=== PATIENT | female | born 1980 | race Caucasian/White ===

== ENCOUNTER 2020-03-21 10:20 | Outpatient (CLI) | payer BC, SELFPAY ==
--- NOTE | ~2020-03-21 | MM_ITS ---
EXAMINATION: MM screening rolando BI w lisa HISTORY: Screening TECHNIQUE: Craniocaudal and mediolateral oblique 3-D tomosynthesis images were obtained and synthetic 2-D images were generated. CAD analysis was submitted and interpreted. COMPARISON: No prior mammogram is available for comparison at this institution. BREAST PARENCHYMAL COMPOSITION: There are scattered areas of fibroglandular density. FINDINGS: There are asymmetries in the mid outer aspect of the left breast and upper aspect of the ri ght breast on MLO view. There are no suspicious calcifications or architectural distortion. IMPRESSION: 1. Bilateral breast asymmetries. 2. Additional mammographic views and possible breast ultrasound are recommended. BI-RADS Category 0: Incomplete: Needs additional imaging evaluation. Reviewed, dictated and finalized at location A. CARE MUSIC THERAPIST IMPRESSION: 1. Bilateral breast asymmetries. 2. Additional mammographic views and possible breast ultrasound are recommended . BI-RADS Category 0: Incomplete: Needs additional imaging evaluation.
== END 2020-03-21 10:21 | disposition home or self-care (01) ==
LOC: ANHIMG 10:27
PROVIDERS: PCP Student in an Organized Health Care Education/Training Program; Visit Provider Obstetrics & Gynecology
DX: Z12.31 Encounter for screening mammogram for malignant neoplasm of breast (principal); R92.8 Other abnormal and inconclusive findings on diagnostic imaging of breast
CPT/HCPCS: 77063; 77067

== ENCOUNTER 2020-03-22 10:15 | Outpatient (CLI) | payer BC, SELFPAY | END 2020-03-22 10:16 | disposition home or self-care (01) | PROVIDERS: PCP Student in an Organized Health Care Education/Training Program; Visit Provider Obstetrics & Gynecology | DX: Z01.812 Encounter for preprocedural laboratory examination (principal); R10.2 Pelvic and perineal pain | CPT/HCPCS: 36415; 86850; 86900; 86901 ==

== ENCOUNTER 2020-03-24 00:41 | Outpatient (CLI) | payer BC, SELFPAY ==
[2020-03-24 19:17] LABS: SARS-CoV-2 RNA PCR Negative
== END 2020-03-24 00:42 | disposition home or self-care (01) ==
LOC: ANHCOVIDDT 00:41
PROVIDERS: PCP Student in an Organized Health Care Education/Training Program; Visit Provider Obstetrics & Gynecology
DX: Z01.812 Encounter for preprocedural laboratory examination (principal); Z20.822 Contact with and (suspected) exposure to COVID-19
CPT/HCPCS: C9803; U0003; U0005

== ENCOUNTER 2020-03-27 01:34 | Day surgery (SDC) | payer BC, SELFPAY ==
[2020-03-21 16:15] VITALS: BMI 33.0
--- NOTE | 2020-03-22 08:36 | PM.IMHP ---
H&P: HPI History of Present Illness Date/Time: 03/22/20 08:36 Chief Complaint: pain Narrative: Linnette Rice is a 39 year old female status post hysterectomy is admitted for laparoscopy and possible left cystectomy, possible left salpingo-oophorectomy. The patient is status post hysterectomy and right salpingo-oophorectomy. She has a history of endometriosis. Risks and benefits of this procedure reviewed including but not exclusive of , aspiration pneumonia, bleeding, transfusion, perforation injury to bowel, bladder, ureters, or other internal organs with need for open laparotomy. She voiced good understanding. She had all questions answered. She asked to proceed Review of Systems Review of Systems: All systems reviewed & are unremarkable except as noted in HPI and below PMFSH Social History Social History Smoking packs per day: 1 Smoking cigarettes per day: 20.0 Years smoked: 15 Smoking pack-years: 15.00 Smoking status: Current every day smoker Tobacco type: e-cigarettes/vaping Additional smoking assessment comments: pt smoked cigarettes, 1pck/day for 15 yrs. pt currently vapes Substance use: current Substance use type: marijuana Spiritual care concerns: No Meds Home Medications and Allergies Allergies Allergy/AdvReac Type Severity Reaction Status Date / Time morphine Allergy Mild Rash Verified 03/21/20 16:35 Penicillins Allergy Unknown UNKNOWN Verified 01/05/18 06:25 Exam Const: General: no acute distress Eyes: General: appearance normal, both eyes and all related structures Neck: Neck: supple and no JVD Thyroid: thyroid normal Resp: Effort & Inspection: normal respiratory effort Auscultation: clear to auscultation bilaterally Cardio: Rate: regular rate Rhythm: regular rhythm GI: Inspection: non-distended GI Palp: Yes Soft to palpation, No Tenderness to palpation present (GI) and No Guarding due to palpation present (GI) Auscultation: normal bowel sounds : General: Yes bladder normal to inspection External Female Exam: normal external appearance Speculum Exam - Vagina: normal appearance of the vagina Speculum Exam - Cervix: Cervix absent Bimanual exam- vagina & uterus: uterus absent Bimanual Exam- Adnexa, other: tender Skin: General skin exam: no rashes or lesions noted Extrem: General: normal to inspection and no edema Psych: Mental Status: mental status grossly normal Affect: normal affect Assessment and Plan Additional Plan impression: pelvic pain Plan: Diagnostic laparoscopy
[2020-03-27] VITALS (11 sets, daily range): BP systolic 109–132; BP diastolic 69–98; PULSE 66–105; RESP 16–20; TEMP 36.6; O2SAT 94–100
--- NOTE | 2020-03-27 05:48 | WPDHPUPDATE1 ---
History and Physical Update Update Date/Time: 03/27/20 05:48 History and Physical has been reviewed, including an updated exam of the patient. There are NO changes in the patient's condition. Risks, benefits, and alternatives have been discussed and questions answered. Patient agrees to proceed with procedure.
[2020-03-27] MEDS: LACTATED RINGERS 1,000 ML 30 ML IV CONT ×3 (07:40→11:45)
[2020-03-27] MEDS: ACETAMINOPHEN 500 MG TABLET 1000 MG PO (07:49)
[2020-03-27] MEDS: KETOROLAC 15 MG/ML VIAL (*BKC) IV PUSH (07:50)
--- NOTE | 2020-03-27 09:04 | WPDANESEPPF ---
Anes - Initial Pre Proc Eval Procedure: Operation Date: 03/27/20 09:15 Proposed Procedures p Diagnostic Laparoscopy - Regis Rodriguez MD Date/Time: 03/27/20 09:04 Surgeon: Regis Rodriguez MD Pre Op Diagnosis: Pelvic Pain Patient Data Age: 39 Gender: F Height: 5 ft 10 in Weight: 104.33 kg Allergies Allergy/AdvReac Type Severity Reaction Status Date / Time morphine Allergy Severe Rash Verified 03/27/20 08:57 Penicillins Allergy Unknown UNKNOWN Verified 03/27/20 08:57 Home Medications Medication Instructions Recorded Confirmed Type oxycodone-acetaminophen [Percocet] 1 tablet PO Q4H PRN #20 tablet 03/27/20 Rx Patient hx anesthesia problems: none Family hx anesthesia problems: none PMFSH Past Medical History Medical History Vaping nicotine dependence, non-tobacco product Social History Social History Smoking packs per day: 1 Smoking cigarettes per day: 20.0 Years smoked: 15 Smoking pack-years: 15.00 Smoking status: Current every day smoker Tobacco type: e-cigarettes/vaping Additional smoking assessment comments: pt smoked cigarettes, 1pck/day for 15 yrs. pt currently vapes Substance use: current Substance use type: marijuana Living arrangements: with family Spiritual care concerns: No Anes - Eval Final PreProcedure Day of Procedure 03/27/20 09:04 Patient weight: obese Heart: regular rate and rhythm Lungs: decreased breath sounds Airway: Mallampati scale class II Neurological: alert and oriented Last oral intake: >/= 8 hours ASA classification: III Emergent: no Anesthetic plan: proceed Anesthesia type and monitoring: general ETT and standard monitoring Informed Consent: The patient's anesthetic plan and its attendant risks and benefits were discussed with the patient/family/POA. Questions were solicited and answers provided to the satisfaction of the patient/family/POA.
--- NOTE | 2020-03-27 10:06 | P.OP_ITS ---
Procedure Note - Detailed Date of procedure: 03/27/20 Pre-op diagnosis: Pelvic Pain Surgeon: Regis Rodriguez MD Postop diagnosis: Complex left ovarian cyst/pelvic adhesions/pelvic pain Procedure: Laparoscopic left salpingo-oophorectomy and extensive lysis of adhesions Anesthesia: General endotracheal EBL: 5cc Complications: None Findings: Absent uterus. Multiple adhesions. Complex left tubo-ovarian tubo- ovarian complex. Description procedure the patient was prepped and draped in the normal sterile fashion placed in dorsal lithotomy position. Under excellent general trach anesthesia weighted speculum placed posterior fornix vaginal sponge stick was placed in the bladder drained of clear urine. The weighted speculum was removed gloves were changed. An infraumbilical incision needle passed in. The abdomen filled with CO2 gas to 15 of mercury. The 5mm trocar advanced under direct visualization assuring injury. The patient placed in Trendelenburg and a suprapubic incision made. The 5mm trocar advanced under direct visualization assuring no injury. Multiple adhesions were seen and a complex left ovarian cyst was seen this was surrounded by:. The uterus was absent the right ovary appeared small. The adhesions from the colon to the ovarian complex were sharply dissected using Endo Kareen. A complex left ovarian cyst was seen this was attached to the ovarian fossa gentle dissection assuring no injury to the underlying structures were undertaken until the infundibulopelvic structure could be skeletonized. This was clamped, burned, cut with the LigaSure placed in Endo-Catch and removed through the left lower quadrant incision the adhesions to the vaginal cuff were sharply dissected and vigorous irrigation undertaken to clear vaginal cuff appeared clear and using the sponge stick to simulate intercourse the vagina was noted to be free of these adhesions. Blood loss was estimated at5cc. The lower site removed after gas had been from the abdomen. The upper site removed the incisions closed with 4 Monocryl glue. The instruments removed from the vagina patient. The patient was awakened. She went to recovery in satisfactory condition. All sponge, needle, instrument counts were correct. There were no immediate complications noted
[2020-03-27] MEDS: fentaNYL CITRATE INJ (*CRX) 100 MCG/2 ML VIAL 25 MCG IV PUSH ×8 (10:31→11:07)
[2020-03-27] MEDS: ONDANSETRON INJ 4 MG/2 ML VIAL IV PUSH (11:01)
[2020-03-27] MEDS: SCOPOLAMINE 1.5 MG PATCH TRANSDERM (11:38)
[2020-03-27] MEDS: diphenhydrAMINE HCl INJ 50 MG/ML VIAL 25 MG IV PUSH (11:39)
[2020-03-27] MEDS: oxyCODONE HCL (*CRX) 5 MG TAB IR PO (12:05)
== END 2020-03-27 12:49 | disposition home or self-care (01) ==
PROVIDERS: PCP Student in an Organized Health Care Education/Training Program; Visit Provider Obstetrics & Gynecology
PROC: (CPT 49320; principal; 2020-03-27 09:15)
DX: R10.2 Pelvic and perineal pain (principal); N83.292 Other ovarian cyst, left side; N73.6 Female pelvic peritoneal adhesions (postinfective); E66.9 Obesity, unspecified; Z68.33 Body mass index [BMI] 33.0-33.9, adult
CPT/HCPCS: 58661; 88305; A9270; J0330; J1100; J1200; J1885; J2250; J2405; J2704; J3010; J7030; J7120

== ENCOUNTER 2020-04-17 13:28 | Outpatient (CLI) | payer BC, SELFPAY ==
--- NOTE | ~2020-04-17 | MMUS_ITS ---
EXAMINATION: MM diagnostic rolando BI w lisa, US breast BI limited HISTORY: Focal asymmetry of the left breast and asymmetry of the right breast on baseline screening m ammogram TECHNIQUE: Additional 3-D tomosynthesis images of the breasts were performed and synthetic 2-D images were generated. CAD analysis was submitted and interpreted. High resolution limited bilateral breast ultrasound was performed. COMPARISON: 03/21/2020 FINDINGS: MAMMOGRAPHIC FINDINGS: Right breast: No persistent asymmetry is identified with spot compression of the right breast. Left breast: There is persistent but decreased focal asymmetry in the posterior third of the outer br east at the 3:00 location. No suspicious mass or architectural distortion is identified. ULTRASOUND: There is no evidence of focal abnormal solid or cystic lesion in the vicinity of the right breast asy mmetry or the focal asymmetry of the left breast. IMPRESSION: 1. Probably benign focal asymmetry of the left breast. 2. Recommend 6 month follow-up left diagnostic mammogram and possible ultrasound. BI-RADS category 3, probably benign findings. Reviewed, dictated and finalized at location A. CASE MANAGER HOSPICE IMPRESSION: 1. Probably benign focal asymmetry of the left breast. 2. Recommend 6 month follow-up left diagnostic mammogram and possible ultrasoun d. BI-RADS category 3, probably benign findings.
== END 2020-04-17 13:29 | disposition home or self-care (01) ==
LOC: ANHIMG 13:29
PROVIDERS: PCP Student in an Organized Health Care Education/Training Program; Visit Provider Obstetrics & Gynecology
DX: R92.8 Other abnormal and inconclusive findings on diagnostic imaging of breast (principal)
CPT/HCPCS: 76642; 77062; 77066; G0279

== ENCOUNTER 2020-10-23 12:59 | Outpatient (CLI) | payer BC, SELFPAY ==
--- NOTE | ~2020-10-23 | MMUS_ITS ---
EXAMINATION: MM diagnostic rolando LT w lisa, US breast LT complete HISTORY: Follow-up left breast asymmetry TECHNIQUE: Additional 3-D tomosynthesis images of the left breast were performed and synthetic 2-D im ages were generated. CAD analysis was submitted and interpreted. High resolution complete left breast ultrasound was performed. COMPARISON: Comparison to multiple prior studies sequentially, with oldest reviewed study dated 04/17. BREAST PARENCHYMAL COMPOSITION: Breast composed of scattered areas of fibroglandular density. FINDINGS: MAMMOGRAPHIC FINDINGS: There is a centrally located left breast mass measuring 7 mm, likely benign. There are no suspicious calcifications or architectural distortion. ULTRASOUND: Limited left breast ultrasound: There is 7.6 mm cyst at the 3:00 position, 6 cm from the nipple, like ly corresponding to the mass identified on mammography. No suspicious solid masses. IMPRESSION: 1. No evidence for malignancy in the left breast. Benign findings. 2. Routine yearly screening mammogram and regular clinical breast examination are recommended. BI-RADS Category 2: Benign finding(s). Reviewed, dictated and finalized at location A. IMPRESSION: 1. No evidence for malignancy in the left breast. Benign findings. 2. Routine yearly screening mammogram and regular clinical breast examination a re recommended. BI-RADS Category 2: Benign finding(s).
== END 2020-10-23 13:00 | disposition home or self-care (01) ==
LOC: ANHIMG 13:02
PROVIDERS: PCP Student in an Organized Health Care Education/Training Program; Visit Provider Obstetrics & Gynecology
DX: R92.8 Other abnormal and inconclusive findings on diagnostic imaging of breast (principal)
CPT/HCPCS: 76641; 77061; 77065; G0279

== ENCOUNTER 2021-11-22 07:36 | Outpatient (CLI) | payer BC, SELFPAY ==
--- NOTE | ~2021-11-22 | MM_ITS ---
EXAMINATION: MM screening rolando BI w lisa HISTORY: Screening mammogram TECHNIQUE: Craniocaudal and mediolateral oblique 3-D tomosynthesis images were obtained and synthetic 2-D images were generated. CAD analysis was submitted and interpreted. COMPARISON: 10/23/2020 diagnostic left mammogram and complete left breast ultrasound 04/17/2020 bilateral diagnostic mammogram and Limited bilateral breast ultrasound 03/21/2020 screening bilateral mammogram BREAST PARENCHYMAL COMPOSITION: There are scattered areas of fibroglandular density. FINDINGS: There is no evidence of suspicious mass, calcification, or architectural distortion to sugg est malignancy in either breast. There has been no suspicious interval change. IMPRESSION: 1. No mammographic evidence of malignancy. 2. Recommend routine screening mammography in one year. BI-RADS Category 1: Negative Reviewed, dictated and finalized at location A.
== END 2021-11-22 07:37 | disposition home or self-care (01) ==
PROVIDERS: PCP Student in an Organized Health Care Education/Training Program; Visit Provider Student in an Organized Health Care Education/Training Program
DX: Z12.31 Encounter for screening mammogram for malignant neoplasm of breast (principal)
CPT/HCPCS: 77063; 77067

== ENCOUNTER 2022-01-01 10:27 | Emergency (ER) | payer BC, SELFPAY ==
--- NOTE | ~2022-01-01 | XR_ITS ---
EXAMINATION: XR knee LT min 4V DATE: 01/01/2022 11:37 INDICATION: Left knee pain TECHNIQUE: Four views of the left knee were obtained. COMPARISON: None. FINDINGS: Alignment is normal. No fracture or osteochondral lesion. There is mild tricompartmental os teoarthritis characterized by tiny marginal osteophytes. No joint effusion/synovitis. Soft tissues a re unremarkable. IMPRESSION: 1. No acute osseous abnormality. Reviewed, dictated and finalized at location B. CH WORKER
--- NOTE | ~2022-01-01 | XR_ITS ---
EXAMINATION: XR hand LT min 3V INDICATION: Left hand pain TECHNIQUE: Three views of the left hand are obtained. COMPARISON: None available FINDINGS: Bone alignment is normal. There is no fracture. There is mild osteoarthritis of multiple in terphalangeal joints. The soft tissues are unremarkable. IMPRESSION: 1. No acute osseous abnormality. Reviewed, dictated and finalized at location B. CAPTURE CLERK
[2022-01-01 10:36] VITALS: BP 118/85; PULSE 75; RESP 16; TEMP 36.1; O2SAT 100
--- NOTE | 2022-01-01 11:13 | ED.EXTPRO ---
HPI - Extremity Problem General Chief complaint: Unspecified Stated complaint: Left Hand/Knee Pain Time Seen by Provider: 01/01/22 11:19 Source: patient, RN notes reviewed and old records reviewed Mode of arrival: ambulatory Limitations: no limitations History of Present Illness HPI Narrative: 41-year-old female presents to the [facility] with complaints of left hand pain and left knee pain. Patient denies any direct trauma. Reports swelling to the MCP of the 4th metacarpal. Patient is also complaining of knee pain worse with walking downstairs. Tried making appointment with primary care provider and can not get her in until January. Related Data Allergies Allergy/AdvReac Type Severity Reaction Status Date / Time morphine Allergy Severe Rash Verified 01/01/22 10:55 Penicillins Allergy Unknown UNKNOWN Verified 01/01/22 10:55 Review of Systems Review of Systems: All systems reviewed & are unremarkable except as noted in HPI and below Constitutional: Constitutional: Reports no additional constitutional complaints, Denies chills and Denies fever(s) Eyes: Eyes: Reports no additional eye complaints ENT: Reports system reviewed and no additional complaints, except as documented Cardiovascular: Cardiovascular: Reports no additional cardiovascular complaints Respiratory: Respiratory: Reports no additional respiratory complaints Gastrointestinal: Gastrointestinal: Reports no additional gastrointestinal complaints Musculoskeletal: Musculoskeletal: Reports as per HPI Integumentary/Breasts: Skin/Breast: Reports system reviewed and no additional complaints, except as docu Neurologic: Reports system reviewed and no additional complaints, except as documented Psychiatric: Psychiatric: Reports no additional psychiatric complaints Allergic/Immunologic: Allergic/Immunologic: Reports no additional allergic/immunologic complaints [facility] Past Medical History Medical History Vaping nicotine dependence, non-tobacco product Social History Social History Smoking packs per day: 1 Smoking cigarettes per day: 20.0 Years smoked: 15 Smoking pack-years: 15.00 Smoking status: Current every day smoker Tobacco type: e-cigarettes/vaping Additional smoking assessment comments: pt smoked cigarettes, 1pck/day for 15 yrs. pt currently vapes Substance use: current Substance use type: marijuana Spiritual care concerns: No Comments At the time of my signature, I reviewed and agree with the nursing past medical, surgical, social, and family history. There is no relevant family history pertinent to the patient complaint. Exam Const: General: healthy appearing, comfortable, no acute distress, well developed, alert and well nourished Nutritional Appearance: well nourished Orientation/consciousness: patient oriented x3 Limitations: no limitations HENMT: Head: normal to inspection Ears: external ears normal Eyes: General: appearance normal, both eyes and all related structures Pupils: Equal, round and reactive pupils present Neck: Neck: normal visual inspection, full ROM, no lymphadenopathy and no meningeal signs Chest: Chest palpation & inspection: normal inspection of the chest Resp: Effort & Inspection: normal respiratory effort and no use of accessory muscles Auscultation: clear to auscultation bilaterally, no crackles, no rales, no rhonchi and no wheezes Cardio: Rate: regular rate Rhythm: regular rhythm Back/Spine/Pelvis: Cervical Spine: cervical ROM normal and No Cervical spine tenderness Thoracic/Lumbar Spine: thoracic and lumbar spine normal to inspection and thoraco-lumbar ROM normal Skin: General skin exam: normal color Rashes: no rashes Wounds: no wounds Neuro: General: patient oriented x3, moves all extremities, no meningeal signs and no focal motor deficits Cranial nerves: Yes Equal, round and react
== END 2022-01-01 11:57 | disposition home or self-care (01) ==
PROVIDERS: Emergency Provider Nurse Practitioner; PCP Family Medicine
DX: M17.12 Unilateral primary osteoarthritis, left knee (principal); M19.042 Primary osteoarthritis, left hand; F17.290 Nicotine dependence, other tobacco product, uncomplicated
CPT/HCPCS: 73130; 73564; 99214; G0463

== ENCOUNTER 2022-06-28 19:25 | Emergency (ER) | payer BC, SELFPAY ==
--- NOTE | ~2022-06-28 | XR_ITS ---
EXAM: XR tibia fibula LT 2V DATE: 06/28/2022 20:43 HISTORY: leg pain . COMPARISON: None available. FINDINGS: Normal mineralization. No fracture or dislocation. No lytic or blastic lesion. Joint space s are maintained. No erosion or periosteal change. Soft tissues within normal limits. IMPRESSION: No acute osseous finding in the left tibia/fibula. Reviewed, dictated and finalized at location K.
--- NOTE | ~2022-06-28 | XR_ITS ---
EXAM: XR knee LT min 4V DATE: 06/28/2022 20:43 HISTORY: knee pain . COMPARISON: None available. FINDINGS: Normal mineralization. No fracture or dislocation. No lytic or blastic lesion. Joint space s are maintained. No erosion or periosteal change. Soft tissues within normal limits. Trace left knee joint effusion. Varicose veins. IMPRESSION: No acute osseous finding in the left knee. Reviewed, dictated and finalized at location K.
--- NOTE | ~2022-06-28 | XR_ITS ---
EXAM: XR foot LT min 3V DATE: 06/28/2022 20:42 HISTORY: foot pain . COMPARISON: None available. FINDINGS: Normal mineralization. No fracture or dislocation. No lytic or blastic lesion. Joint space s are maintained. Achilles and plantar enthesopathy. No erosion or periosteal change. Soft tissues wi thin normal limits. IMPRESSION: No acute osseous finding in the left foot. Reviewed, dictated and finalized at location K.
[2022-06-28 19:33] VITALS: BP 118/82; PULSE 89; RESP 18; TEMP 36.9; O2SAT 97
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
== END 2022-06-28 21:34 | disposition home or self-care (01) ==
PROVIDERS: Emergency Provider Emergency Medicine; PCP Family Medicine
DX: S80.12XA Contusion of left lower leg, initial encounter (principal); S80.812A Abrasion, left lower leg, initial encounter; S50.02XA Contusion of left elbow, initial encounter; S89.92XA Unspecified injury of left lower leg, initial encounter; Z87.442 Personal history of urinary calculi; F17.290 Nicotine dependence, other tobacco product, uncomplicated; V86.56XA Driver of dirt bike or motor/cross bike injured in nontraffic accident, initial encounter
CPT/HCPCS: 73564; 73590; 73630; 99284

== ENCOUNTER 2022-07-20 15:48 | Inpatient (IN) | payer BC, SELFPAY ==
--- NOTE | ~2022-07-20 | CT_ITS ---
EXAMINATION: CT abdomen pelvis wo con DATE: 07/20/2022 17:00 INDICATION: Right flank pain, nausea and vomiting TECHNIQUE: Computed tomography (CT) of the abdomen and pelvis was performed without intravenous contr ast. Automated exposure control and iterative reconstruction technique were employed. The dose-length product was 1237.00 mGy-cm. COMPARISON: 01/05/2018 FINDINGS: Lung bases are clear. Heart size is normal. No pericardial or pleural effusion. Small sliding-type hi atal hernia. Liver, gallbladder, spleen, pancreas and bilateral adrenal glands are normal. There are numerous bilateral small renal stones the largest measuring up to 5 mm at both kidneys. Also several bilateral hypodense renal cysts, the largest on the left measuring up to 2 cm. No hydronephrosis or s tones seen along either ureter. Bowels including the appendix are normal. Bladder is normal. The uter us is not identified and has likely been surgically resected. No free intraperitoneal gas or fluid. N o pathologically enlarged abdominal or pelvic lymphadenopathy. Bones are unremarkable. IMPRESSION: 1. Bilateral nephrolithiasis without evident ureteral stones or hydronephrosis. No acute intra-abdomi nal/pelvic process. 2. Small sliding-type hiatal hernia. Reviewed, dictated and finalized at location A. IMPRESSION: 1. Bilateral nephrolithiasis without evident ureteral stones or hydronephrosis. No acute intra-abdominal/pelvic process. 2. Small sliding-type hiatal hernia.
[2022-07-20 16:08] VITALS: BP 98/53; PULSE 119; RESP 20; TEMP 37.4; O2SAT 97
--- NOTE | 2022-07-20 16:20 | ED.FEMALEGU ---
HPI - Female Genitourinary General Chief complaint: Urogenital-Female <JOHANNE Mansfield Last Filed: 07/20/22 19:44> Stated complaint: flank pain <JOHANNE Mansfield Last Filed: 07/20/22 19:44> Time Seen by Provider: 07/20/22 16:19 <JOHANNE Mansfield Last Filed: 07/20/22 19:44> Source: patient <JOHANNE Mansfield Last Filed: 07/20/22 19:44> Mode of arrival: ambulatory <JOHANNE Mansfield Last Filed: 07/20/22 19:44> Limitations: no limitations <JOHANNE Mansfield Last Filed: 07/20/22 19:44> History of Present Illness HPI Narrative: Patient is a 41 y/o female who presents to the ED with c/o R flank pain. Patient reports she developed pain in her right lower abdomen 2 days ago. She developed worsening pain yesterday in addition to right flank pain. Patient began vomiting today and developed a fever up to 103 degrees Fahrenheit at home, which prompted her presentation. She took ibuprofen around 11 AM for her fever. Patient has history of kidney stones. She also mentions she was diagnosed with a UTI a few weeks ago and finished a course of Macrobid at that time. Patient denies any current urinary symptoms, denies dysuria, hematuria, urinary frequency. Denies any issues with bowels. <JOHANNE Mansfield Last Filed: 07/20/22 19:44> Related Data Home medications: Home Medications Medication Instructions Recorded Confirmed clobetasol 0.05 % topical ointment 1 applic topical PRN PRN Rash 07/20/22 07/20/22 <JOHANNE Mansfield Last Filed: 07/20/22 19:44> Allergies/Adverse reactions: Allergies Allergy/AdvReac Type Severity Reaction Status Date / Time morphine Allergy Severe Rash Verified 07/20/22 20:23 Penicillins Allergy Unknown UNKNOWN Verified 07/20/22 20:23 <Jia Alvarado PA-C - Last Filed: 07/20/22 19:44> Review of Systems Review of Systems: CONSTITUTIONAL: See HPI. CARDIOVASCULAR: Denies chest pain. RESPIRATORY: Denies dyspnea. GASTROINTESTINAL: See HPI. GENITOURINARY: Denies dysuria or hematuria. SKIN: Denies rash or itching. MUSCULOSKELETAL: See HPI. NEUROLOGIC: Denies headache, numbness, or weakness. <JOHANNE Mansfield Last Filed: 07/20/22 19:44> All systems reviewed & are unremarkable except as noted in HPI and below <JOHANNE Mansfield Last Filed: 07/20/22 19:44> FORMERLY [facility], [facility] Past Medical History Medical History: Medical History (Updated 07/20/22 @ 20:03 by Ana Gregory DO) Chondromalacia of both patellae Kidney stones Vaping nicotine dependence, non-tobacco product <JOHANNE Mansfield Last Filed: 07/20/22 19:44> Surgical History Surgical History: Surgical History (Updated 07/20/22 @ 19:59 by Ana Gregory DO) History of laparoscopy endometriosis History of left oophorectomy (03/2020) Ovarian cyst History of right salpingo-oophorectomy (2003) Ovarian cyst History of vaginal hysterectomy (2011) <JOHANNE Mansfield Last Filed: 07/20/22 19:44> Family History Family History: Family History (Updated 07/20/22 @ 19:56 by Ana Gregory DO) Mother Hypertension Cerebrovascular accident, Onset Age: 58 Father Hypertension <JOHANNE Mansfield Last Filed: 07/20/22 19:44> Social History Social History: Social History (Updated 07/20/22 @ 19:57 by nAa Gregory DO) Smoking packs per day: 1 Smoking cigarettes per day: 20.0 Years smoked: 15 Smoking pack-years: 15.00 Smoking status: Current every day smoker Tobacco type: e-cigarettes/vaping Additional smoking assessment comments: fills little pod once every two days Alcohol intake: never Substance use: current Substance use type: marijuana Lack of Transportation: No Lack of Food: Never True Current Housing: I Have Housing Concerned About Future Housing: No Difficulty Paying Gas/Electric Bi
[2022-07-20] MEDS: SODIUM CHLORIDE 0.9% IV 1,000 ML 999 ML IV CONT ×3 (16:25→18:29)
[2022-07-20 16:33] LABS: Basophils Percent Auto 0.3 % (0.2-1.2); Eosinophils Percent Auto 0.1 % (0-4.4); Hematocrit 37.7 % (37.0-47.0); Hemoglobin 12.9 g/dL (12.0-15.0); Immature Granulocyte Absolute 0.05 K/mm3 (0.00-0.031); Immature Granulocyte Percent A 0.4 % (0-0.5); Lymphocytes Absolute Auto 0.99 K/mm3 (0.9-3.2); Lymphocytes Percent Auto 7.1 % (18.3-44.2); Mean Corpuscular HGB Conc 34.2 g/dl (32-36); Mean Corpuscular Hemoglobin 29.5 pg (26-34); Mean Corpuscular Volume 86.1 fl (80-100); Monocytes Absolute Auto 1.1 K/mm3 (0.1-0.6); Monocytes Percent Auto 7.9 % (2.6-8.5); Neutrophils Absolute Auto 11.7 K/mm3 (1.3-6.7); Neutrophils Percent Auto 84.2 % (45.5-73.1); Platelet Count Result 230 k/mm3 (150-375); Red Blood Count 4.38 M/mm3 (4.2-5.4); White Blood Count 13.9 K/mm3 (4.5-10.0)
[2022-07-20] MEDS: ONDANSETRON INJ 4 MG/2 ML VIAL IV PUSH ×3 (16:36→23:31)
[2022-07-20] MEDS: fentaNYL CITRATE INJ (*CRX) 100 MCG/2 ML VIAL 50 MCG IV PUSH (16:36)
[2022-07-20 16:46] LABS: Alanine Aminotransferase 25 U/L (6-35); Alkaline Phosphatase 60 U/L (38-126); Anion Gap 10 mmol/L (8-16); Aspartate Amino Transferase 23 U/L (14-36); Bilirubin,Total 1.5 mg/dL (0.2-1.3); Blood Urea Nitrogen 15 mg/dL (7-17); Calcium 8.7 mg/dL (8.4-10.2); Carbon Dioxide 20 mmol/L (22-30); Chloride 105 mmol/L (98-107); Estimated CRCL calculation 87 ml/min; Estimated Glomerular Filt Rate > 60; Glucose 109 mg/dL (65-110); Lactic Acid Reflex 1.2 mmol/L (0.7-2.0); Potassium 3.5 mmol/L (3.4-5.0); Sodium 135 mmol/L (137-145)
[2022-07-20 16:52] LABS: Lipase 44 U/L (23-300)
[2022-07-20 17:04] VITALS: BP 118/65; PULSE 91; RESP 16; O2SAT 100
--- NOTE | 2022-07-20 17:36 | PC.NURSE ---
Pt states she is unable to urinate. Refuses catheter.
[2022-07-20 18:05] LABS: Appearance Urine Cloudy (Clear); Bacteria Urine 4+ /hpf; Bilirubin Urine Negative (Negative); Blood Urine 1+ (Negative); Color Urine Yellow (Yellow); Glucose Urine UA Negative (Negative); Ketones Urine 2+ mg/dL (Negative); Leukocyte Esterase Ur 2+ LEU/UL (Negative); Nitrate Urine Positive (Negative); Non Pathogenic Casts 0-2; Protein Urine 2+ mg/dL (Negative); Specific Grav Ur 1.012 (1.001-1.035); Squamous Epithelial Cell Urine None seen /hpf (Few); Urobilinogen Urine 0.2 mg/dL (<2.0); WBC Urine 51-100 /hpf; pH Urine 7.5 (5.0-9.0)
[2022-07-20 18:11] LABS: Add Urine Microscopic? YES
[2022-07-20] MEDS: KETOROLAC 30 MG/ML VIAL (*BKC) IV PUSH (18:30)
[2022-07-20] MEDS: fentaNYL CITRATE INJ (*CRX) 100 MCG/2 ML VIAL 25 MCG IV PUSH (19:44)
--- NOTE | 2022-07-20 19:52 | PM.IMHP ---
H&P: HPI History of Present Illness Date/Time: 07/20/22 19:52 Chief Complaint: Fever, right-sided abdominal pain Narrative: 41-year-old female with a past medical history of obesity, frequent urinary tract infections, and kidney stones who presented to the ER with 1 month of intermittent fevers and 3 days of flank pain. The patient reports that a month ago she went to follow-up with her endometriosis specialist and they checked a routine UA that demonstrated pyuria and was started on a week long course of nitrofurantoin. She had also mention to them at that point that she was having low-grade temperatures of 99-100 degrees. She stated of despite taking the nitrofurantoin she was still having intermittent fevers every few days. However she did not start having right flank pain until 3 days ago when she spiked a fever up to 103?. She has been having some decreased appetite. She denies any nausea or vomiting. She was also having some a right lower quadrant abdominal pain. She denies any dysuria. She states that she has not been having any changes in urinary frequency urgency or dysuria. However she has been having a sensation of incomplete bladder emptying and some dribbling. She has been having episodes of feeling lightheaded when she stands up. She has been feeling generally weak. She reports that the pain is a 7/10 in intensity it is worsened at the time of evaluation it was 5/10 intensity. The pain was sharp and stabbing and constant. She did take some [id number]-[id number] antipyretics which would help with her fever but was not really helping with her pain. Her pain was worse with walking and during movement. The patient reports that her weight has been relatively stable. She does snore. She frequently feels fatigued and has excessive daytime sleepiness. She has never been tested for sleep apnea. Review of Systems Review of Systems: 12 systems were reviewed with pertinent positives and negatives per HPI. Except as documented in the HPI, all other systems were reviewed and are negative. [facility] Past Medical History Medical History (Updated 07/20/22 @ 20:03 by Ana Gregory DO) Chondromalacia of both patellae Kidney stones Vaping nicotine dependence, non-tobacco product Surgical History Surgical History (Updated 07/20/22 @ 19:59 by Ana Gregory DO) History of laparoscopy endometriosis History of left oophorectomy (03/2020) Ovarian cyst History of right salpingo-oophorectomy (2003) Ovarian cyst History of vaginal hysterectomy (2011) Family History Family History (Updated 07/20/22 @ 19:56 by Ana Gregory DO) Mother Hypertension Cerebrovascular accident, Onset Age: 58 Father Hypertension Social History Social History (Updated 07/21/22 @ 07:27 by Ana Gregory DO) Social History: She and her have been together for 23 years but just got in 2019. They have a 23-year-old daughter and a 16-year-old son. She works at [employer]. She has smoked up to a pack of cigarettes per day and started smoking a 15. She denies any significant alcohol use. She does smoke weed on occasion. Code status: Full code Surrogate decision maker: Smoking packs per day: 1 Smoking cigarettes per day: 20.0 Years smoked: 15 Smoking pack-years: 15.00 Smoking status: Current every day smoker Tobacco type: e-cigarettes/vaping Additional smoking assessment comments: fills little pod once every two days Alcohol intake: never Substance use: current Substance use type: marijuana Lack of Transportation: No Lack of Food: Never True Current Housing: I Have Housing Concerned About Future Housing: No Difficulty Paying Gas/Electric Bills: No Difficulty Paying for Meds: No Currently Unemployed: No Education: High School Diploma/GED Difficulty w/ Childcare or Family Care: No Living arrangements: with family Additional living arrangements comments: She
[2022-07-20 19:59] VITALS: BP 103/66; PULSE 88; RESP 16; TEMP 37; O2SAT 99
--- NOTE | 2022-07-20 20:21 | ADMGEN ---
This patient, Linnette Rice, was admitted to Medical Room 348-01. Patient/family oriented to hospital policies and general routines including ID bracelet, bed and alarms, visiting hours, pain management, procedures, bathroom and other care routines, personal items, smoking policy, room service/diet, and visiting hours. Information on how to activate the Rapid Response Team has been discussed. Patient/Family are encouraged to report perceived risks to care and to ask questions if they do not understand what they are told or what they should do.
[2022-07-20 20:22] VITALS: BP 102/62; PULSE 94; RESP 20; TEMP 37.3; O2SAT 99; BMI 35.1
[2022-07-20] MEDS: SODIUM CHLORIDE 0.9% IV 1,000 ML 125 ML IV CONT (20:58)
[2022-07-20 23:39] VITALS: TEMP 37.8
[2022-07-21] VITALS (7 sets, daily range): BP systolic 103–127; BP diastolic 58–67; PULSE 74–107; RESP 17–20; TEMP 36.6–39.1; O2SAT 97–100
[2022-07-21] MEDS: PROMETHAZINE HCL 25 MG/ML AMPUL IM (01:13)
[2022-07-21] MEDS: KETOROLAC 30 MG/ML VIAL (*BKC) IV PUSH (01:14)
[2022-07-21] MEDS: HYDROmorphone HCL INJ (*CRX) 2 MG/ML VIAL 0.5 MG IV PUSH (05:13)
[2022-07-21] MEDS: SODIUM CHLORIDE 0.9% IV 1,000 ML 125 ML IV CONT ×2 (05:13→12:37)
[2022-07-21 06:48] LABS: Basophils Percent Auto 0.4 % (0.2-1.2); Eosinophils Percent Auto 0.4 % (0-4.4); Hematocrit 35.5 % (37.0-47.0); Hemoglobin 11.3 g/dL (12.0-15.0); Immature Granulocyte Absolute 0.05 K/mm3 (0.00-0.031); Immature Granulocyte Percent A 0.5 % (0-0.5); Lymphocytes Absolute Auto 1.65 K/mm3 (0.9-3.2); Lymphocytes Percent Auto 15.5 % (18.3-44.2); Mean Corpuscular HGB Conc 31.8 g/dl (32-36); Mean Platelet Volume 10.4 fl (7.4-10.4); Monocytes Absolute Auto 1.1 K/mm3 (0.1-0.6); Monocytes Percent Auto 10.6 % (2.6-8.5); Neutrophils Absolute Auto 7.7 K/mm3 (1.3-6.7); Neutrophils Percent Auto 72.6 % (45.5-73.1); Platelet Count Result 203 k/mm3 (150-375); Red Cell Distribution Width 12.3 % (11.5-14.5); White Blood Count 10.7 K/mm3 (4.5-10.0)
[2022-07-21 07:07] LABS: Anion Gap 5 mmol/L (8-16); Blood Urea Nitrogen 12 mg/dL (7-17); Calcium 7.7 mg/dL (8.4-10.2); Carbon Dioxide 26 mmol/L (22-30); Chloride 110 mmol/L (98-107); Estimated CRCL calculation 87 ml/min; Estimated Glomerular Filt Rate > 60; Glucose 95 mg/dL (65-110); Potassium 3.4 mmol/L (3.4-5.0); Sodium 141 mmol/L (137-145)
[2022-07-21] MEDS: ONDANSETRON INJ 4 MG/2 ML VIAL IV PUSH (08:20)
[2022-07-21] MEDS: ENOXAPARIN 40 MG/0.4 ML SYRINGE SUB-Q (08:21)
[2022-07-21] MEDS: ACETAMINOPHEN 325 MG TABLET 650 MG PO ×2 (12:37→20:44)
--- NOTE | 2022-07-21 14:13 | PM.IMPN ---
Progress Note: A&P Assessment and Plan (1) Sepsis: Qualifiers: Sepsis type: sepsis due to unspecified organism Sepsis acute organ dysfunction status: without acute organ dysfunction Qualified Code(s): A41.9 - Sepsis, unspecified organism Code(s): A41.9 - Sepsis, unspecified organism Status: Acute Assessment and Plan: Clinically due to UTI Improving (2) Pyelonephritis: Code(s): N12 - Tubulo-interstitial nephritis, not specified as acute or chronic Status: Acute Assessment and Plan: Likely partially treated due to resistant to oral antibiotics that were utilized 07/21 will be day 2 Rocephin and remains afebrile C/s pending (3) Acute dehydration: Code(s): E86.0 - Dehydration Status: Acute Assessment and Plan: Resolved with IV fluids but nausea and emesis persist, likely due to pyelitis with sepsis Trial of prn prochlorperazine 07/21, warned re: side effects, encouraged po intake as tolerated 07/21 added KCL to IVF (1/2 NS) at 100 ml/hr Subjective Date/time seen: 07/21/22 14:13 Interval history: Admitted 07/20 with UTI and sepsis. Had been treating UTI for about 3 weeks ago kept recurring. Fever to 103 prior to coming to the hospital. Only complaints today arenausea and headache. Vomiting up clear liquid. Zofran and promethazine not effective. Headache is not severe. Able to move neck around without increasing the pain. No visual symptoms. No chest pain or shortness of breath. No diarrhea. No dysuria or hematuria. No focal weakness or numbness. Review of Systems Review of Systems: All systems reviewed & are unremarkable except as noted in HPI and below Exam Narrative: HEENT: PERRL, sclerae nonicteric, pharyngeal mucosa pink and intact NECK: No JVD CHEST: Clear to auscultation. Normal effort. HEART: NL S1/S2, regular, no murmur ABDOMEN: BS+, soft, nontender, no mass, no bruits EXTREMITIES: No cyanosis, edema, or clubbing NEUROLOGIC: CN intact and symmetric to inspection. MUSCULOSKELETAL: Tone and strength symmetric. PSYCH: Alert. Oriented to person, place, and time. Objective Data Vital Signs Vital Signs: Vital Signs - 24 hr 07/20/22 16:08 07/20/22 17:04 07/20/22 19:59 Temperature 99.3 F 98.6 F Pulse Rate 119 H 91 88 Respiratory Rate 20 16 16 Blood Pressure 98/53 L 118/65 103/66 Pulse Oximetry 97 100 99 Oxygen Delivery Room Air 07/20/22 20:22 07/20/22 23:39 07/21/22 05:07 Temperature 99.2 F 100.1 F H 99.1 F Pulse Rate 94 81 Respiratory Rate 20 20 Blood Pressure 102/62 105/66 Pulse Oximetry 99 99 Oxygen Delivery 07/21/22 08:32 Temperature Pulse Rate Respiratory Rate Blood Pressure Pulse Oximetry Oxygen Delivery Room Air Intake/Output Intake/Output: Intake & Output 07/18/22 07/19/22 07/20/22 07/21/22 23:59 23:59 23:59 23:59 Intake Total 3050 2660 Output Total 900 Balance 3050 1760 Meds/Results Medications: Active Medications Generic Name Dose Route Start Last Admin Trade Name Freq PRN Reason Stop Dose Admin Acetaminophen 650 mg 07/20/22 20:00 07/21/22 12:37 Acetaminophen 325 Mg Tablet PO 650 mg Q4H PRN Administration Mild Pain (1-3) or Fever Enoxaparin Sodium 40 mg 07/21/22 09:00 07/21/22 08:21 Enoxaparin 40 Mg/0.4 Ml Syringe SUB-Q 40 mg DAILY MERLY Administration Hydromorphone HCl 0.5 mg 07/20/22 19:43 07/21/22 05:13 Hydromorphone Hcl Inj (*Crx) 2 Mg/Ml Vial IV PUSH 0.5 mg Q3H PRN Administration Pain Rated 7-10 Ceftriaxone Sodium 1 gm in 50 mls @ 100 mls/hr 07/21/22 18:00 Rocephin 1 Gm/Ns 50 Ml IVPB Q24H MERLY Sodium Chloride 1,000 mls @ 125 mls/hr 07/20/22 19:40 07/21/22 12:37 Normal Saline Iv IV CONT 125 mls/hr .Q8H MERLY Administration Ketorolac Tromethamine 30 mg 07/20/22 19:43 07/21/22 01:14 Ketorolac 30 Mg/Ml Vial (*Bkc) IV PUSH 30 mg Q6H PRN Administration Pain Rated 4-6 Onda
[2022-07-21] MEDS: KCL 20 MEQ/D5/0.45% SOD CHL 1,000 ML 100 ML IV CONT (15:31)
[2022-07-21] MEDS: PROCHLORPERAZINE EDISYLATE 10 MG/2 ML VIAL IV PUSH (15:35)
[2022-07-22] MEDS: PROCHLORPERAZINE EDISYLATE 10 MG/2 ML VIAL IV PUSH (02:54)
[2022-07-22] MEDS: KCL 20 MEQ/D5/0.45% SOD CHL 1,000 ML 100 ML IV CONT (04:35)
[2022-07-22 05:17] VITALS: BP 109/64; PULSE 82; RESP 16; TEMP 36.5; O2SAT 98
[2022-07-22 06:08] LABS: Hemoglobin 10.7 g/dL (12.0-15.0); Mean Corpuscular HGB Conc 32.4 g/dl (32-36); Mean Corpuscular Hemoglobin 28.7 pg (26-34); Mean Corpuscular Volume 88.5 fl (80-100); Mean Platelet Volume 10.2 fl (7.4-10.4); Platelet Count Result 199 k/mm3 (150-375); Red Blood Count 3.73 M/mm3 (4.2-5.4); Red Cell Distribution Width 12.2 % (11.5-14.5)
[2022-07-22 06:10] LABS: Anion Gap 3 mmol/L (8-16); Blood Urea Nitrogen 6 mg/dL (7-17); Calcium 7.7 mg/dL (8.4-10.2); Carbon Dioxide 26 mmol/L (22-30); Chloride 109 mmol/L (98-107); Estimated CRCL calculation 122 ml/min; Estimated Glomerular Filt Rate > 60; Glucose 125 mg/dL (65-110); Potassium 3.4 mmol/L (3.4-5.0); Sodium 138 mmol/L (137-145)
[2022-07-22] MEDS: ENOXAPARIN 40 MG/0.4 ML SYRINGE SUB-Q (09:28)
--- NOTE | 2022-07-22 12:45 | PM.IMPN ---
Progress Note: A&P Assessment and Plan (1) Sepsis: Qualifiers: Sepsis acute organ dysfunction status: without acute organ dysfunction Sepsis type: sepsis due to unspecified organism Qualified Code(s): A41.9 - Sepsis, unspecified organism Code(s): A41.9 - Sepsis, unspecified organism Status: Acute Assessment and Plan: Clinically due to UTI Patient had fever overnight. She has not fever since. Discussed with her that she needs to be fever free for 24 hrs without medications. Improving (2) Pyelonephritis: Code(s): N12 - Tubulo-interstitial nephritis, not specified as acute or chronic Status: Acute Assessment and Plan: Likely partially treated due to resistant to oral antibiotics that were utilized 07/22 will be day 3 Rocephin Culture positive for E. coli, sensitivities pending. Blood cultures no growth to date (3) Acute dehydration: Code(s): E86.0 - Dehydration Status: Acute Assessment and Plan: Resolved with IV fluids but nausea and emesis persist, likely due to pyelitis with sepsis Trial of prn prochlorperazine 07/21, warned re: side effects, encouraged po intake as tolerated 07/21 added KCL to IVF (1/2 NS) at 100 ml/hr Subjective Date/time seen: 07/22/22 12:45 Interval history: Patient doing good today. She is still having some urinary frequency but this could be due to IV fluids. She states that she is going approximately every hour. She denies hematuria and burning. She states that she ran a fever last night. She has not received Tylenol yet today. Discussed with her that she needs to be 24 hours fever free without antipyretics in order to be discharge. She verbalized understanding. Review of Systems Review of Systems: All systems reviewed & are unremarkable except as noted in HPI and below Exam Narrative: GENERAL: Comfortable, no acute distress HENMT: moist mucous membranes EYES: EOM intact b/l NECK: no lymphadenopathy RESPIRATORY: clear to auscultation CARDIO: RRR GI: soft, nontender, bowel sounds present SKIN: no rashes EXTREMITIES: no edema, redness or tenderness Objective Data Vital Signs Vital Signs: Vital Signs - 24 hr 07/21/22 14:42 07/21/22 20:41 07/21/22 20:44 Temperature 97.9 F 102.1 F H 102.4 F H Pulse Rate 74 107 H Respiratory Rate 17 20 Blood Pressure 103/58 L 127/67 Pulse Oximetry 97 100 Oxygen Delivery 07/21/22 22:27 07/21/22 20:00 07/21/22 21:40 Temperature 100.5 F H 100.2 F H Pulse Rate 107 H Respiratory Rate 20 Blood Pressure Pulse Oximetry 100 Oxygen Delivery Room Air 07/22/22 05:17 07/22/22 09:28 Temperature 97.7 F Pulse Rate 82 Respiratory Rate 16 Blood Pressure 109/64 Pulse Oximetry 98 Oxygen Delivery Room Air Intake/Output Intake/Output: Intake & Output 07/19/22 07/20/22 07/21/22 07/22/22 23:59 23:59 23:59 23:59 Intake Total 3050 4400 2140 Output Total 900 Balance 3050 3500 2140 Meds/Results Medications: Active Medications Generic Name Dose Route Start Last Admin Trade Name Freq PRN Reason Stop Dose Admin Acetaminophen 650 mg 07/20/22 20:00 07/21/22 20:44 Acetaminophen 325 Mg Tablet PO 650 mg Q4H PRN Administration Mild Pain (1-3) or Fever Enoxaparin Sodium 40 mg 07/21/22 09:00 07/22/22 09:28 Enoxaparin 40 Mg/0.4 Ml Syringe SUB-Q 40 mg DAILY MERLY Administration Hydromorphone HCl 0.5 mg 07/20/22 19:43 07/21/22 05:13 Hydromorphone Hcl Inj (*Crx) 2 Mg/Ml Vial IV PUSH 0.5 mg Q3H PRN Administration Pain Rated 7-10 Ceftriaxone Sodium 1 gm in 50 mls @ 100 mls/hr 07/21/22 18:00 07/21/22 18:49 Rocephin 1 Gm/Ns 50 Ml IVPB Infused Q24H MERLY Infusion Potassium Chloride/Dextrose/Sod Cl 1,000 mls @ 100 mls/hr 07/21/22 14:20 07/22/22 04:35 Kcl 20 Meq/D5/0.45% Sod Chl IV CONT 100 mls/hr .Q10H MERLY Administration Ketorolac Tromethamine 30 mg
[2022-07-22 13:48] VITALS: BP 125/80; PULSE 83; RESP 20; TEMP 36.8; O2SAT 99
--- NOTE | 2022-07-23 06:51 | P.DS_ITS ---
DS: Admitting Diagnosis Discharge Date 07/22/22 Admitting Diagnosis UTI DS: Discharge Diagnosis Discharge Diagnosis (1) Sepsis: Qualifiers: Sepsis type: sepsis due to unspecified organism Sepsis acute organ dysfunction status: without acute organ dysfunction Qualified Code(s): A41.9 - Sepsis, unspecified organism Code(s): A41.9 - Sepsis, unspecified organism Status: Acute (2) Pyelonephritis: Code(s): N12 - Tubulo-interstitial nephritis, not specified as acute or chronic Status: Acute (3) Acute dehydration: Code(s): E86.0 - Dehydration Status: Acute DS: Summary Hospital Course Hospital Course: 41-year-old female with past medical history of BC, recurrent UTIs, kidney stones presented to the ED on 07/20/2022 with 1 month of intermittent fevers and 3 days of flank pain. She also has sensation of incomplete bladder emptying and dribbling urine. Patient had been using [id number] antipyretics to help with her fever and pain. Patient's urine suggestive of UTI. Patient started on ceftriaxone. Urine culture positive for E coli. On the night of 07/21/2022 patient had fever 102.4. Next day it was explained to the patient that she should be fever free without aid of antipyretics prior to discharge. the night of 07/22/2022 patient decided to leave AMA. Urine sensitivities were not back yet. Is explained to the patient her risks for leaving the hospital such as under treatment of her infection, worsening infection and . She verbalizes understanding and still proceeded to leave AMA. Antibiotics were sent to [facility] and patient was urged to picker tender her antibiotics. Will follow patient's blood cultures and urine cultures. Time Spent with Patient Time attestation: Total time spent providing and/or coordinating discharge services: DS: Data Data Completed and Pending Labs on day of discharge: Preliminary micro results at discharge 07/20/22 17:53 Urine Culture - Preliminary Urine Clean Catch Escherichia Coli 07/20/22 18:45 Blood Culture - Preliminary Blood 07/20/22 18:45 Blood Culture - Preliminary Blood Discharge Plan Discharge Attending physician on discharge: Jayson Dempsey Discharging Clinician: Alanna Jean Baptiste Patient Disposition: Left Against Medical Advice Patient Instructions: How to Stop Smoking (DC), Pain Management (DC), Electronic Cigarettes and Your Health (GEN) Follow-up/Referrals: Hossein Espinosa MD [Primary Care Provider] - 1 Week (Follow up with PCP in one week ) Discharge Medications: New cefdinir 300 mg capsule 300 mg PO Q12H Qty: 10 0RF No Action ibuprofen 600 mg tablet 600 mg PO TID PRN (Reason: fever or pain) Qty: 30 0RF clobetasol 0.05 % ointment 1 applic TOPICAL PRN PRN (Reason: Rash) Date of admission: 07/22/22 11:26 Primary Care Provider: Hossein Espinosa Admitting Provider: Ana Gregory Attending physician on admission: Ana Gregory Condition: Stable
--- NOTE | 2022-07-30 08:05 | PC.NURSE ---
Blood cultures are negative.
== END 2022-07-22 15:21 | disposition left against medical advice (07) | DRG 872 ==
LOC: ANHED 19:18 → ANH3MED 20:01
PROVIDERS: Emergency Medicine; Internal Medicine; Admitting Provider Internal Medicine; Emergency Provider Physician Assistant; PCP Family Medicine; Visit Provider Internal Medicine Critical Care Medicine
DX: A41.9 Sepsis, unspecified organism (principal); N39.0 Urinary tract infection, site not specified; B96.20 Unspecified Escherichia coli [E. coli] as the cause of diseases classified elsewhere; N20.0 Calculus of kidney; E86.0 Dehydration; F17.290 Nicotine dependence, other tobacco product, uncomplicated; E66.9 Obesity, unspecified; Z68.35 Body mass index [BMI] 35.0-35.9, adult; Z90.710 Acquired absence of both cervix and uterus; Z90.721 Acquired absence of ovaries, unilateral; Z90.722 Acquired absence of ovaries, bilateral
CPT/HCPCS: 36415; 74176; 80048; 80053; 81001; 83605; 83690; 85025; 85027; 87040; 87077; 87086; 87186; 96361; 96365; 96366; 96367; 96372; 96375; 96376; 99285; A9270; G0378; J0696; J0780; J1170; J1650; J1885; J2405; J2550; J3010; J3480; J7030

== ENCOUNTER 2023-07-14 13:58 | Inpatient (IN) | payer BC, SELFPAY ==
[2023-07-14] VITALS (7 sets, daily range): BP systolic 132–163; BP diastolic 70–123; PULSE 74–89; RESP 14–18; TEMP 36.1–36.3; O2SAT 97–100; BMI 33.3
--- NOTE | ~2023-07-14 | XR_ITS ---
EXAMINATION: XR abdomen/kub 1V DATE: 07/16/2023 15:45 INDICATION: Kidney stones. TECHNIQUE: A supine view of the abdomen on 2 radiographs was obtained. COMPARISON: CT abdomen and pelvis 07/16/2023 FINDINGS: There are no dilated loops of bowel. There is a right internal ureteral stent in expected p osition. There are multiple stones in each kidney measuring up to 5 mm. There are phleboliths in the pelvis. IMPRESSION: 1. Bilateral kidney stones. 2. Right internal ureteral stent in expected position. Reviewed, dictated and finalized at location A.
--- NOTE | ~2023-07-14 | CT_ITS ---
EXAMINATION: CT abdomen pelvis wo con DATE: 07/14/2023 16:20 INDICATION: Right flank pain TECHNIQUE: Computed tomography (CT) of the abdomen and pelvis was performed without intravenous contr ast. Automated exposure control and iterative reconstruction technique were employed. Exam dose: 944 .64 mGy-cm total exam DLP. COMPARISON: 07/20/2022 CT abdomen pelvis FINDINGS: The lung bases are clear. Normal heart size. No pericardial or pleural effusion. Small sliding hiatal hernia. The liver, gallbladder, bile ducts, spleen, pancreas, pancreatic duct and adrenal glands are unremark able. Multiple bilateral renal cysts. There are innumerable bilateral nonobstructing renal calculi. There is moderately prominent right hyd roureteronephrosis due to an obstructing approximately 3.7 x 3.8 x 4.4 mm distal right ureteral calcu ashli. Moderately prominent diffuse thickening of the urinary bladder wall. Status post hysterectomy. There is atherosclerotic calcification of the abdominal aorta but no abdominal aortic aneurysm. No in traperitoneal or retroperitoneal or pelvic mass lesion or adenopathy or ascites is detected. Normal appendix. No bowel obstruction, bowel wall thickening, pneumatosis or intraperitoneal free air . Small fat-containing umbilical hernia. No suspicious osteolytic or osteoblastic lesions. IMPRESSION: Obstructing approximately 4.5 mm distal right ureteral calculus with moderately prominen t right hydroureteronephrosis Extensive bilateral nephrolithiasis Multiple bilateral renal cysts Small sliding hiatal hernia Status post hysterectomy Reviewed, dictated and finalized at Location A. Reviewed, dictated and finalized at location B. IMPRESSION: Obstructing approximately 4.5 mm distal right ureteral calculus wi th moderately prominent right hydroureteronephrosis Extensive bilateral nephrolithiasis Multiple bilateral renal cysts Small sliding hiatal hernia Status post hysterectomy
--- NOTE | ~2023-07-14 | XR_ITS ---
EXAMINATION: XR retrograde pyelo w/stent RT DATE: 07/15/2023 10:38 INDICATION: Right ureteral stone. TECHNIQUE: 6 intraoperative fluoroscopic views of the abdomen and pelvis were obtained. I was not pre sent. Fluoroscopy exposure time was 7 seconds. COMPARISON: CT abdomen and pelvis 07/14/2023 FINDINGS: The right-sided retrograde pyelogram demonstrates mild hydronephrosis. The final images dem onstrate a right internal ureteral stent in expected position. IMPRESSION: 1. Mild right hydronephrosis. Right internal ureteral stent in expected position. Reviewed, dictated and finalized at location A. IMPRESSION: 1. Mild right hydronephrosis. Right internal ureteral stent in expected positio n.
--- NOTE | ~2023-07-14 | CT_ITS ---
EXAMINATION: CT abdomen pelvis wo con DATE: 07/16/2023 15:52 INDICATION: Bilateral kidney stones. TECHNIQUE: Computed tomography (CT) of the abdomen and pelvis was performed without intravenous contr ast. Automated exposure control and iterative reconstruction technique were employed. The dose-length product was 1248.38 mGy-cm. COMPARISON: CT abdomen pelvis 07/14/2023 FINDINGS: The visualized portions of the lung bases demonstrate mild atelectasis. No pleural effusion . The heart size is normal. No pericardial effusion. There is a small sliding hiatal hernia. The live r is normal. The gallbladder is contracted. Calcifications in the spleen are consistent with old gran ulomatous disease. The pancreas and adrenal glands are normal. There is cortical thinning of the kidn eys. There are cysts in the kidneys measuring up to 19 mm on the left. There are greater than 10 ston es in right kidney measuring up to 5 mm. There is a right internal ureteral stent in expected positio n. There are greater than 10 stones in left kidney measuring up to 5 mm. There are no dilated loops o f bowel. The appendix is normal. Aortic atherosclerosis is noted. There are no pathologically enlarge d lymph nodes. There is no free intraperitoneal fluid. There is mild thoracic and lumbar spondylosis. IMPRESSION: 1. Bilateral nonobstructing kidney stones. 2. Right internal ureteral stent in expected position. Reviewed, dictated and finalized at location A.
--- NOTE | 2023-07-14 14:29 | PC.NURSE ---
Attempt was made to get IV access, patient unable to sit still and access was lost. patient educated on need to try to hold still as much as possible for iv placement and lab draw but stated I can't still still
[2023-07-14] MEDS: ONDANSETRON INJ 4 MG/2 ML VIAL IV PUSH (15:00)
[2023-07-14 15:03] LABS: Basophils Percent Auto 0.4 % (0.2-1.2); Eosinophils Absolute Auto 0.2 K/mm3 (0-0.3); Eosinophils Percent Auto 2.2 % (0-4.4); Hematocrit 43.3 % (37.0-47.0); Hemoglobin 14.5 g/dL (12.0-15.0); Immature Granulocyte Absolute 0.01 K/mm3 (0.00-0.031); Immature Granulocyte Percent A 0.1 % (0-0.5); Lymphocytes Absolute Auto 2.32 K/mm3 (0.9-3.2); Lymphocytes Percent Auto 32.3 % (18.3-44.2); Mean Corpuscular HGB Conc 33.5 g/dl (32-36); Mean Corpuscular Hemoglobin 28.5 pg (26-34); Mean Corpuscular Volume 85.1 fl (80-100); Mean Platelet Volume 11.5 fl (7.4-10.4); Monocytes Absolute Auto 0.7 K/mm3 (0.1-0.6); Monocytes Percent Auto 9.1 % (2.6-8.5); Neutrophils Percent Auto 55.9 % (45.5-73.1); Platelet Count Result 219 k/mm3 (150-375); Red Blood Count 5.09 M/mm3 (4.2-5.4); Red Cell Distribution Width 12.3 % (11.5-14.5); White Blood Count 7.2 K/mm3 (4.5-10.0)
[2023-07-14 15:12] LABS: Alanine Aminotransferase 22 U/L (6-35); Albumin Level 4.5 g/dL (3.5-5.1); Alkaline Phosphatase 52 U/L (38-126); Anion Gap 8 mmol/L (4-12); Aspartate Amino Transferase 20 U/L (14-36); Bilirubin,Total 0.8 mg/dL (0.2-1.3); Blood Urea Nitrogen 19 mg/dL (7-17); Calcium 9.5 mg/dL (8.4-10.2); Carbon Dioxide 22 mmol/L (22-30); Chloride 110 mmol/L (98-107); Estimated CRCL calculation 71 ml/min; Estimated Glomerular Filt Rate 49; Glucose 104 mg/dL (65-110); Lipase 1493 U/L (23-300); Potassium 3.5 mmol/L (3.4-5.0); Sodium 140 mmol/L (137-145)
[2023-07-14] MEDS: MORPHINE SULFATE (*CRX) 4 MG/ML INJ IV PUSH (15:18)
[2023-07-14] MEDS: HYDROmorphone HCL INJ (*CRX) 1 MG/ML SYR 0.5 MG IV PUSH ×2 (15:24→20:10)
[2023-07-14] MEDS: PROCHLORPERAZINE EDISYLATE 10 MG/2 ML VIAL 5 MG IV PUSH ×2 (15:25→17:03)
[2023-07-14] MEDS: HYDROmorphone HCL INJ (*CRX) 1 MG/ML SYR IV PUSH (17:03)
[2023-07-14] MEDS: SODIUM CHLORIDE 0.9% IV 1,000 ML 150 ML IV CONT (17:21)
--- NOTE | 2023-07-14 17:29 | ED.ABDPAIN ---
HPI - Abdominal Pain General Chief Complaint: Abdominal Pain Stated Complaint: abdominal pain Time Seen by Provider: 07/14/23 14:55 Source: patient Mode of arrival: ambulatory Limitations: no limitations History of Present Illness MD elicited complaint: abdominal pain and flank pain Pertinent past history: kidney stones Onset (ago): day(s) (3) Pain Consistency: constant Location: RUQ and R flank Severity: moderate Quality: aching and sharp Radiation: RUQ Migration to: R flank Exacerbating factors: nothing Relieving factors: nothing Associated symptoms: nausea and vomiting Related Data Allergies Allergy/AdvReac Type Severity Reaction Status Date / Time Penicillins Allergy Unknown UNKNOWN Verified 07/14/23 13:58 morphine AdvReac Mild Itching Verified 07/14/23 13:58 Review of Systems Review of Systems: All systems reviewed & are unremarkable except as noted in HPI and below Constitutional: Constitutional: Reports no additional constitutional complaints Eyes: Eyes: Reports no additional eye complaints ENT: Reports system reviewed and no additional complaints, except as documented Cardiovascular: Cardiovascular: Reports no additional cardiovascular complaints Respiratory: Respiratory: Reports no additional respiratory complaints Gastrointestinal: Gastrointestinal: Reports as per HPI Genitourinary: Genitourinary: Reports as per HPI Musculoskeletal: Musculoskeletal: Reports no additional musculoskeletal complaints Integumentary/Breasts: Skin/Breast: Reports system reviewed and no additional complaints, except as docu Neurologic: Reports system reviewed and no additional complaints, except as documented Psychiatric: Psychiatric: Reports no additional psychiatric complaints [facility] Past Medical History Medical History Chondromalacia of both patellae Endometriosis Kidney stones Vaping nicotine dependence, non-tobacco product Surgical History Surgical History History of laparoscopy endometriosis History of left oophorectomy (03/2020) Ovarian cyst History of right salpingo-oophorectomy (2003) Ovarian cyst History of vaginal hysterectomy (2011) Family History Family History Mother Hypertension Cerebrovascular accident, Onset Age: 58 Father Hypertension Social History Social History (Reviewed 08/02/22 @ 14:50 by Jazmine Howard [facility]) Social History: She and her have been together for 23 years but just got in 2019. They have a 23-year-old daughter and a 16-year-old son. She works at [employer]. She has smoked up to a pack of cigarettes per day and started smoking a 15. She denies any significant alcohol use. She does smoke weed on occasion. Code status: Full code Surrogate decision maker: Smoking packs per day: 1 Smoking cigarettes per day: 20.0 Years smoked: 15 Smoking pack-years: 15.00 Smoking status: Current every day smoker Tobacco type: e-cigarettes/vaping Additional smoking assessment comments: fills little pod once every two days Alcohol intake: never Substance use: current Substance use type: marijuana Lack of Transportation: No Lack of Food: Never True Current Housing: I Have Housing Concerned About Future Housing: No Difficulty Paying Gas/Electric Bills: No Difficulty Paying for Meds: No Currently Unemployed: No Education: High School Diploma/GED Difficulty w/ Childcare or Family Care: No Living arrangements: with family Additional living arrangements comments: She has 2 children Occupation/Education: occupation Gender identity (if verbalized by the patient): Female Sexual Orientation (if Verbalized by the Patient): Straight or Heterosexual Spiritual care concerns: No Exam Narrative: GENERAL: Well-appearing, well-nourished, and in mode
[2023-07-14] MEDS: KETOROLAC 15 MG/ML VIAL (*BKC) IV PUSH (17:44)
[2023-07-14 18:36] LABS: Appearance Urine Turbid (Clear); Bacteria Urine 4+ /hpf; Bilirubin Urine Negative (Negative); Blood Urine 3+ (Negative); Color Urine Yellow (Yellow); Glucose Urine UA Negative (Negative); Ketones Urine Trace mg/dL (Negative); Leukocyte Esterase Ur 2+ LEU/UL (Negative); Need Manual Microscopic Reviewed; Nitrate Urine Positive (Negative); Non Pathogenic Casts 0-2; Protein Urine 1+ mg/dL (Negative); RBC Urine 51-100 /hpf (0-2); Specific Grav Ur 1.016 (1.001-1.035); Squamous Epithelial Cell Urine Moderate /hpf (Few); WBC Clumps Urine Present /HPF; WBC Urine >100 /hpf (0-3); pH Urine 6.5 (5.0-9.0)
[2023-07-14 18:37] LABS: Add Urine Microscopic? YES
--- NOTE | 2023-07-14 19:32 | PM.IMHP ---
H&P: HPI History of Present Illness Date/Time: 07/14/23 20:15 Chief Complaint: Back and abdominal pain. Narrative: This is a very pleasant 42-year-old female with history of the stones and urinary tract infections who presented to the emergency department for evaluation of back and abdominal pain. The patient provides the following history. Two days ago she developed pain in the mid to right lower back which has since started to radiate into the right flank. The pain is colicky in nature and she describes intermittent sharp and shooting pain. Associated symptoms include sweats, chills, nausea, vomiting, and urinary frequency. The symptoms are all similar to though she has experienced with previous kidney stones. She has not had a fever to her knowledge and denies dysuria and hematuria. In the ED: She was afebrile on arrival with stable vital signs. Labs were significant for a WBC count of 17.2, hemoglobin 14.5, BUN 19, creatinine 1.20, lipase 1493. Urine was positive for 1+ protein, 3+ blood, positive nitrates, 2+ leukocyte esterase, 51 to 100 RBC, greater than 100 WBC, and 4+ bacteria. CT of the abdomen and pelvis showed an obstructing approximately 4.5 mm distal right ureteral calculus with moderately prominent right hydroureteronephrosis and extensive bilateral nephrolithiasis. She was given antiemetics and analgesics as well as 1 g ceftriaxone and she is being admitted for supportive care and urology consult. Review of Systems Review of Systems: 12 systems were reviewed and are negative except for as per HPI. [facility] Past Medical History Medical History Chondromalacia of both patellae Endometriosis Kidney stones Vaping nicotine dependence, non-tobacco product Surgical History Surgical History History of laparoscopy endometriosis History of left oophorectomy (03/2020) Ovarian cyst History of right salpingo-oophorectomy (2003) Ovarian cyst History of vaginal hysterectomy (2011) Family History Family History Mother Hypertension Cerebrovascular accident, Onset Age: 58 Father Hypertension Other Small cell carcinoma Social History Social History (Updated 07/14/23 @ 22:58 by Yumiko Burris PA-C) Social History: Surrogate medical decision maker: Jai Rice, spouse. Code status: Full code. Smoking packs per day: 1 Smoking cigarettes per day: 20.0 Years smoked: 15 Smoking pack-years: 15.00 Smoking status: Current every day smoker Additional smoking assessment comments: fills little pod once every two days Alcohol intake: former Substance use: current Substance use type: does not use Do You Feel Safe in your Home?: Yes Lack of Transportation: No Lack of Food: Never True Current Housing: I Have Housing Concerned About Future Housing: No Difficulty Paying Gas/Electric Bills: No Difficulty Paying for Meds: No Currently Unemployed: No Education: Trade/Vocational Certificate Difficulty w/ Childcare or Family Care: No Living arrangements: with family Additional living arrangements comments: Lives with spouse. They have 2 children. Occupation/Education: occupation Spiritual care concerns: No Meds Home Medications and Allergies Home Medications Medication Instructions Recorded Confirmed Type semaglutide (weight loss) 0.5 0.4 mg subcut WEEKLY 07/14/23 07/14/23 History mg/0.5 mL subcutaneous pen injector Allergies Allergy/AdvReac Type Severity Reaction Status Date / Time Penicillins Allergy Unknown UNKNOWN Verified 07/14/23 20:29 morphine AdvReac Mild Itching Verified 07/14/23 20:29 Vital Signs Vital Signs - 24 hr 07/14/23 14:01 07/14/23 14:08 07/14/23 14:09 Temperature 97.4 F L 97.4 F L Pulse Rate 89 77 83 Respiratory Rate 16 16 18 Blood Pressure 139/
--- NOTE | 2023-07-14 20:01 | ADMGEN ---
This patient, Linnette Rice, was admitted to [facility] Room 302-01. Patient/family oriented to hospital policies and general routines including ID bracelet, bed and alarms, visiting hours, pain management, procedures, bathroom and other care routines, personal items, smoking policy, room service/diet, and visiting hours. Information on how to activate the Rapid Response Team has been discussed. Patient/Family are encouraged to report perceived risks to care and to ask questions if they do not understand what they are told or what they should do.
[2023-07-14] MEDS: SODIUM CHLORIDE 0.9% IV 1,000 ML 125 ML IV CONT (20:09)
[2023-07-14] MEDS: PROMETHAZINE HCL 25 MG/ML AMPUL 12.5 MG IV PUSH (20:52)
[2023-07-15] VITALS (11 sets, daily range): BP systolic 103–142; BP diastolic 64–93; PULSE 74–96; RESP 14–20; TEMP 36.3–37.3; O2SAT 95–100
[2023-07-15] MEDS: HYDROmorphone HCL INJ (*CRX) 1 MG/ML SYR 0.5 MG IV PUSH (04:13)
[2023-07-15] MEDS: ONDANSETRON INJ 4 MG/2 ML VIAL IV PUSH ×2 (04:14→12:25)
[2023-07-15 06:40] LABS: Basophils Percent Auto 0.3 % (0.2-1.2); Eosinophils Absolute Auto 0.1 K/mm3 (0-0.3); Eosinophils Percent Auto 0.8 % (0-4.4); Hematocrit 44.3 % (37.0-47.0); Hemoglobin 13.9 g/dL (12.0-15.0); Immature Granulocyte Absolute 0.02 K/mm3 (0.00-0.031); Immature Granulocyte Percent A 0.3 % (0-0.5); Lymphocytes Absolute Auto 1.52 K/mm3 (0.9-3.2); Lymphocytes Percent Auto 19.2 % (18.3-44.2); Mean Corpuscular HGB Conc 31.4 g/dl (32-36); Mean Corpuscular Volume 89.3 fl (80-100); Mean Platelet Volume 11.7 fl (7.4-10.4); Monocytes Absolute Auto 0.6 K/mm3 (0.1-0.6); Monocytes Percent Auto 7.7 % (2.6-8.5); Neutrophils Absolute Auto 5.7 K/mm3 (1.3-6.7); Neutrophils Percent Auto 71.7 % (45.5-73.1); Platelet Count Result 192 k/mm3 (150-375); Red Blood Count 4.96 M/mm3 (4.2-5.4); Red Cell Distribution Width 12.2 % (11.5-14.5); White Blood Count 7.9 K/mm3 (4.5-10.0)
[2023-07-15 06:53] LABS: Alanine Aminotransferase 21 U/L (6-35); Albumin Level 4.3 g/dL (3.5-5.1); Alkaline Phosphatase 49 U/L (38-126); Anion Gap 6 mmol/L (4-12); Aspartate Amino Transferase 20 U/L (14-36); Bilirubin,Total 1.1 mg/dL (0.2-1.3); Blood Urea Nitrogen 17 mg/dL (7-17); Calcium 9.3 mg/dL (8.4-10.2); Carbon Dioxide 28 mmol/L (22-30); Chloride 108 mmol/L (98-107); Estimated CRCL calculation 77 ml/min; Estimated Glomerular Filt Rate 54; Glucose 91 mg/dL (65-110); Lipase 113 U/L (23-300); Potassium 3.2 mmol/L (3.4-5.0); Sodium 142 mmol/L (137-145)
--- NOTE | 2023-07-15 07:52 | PM.IMPN ---
Progress Note: A&P Assessment and Plan (1) Right ureteral calculus: Code(s): N20.1 - Calculus of ureter Status: Acute Assessment and Plan: CT scan shows obstructing 4.5 mm right ureteral stone with moderately predominant right hydroureteronephrosis and innumerable bilateral kidney stones. NPO for stent Urology consult Tylenol, Dilaudid for pain IVF at 125 ml per hour... DC IV fluids once patient is tolerating a regular diet Zofran for nausea Strain urine Check uric acid Calcium normal 07/14: Operative note says urology will want a KUB or CT scan the next ?day or 2? to assess for stone. (2) Urinary tract infection: Code(s): N39.0 - Urinary tract infection, site not specified Status: Acute Assessment and Plan: U/A concerning for UTI Started on Rocephin 1 gram urine culture pending (3) Acute kidney injury: Code(s): N17.9 - Acute kidney failure, unspecified Status: Acute Assessment and Plan: SHARON from obstruction and dehydration Cr 1.20 on admission. Now 1.10 after IVF K+ 3.2 mEq (4) Hydroureteronephrosis: Code(s): N13.30 - Unspecified hydronephrosis Status: Acute Assessment and Plan: see above (5) Bilateral nephrolithiasis: Code(s): N20.0 - Calculus of kidney Status: Acute Assessment and Plan: see above (6) Dehydration: Code(s): E86.0 - Dehydration Status: Acute Assessment and Plan: IVF at 125 ml per hour (7) Elevated lipase: Code(s): R74.8 - Abnormal levels of other serum enzymes Status: Acute Assessment and Plan: Lipase 1493 on admission without c/o of abdominal pain. CT without findings of pancreatitis. suspect elevation from semaglutide and dehydration IVF overnight and lipase is now 113 Plan Feeding: NPO for now Analgesia: Tylenol, Dilaudid Thromboembolic prophylaxis: SCD Antibiotics: Rocephin Disposition: Home when medically ready Subjective Date/time seen: 07/15/23 07:52 Interval history: This is a very pleasant 42-year-old female with history of the stones and urinary tract infections who presented to the emergency department for evaluation of back and abdominal pain. 07/14: Patient is seen after her cystoscopy. She states her pain is improved but she is having some discomfort from her stent. She is still nauseous as well. She wanted to mention that she has a history of endometriosis and follows with the supervisor mending who had mentioned they thought she may have interstitial cystitis as she has been treated for frequent urinary tract infections with negative cultures. I encouraged her to discuss this IC with Urology. Review of Systems Review of Systems: 12 systems were reviewed and are negative except for as per HPI. All systems reviewed & are unremarkable except as noted in HPI and below Exam Narrative: General: well appearing, appears stated age. HEENT: normocephalic, atraumatic. Mucous membranes moist. EOMI, PERRLA, bilateral sclera anicteric, no conjunctival injection. Neck supple without JVD, lymphadenopathy, or bruit. Respiratory: clear to auscultation bilaterally. No rales/rhonic/wheezes. Cardiovascular: Regular rate and rhythm, normal S1-S2 upon auscultation. No murmurs, rubs, or clicks. PMI is nondisplaced, capillary refill less than 3 second. Abdomen: Soft, round, no pulsatile masses, nondistended and right flank tenderness No rebound, no guarding. No CVA tenderness, no hepatosplenomegaly. Bowel sounds present to all four quadrants. No high pitch or tinkling sounds, resonant to percussion. Extremities: No cyanosis, clubbing, or edema present. Pulses are palpable 2/2. Active ROM to all four extremities. Neuro: Alert and orientated x 4. PERRLA. Cranial nerves 2-12 intact without focal deficit. Skin: Warm, dry, and intact, without rash, erythema, or lesion. Lines: Incisions: Psych: pleasant, cooperative, normal speech
--- NOTE | 2023-07-15 08:20 | WPDURCON ---
Assessment and Plan Assessment and plan (1) Right ureteral calculus: Code(s): N20.1 - Calculus of ureter Status: Acute Assessment and Plan: Proceed with cystoscopy, right retrograde pyelogram right stent placement possible ureteroscopy with stone extraction. She is aware that if there is purulence noted that simply a stent will be placed (2) UTI (urinary tract infection): Qualifiers: Hematuria presence: without hematuria Urinary tract infection type: site unspecified Qualified Code(s): N39.0 - Urinary tract infection, site not specified Code(s): N39.0 - Urinary tract infection, site not specified Status: Acute Assessment and Plan: cultures pending in on antibiotics Urology Consult Note HPI Date Seen: 07/15/23 Time Seen: 08:20 Requesting Physician: Trev Gary MD Primary Care Provider: Ayan Tan MD Consult Narrative Reason for consult: Obstructing distal right ureteral calculus with hydronephrosis and UTI Narrative: Linnette Rice is a 42 year old female with history of kidney stones presented in the emergency room with right flank pain. Evaluation emergency room revealed a 4.5 mm distal right ureteral calculus with hydronephrosis. Her urinalysis also had bacteria present. She although she is afebrile here she states that she may have had a temperature at home. Denies dysuria at this time. White count is normal at approximately 7000. She was admitted for pain control and antibiotics. Review of Systems Review of Systems: All systems reviewed & are unremarkable except as noted in HPI and below PMFSH Past Medical History Medical History Chondromalacia of both patellae Endometriosis Kidney stones Vaping nicotine dependence, non-tobacco product Surgical History Surgical History History of laparoscopy endometriosis History of left oophorectomy (03/2020) Ovarian cyst History of right salpingo-oophorectomy (2003) Ovarian cyst History of vaginal hysterectomy (2011) Family History Family History Mother Hypertension Cerebrovascular accident, Onset Age: 58 Father Hypertension Other Small cell carcinoma Social History Social History Social History: Surrogate medical decision maker: Jai Rice, spouse. Code status: Full code. Smoking packs per day: 1 Smoking cigarettes per day: 20.0 Years smoked: 15 Smoking pack-years: 15.00 Smoking status: Current every day smoker Additional smoking assessment comments: fills little pod once every two days Alcohol intake: former Substance use: current Substance use type: does not use Do You Feel Safe in your Home?: Yes Lack of Transportation: No Lack of Food: Never True Current Housing: I Have Housing Concerned About Future Housing: No Difficulty Paying Gas/Electric Bills: No Difficulty Paying for Meds: No Currently Unemployed: No Education: Trade/Vocational Certificate Difficulty w/ Childcare or Family Care: No Living arrangements: with family Additional living arrangements comments: Lives with spouse. They have 2 children. Occupation/Education: occupation Spiritual care concerns: No Meds Home Medications and Allergies Home Medications Medication Instructions Recorded Confirmed Type semaglutide (weight loss) 0.5 0.4 mg subcut WEEKLY 07/14/23 07/14/23 History mg/0.5 mL subcutaneous pen injector Allergies Allergy/AdvReac Type Severity Reaction Status Date / Time Penicillins Allergy Unknown UNKNOWN Verified 07/14/23 20:29 morphine AdvReac Mild Itching Verified 07/14/23 20:29 Vital Signs Vital Signs - 24 hr 07/14/23 14:01 07/14/23 14:08 07/14/23 14:09 Temperature
[2023-07-15] MEDS: POTASSIUM CHLORIDE 20 MEQ ER TABLET 40 MEQ PO (08:42)
[2023-07-15] MEDS: LACTATED RINGERS 1,000 ML 30 ML IV CONT (09:30)
--- NOTE | 2023-07-15 09:58 | WPDANESEPPF ---
Anes - Initial Pre Proc Eval Procedure: Operation Date: 07/15/23 11:15 Proposed Procedures p Cystoscopy, Right Ureteroscopy, Possible Right Retrograde Pyelogram, Possible Right Stone Extraction, Possible Right Stent Placement, Possible Holmium Laser - Gregory Lino MD Date/Time: 07/15/23 09:58 Surgeon: Trev Gary MD Pre Op Diagnosis: Ureterolithisis Patient Data Age: 42 Gender: F Height: 1.78 m Weight: 105.3 kg Last Vital Signs Temp 97.8 F 07/15/23 05:23 Pulse 85 07/15/23 05:23 Resp 18 07/15/23 05:23 BP 142/93 H 07/15/23 05:23 Pulse Ox 98 07/15/23 05:23 O2 Del Method Room Air 07/14/23 20:00 Allergies Allergy/AdvReac Type Severity Reaction Status Date / Time Penicillins Allergy Unknown UNKNOWN Verified 07/14/23 20:29 morphine AdvReac Mild Itching Verified 07/14/23 20:29 Home Medications Medication Instructions Recorded Confirmed Type semaglutide (weight loss) 0.5 0.4 mg subcut WEEKLY 07/14/23 07/14/23 History mg/0.5 mL subcutaneous pen injector Laboratory Tests 07/14/23 07/14/23 07/15/23 14:55 17:51 05:35 WBC 7.2 K/mm3 7.9 K/mm3 (4.5-10.0) (4.5-10.0) RBC 5.09 M/mm3 4.96 M/mm3 (4.2-5.4) (4.2-5.4) Hgb 14.5 D g/dL 13.9 g/dL (12.0-15.0) (12.0-15.0) Hct 43.3 % 44.3 % (37.0-47.0) (37.0-47.0) MCV 85.1 fl 89.3 fl (80-100) (80-100) MCH 28.5 pg 28.0 pg (26-34) (26-34) MCHC 33.5 g/dl 31.4 L g/dl (32-36) (32-36) RDW 12.3 % 12.2 % (11.5-14.5) (11.5-14.5) Plt Count 219 k/mm3 192 k/mm3 (150-375) (150-375) MPV 11.5 H fl 11.7 H fl (7.4-10.4) (7.4-10.4) Immature Gran % (Auto) 0.1 % 0.3 % (0-0.5) (0-0.5) Neut % (Auto) 55.9 % 71.7 % (45.5-73.1) (45.5-73.1) Lymph % (Auto) 32.3 % 19.2 % (18.3-44.2) (18.3-44.2) [place] % (Auto) 9.1 H % 7.7 % (2.6-8.5) (2.6-8.5) Eos % (Auto) 2.2 % 0.8 % (0-4.4) (0-4.4) Baso % (Auto) 0.4 % 0.3 % (0.2-1.2) (0.2-1.2) Lymph # (Auto) 2.32 K/mm3 1.52 K/mm3 (0.9-3.2) (0.9-3.2) [place] # (Auto) 0.7 H K/mm3 0.6 K/mm3 (0.1-0.6) (0.1-0.6) Eos # (Auto) 0.2 K/mm3 0.1 K/mm3 (0-0.3) (0-0.3) Baso # (Auto) 0.0 K/mm3 0.0 K/mm3 (0.0-0.1) (0.0-0.1) Abs Immat Gran (auto) 0.01 K/mm3 0.02 K/mm3 (0.00-0.031) (0.00-0.031) Absolute Neuts (auto) 4.0 K/mm3 5.7 K/mm3 (1.3-6.7) (1.3-6.7) Absolute Nucleated RBC 0.000 K/mm3 0.000 K/mm3 (0.0-0.012) (0.0-0.012) Nucleated RBC % 0.0 % 0.0 % (0.0-0.2) (0.0-0.2) Sodium 140 mmol/L 142 mmol/L (137-145) (137-145) Potassium 3.5 mmol/L 3.2 L mmol/L (3.4-5.0) (3.4-5.0) Chloride 110 H mmol/L 108 H mmol/L (98-107) (98-107) Carbon Dioxide 22 mmol/L 28 mmol/L (22-30) (22-30) Anion Gap 8 mmol/L 6 mmol/L (4-12) (4-12) BUN 19 H D mg/dL 17 mg/dL (7-17) (7-17) Creatinine 1.20 H mg/dL 1.10 H mg/dL (0.7-1.0) (0.7-1.0) Estim Creat Clear Calc 71 ml/min 77 ml/min Estimated GFR 49 L 54 L (59 - ) (59 - ) Glucose 104 mg/dL 91 mg/dL (65-110) (65-110) Calcium 9.5 mg/dL 9.3 mg/dL (8.4-10.2) (8.4-10.2) Magnesium 2.0 mg/dL (1.6-2.3) Total Bilirubin 0.8 mg/dL 1.1 mg/dL (0.2-1.3) (0.2-1.3) Direct Bilirubin 0.0 mg/dL (0-0.3) AST 20 U/L 20 U/L (14-36) (14-36) ALT 22 U/L 21 U/L (6-35) (6-35) Alkaline Phosphatase 52 U/L 49 U/L (38-126) (38-126) Total Protein 7.0 g/dL 7.0 g/dL (6.3-8.2) (6.3-8.2) Albumin 4.5 g/dL 4.3 g/dL (3.5-5.1) (3.5-5.1) Lipase 1493 H U/L 113 U/L (23-300) (23-300) Urine Color Yellow (Yellow) Urine Appearance Turbid H (Clear) Urine pH 6.5 (5.0-9.0) Ur Specific [place] 1.016 (1.001-1.035) Urine Pr
--- NOTE | 2023-07-15 10:01 | WPDHPUPDATE1 ---
History and Physical Update Update Date/Time: 07/15/23 10:01 History and Physical has been reviewed, including an updated exam of the patient. There are NO changes in the patient's condition. Risks, benefits, and alternatives have been discussed and questions answered. Patient agrees to proceed with procedure. Proceed with cystoscopy, right retrograde, right stent , possible ureteroscopy
[2023-07-15] MEDS: LIDOCAINE HCL 2% GEL UROJET 10 ML PKG MUCOUS MEM (10:28)
--- NOTE | 2023-07-15 10:36 | W.PM.PROC2 ---
Procedure Note - Detailed Date of Procedure 07/15/23 Pre-op Diagnosis Right ureteral calculus Post-op Diagnosis Other (Recent passage of stone) Procedure Performed Cystoscopy, right retrograde, right ureteroscopy, right ureteral stent placement 4.8 Serbian contour Surgeon Gregory Lino MD Anesthesia General Description of Procedure Patient was taken to the operative suite correctly identified. Once anesthesia was obtained she was placed in dorsal lithotomy position and prepped and draped usual sterile fashion. Twenty-two Serbian scope was inserted the bladder. There were no tumors noted. The right ureteral orifice was cannulated with a guidewire. No purulence was noted. Gently dilated the orifice with an 8/10 dilator. Rigid ureteral scope was then inserted into the distal ureter. No stone visualized nor in the mid ureter or proximal ureter. At this point time a pyelogram was performed confirm placement of the stent. 4.8 Serbian contour stent was placed with the proximal pelvis and the distal in the bladder. Bladder was drained. 2% viscous lidocaine was inserted into the urethra patient is taken recovery stable condition. Plan to repeat a CT scan with KUB in the next day or 2. If no stone visualized in the ureter will plan on stent removal in the office. Patient has bilateral renal stones those will need to be addressed. She also need a metabolic workup. This completes dictation. Please send a copy of op note to my office. Estimated Blood Loss 0 Drains Yes Packing No Pathology None sent Complications No immediate complications Condition Stable Disposition PACU
[2023-07-15] MEDS: KETOROLAC 30 MG/ML VIAL (*BKC) IV PUSH (17:31)
[2023-07-15] MEDS: SODIUM CHLORIDE 0.9% IV 1,000 ML 125 ML IV CONT (17:31)
[2023-07-15 18:21] LABS: Uric Acid 4.5 mg/dL (2.5-7.5)
[2023-07-16 05:40] VITALS: BP 115/63; PULSE 74; RESP 18; TEMP 37.2; O2SAT 97
[2023-07-16 06:05] LABS: Basophils Percent Auto 0.1 % (0.2-1.2); Hematocrit 40.2 % (37.0-47.0); Hemoglobin 12.9 g/dL (12.0-15.0); Immature Granulocyte Absolute 0.02 K/mm3 (0.00-0.031); Immature Granulocyte Percent A 0.2 % (0-0.5); Lymphocytes Absolute Auto 1.21 K/mm3 (0.9-3.2); Lymphocytes Percent Auto 14.5 % (18.3-44.2); Mean Corpuscular HGB Conc 32.1 g/dl (32-36); Mean Corpuscular Hemoglobin 28.5 pg (26-34); Mean Corpuscular Volume 88.7 fl (80-100); Mean Platelet Volume 11.8 fl (7.4-10.4); Monocytes Absolute Auto 0.6 K/mm3 (0.1-0.6); Neutrophils Absolute Auto 6.5 K/mm3 (1.3-6.7); Neutrophils Percent Auto 78.2 % (45.5-73.1); Platelet Count Result 173 k/mm3 (150-375); Red Blood Count 4.53 M/mm3 (4.2-5.4); Red Cell Distribution Width 12.1 % (11.5-14.5); White Blood Count 8.3 K/mm3 (4.5-10.0)
[2023-07-16 06:15] LABS: Alanine Aminotransferase 16 U/L (6-35); Albumin Level 3.8 g/dL (3.5-5.1); Alkaline Phosphatase 45 U/L (38-126); Anion Gap 7 mmol/L (4-12); Aspartate Amino Transferase 17 U/L (14-36); Blood Urea Nitrogen 15 mg/dL (7-17); Calcium 8.8 mg/dL (8.4-10.2); Carbon Dioxide 23 mmol/L (22-30); Chloride 110 mmol/L (98-107); Estimated CRCL calculation 84 ml/min; Estimated Glomerular Filt Rate > 60; Glucose 94 mg/dL (65-110); Magnesium 1.9 mg/dL (1.6-2.3); Potassium 3.5 mmol/L (3.4-5.0); Sodium 140 mmol/L (137-145)
--- NOTE | 2023-07-16 08:43 | WPDANESPN ---
Anes - Prog Note Post-Op Date/Time: 07/16/23 08:43 Vital Signs: Last Vital Signs Temp 37.2 C 07/16/23 05:40 Pulse 74 07/16/23 05:40 Resp 18 07/16/23 05:40 BP 115/63 07/16/23 05:40 Pulse Ox 97 07/16/23 05:40 O2 Del Method Room Air 07/15/23 20:00 O2 Flow Rate 10 07/15/23 10:45 Pain Score (VAS): 2 - only uncomfortable when voiding I/O: Intake & Output 07/15/23 07/16/23 07/16/23 23:59 07:59 15:59 Intake Total 690 1100 Output Total 200 600 Balance 490 500 Laboratory Tests 07/16/23 05:14 07/16/23 05:14 07/15/23 07/16/23 18:02 05:14 WBC 8.3 RBC 4.53 Hgb 12.9 Hct 40.2 MCV 88.7 MCH 28.5 MCHC 32.1 RDW 12.1 Plt Count 173 MPV 11.8 H Immature Gran % (Auto) 0.2 Neut % (Auto) 78.2 H Lymph % (Auto) 14.5 L [place] % (Auto) 7.0 Eos % (Auto) 0.0 Baso % (Auto) 0.1 L Lymph # (Auto) 1.21 [place] # (Auto) 0.6 Eos # (Auto) 0.0 Baso # (Auto) 0.0 Abs Immat Gran (auto) 0.02 Absolute Neuts (auto) 6.5 Absolute Nucleated RBC 0.000 Nucleated RBC % 0.0 Sodium 140 Potassium 3.5 Chloride 110 H Carbon Dioxide 23 Anion Gap 7 BUN 15 Creatinine 1.00 Estim Creat Clear Calc 84 Estimated GFR > 60 Glucose 94 Uric Acid 4.5 Calcium 8.8 Magnesium 1.9 Total Bilirubin 1.0 AST 17 ALT 16 Alkaline Phosphatase 45 Total Protein 6.0 L Albumin 3.8 Microbiology 07/14/23 17:51 Unspecified Urine Urine Culture - Final Escherichia Coli Post-procedural complaints: none Patient Feedback: Patient satisfied with anesthetic care.
--- NOTE | 2023-07-16 09:12 | WPDUROPN2 ---
Progress Note: A&P Assessment and Plan (1) Right ureteral calculus: Code(s): N20.1 - Calculus of ureter Status: Acute Assessment and Plan: Underwent cystoscopy right retrograde pyelogram, right ureteroscopy, right ureteral stent placement on 07/15/[address] Lino. Tolerated procedure well. Will plan for CT and KUB for stone evaluation. If no stone visualized in the ureter will plan on stent removal as an outpatient. (2) UTI (urinary tract infection): Qualifiers: Hematuria presence: without hematuria Urinary tract infection type: site unspecified Qualified Code(s): N39.0 - Urinary tract infection, site not specified Code(s): N39.0 - Urinary tract infection, site not specified Status: Acute Assessment and Plan: Urine culture with growth of E coli sensitive to ceftriaxone. (3) Bilateral nephrolithiasis: Code(s): N20.0 - Calculus of kidney Status: Acute Assessment and Plan: Significant bilateral nephrolithiasis. Will need outpatient management of stones as well as metabolic evaluation. Subjective Subjective Date/Time Seen: 07/16/23 09:12 Interval history: Linnette is doing well today. She tolerated her procedure well yesterday and pain has been well controlled. She denies nausea, vomiting, fever, chills. She is tolerating her diet. Reports mild stent discomfort and soreness of the right flank. Denies dysuria or hematuria. States urine appears dark in color. Review of Systems Review of Systems: All systems reviewed & are unremarkable except as noted in HPI and below Exam Narrative: General: Awake, alert, comfortable, no acute distress HEENT: Normocephalic, atraumatic, sclerae anicteric Respiratory: Normal respiratory effort, no accessory muscle use Abdomen: Nondistended, soft, nontender Skin: Normal coloration, warm and dry Neurologic: No focal neuro deficits noted Psychiatric: Appropriate mood and affect, judgment and insight intact Objective Data Vital Signs Vital Signs: Vital Signs - 24 hr 07/15/23 09:56 07/15/23 10:40 07/15/23 10:55 Temperature 99.1 F 97.4 F L Pulse Rate 74 96 92 Respiratory Rate 14 20 18 Blood Pressure 107/64 103/76 117/79 Pulse Oximetry 100 97 96 Oxygen Delivery Room Air Simple Face Mask Room Air Oxygen Flow Rate 10 07/15/23 10:45 07/15/23 11:10 07/15/23 11:25 Temperature Pulse Rate 92 77 Respiratory Rate 18 15 Blood Pressure 118/89 117/83 Pulse Oximetry 97 95 96 Oxygen Delivery Simple Face Mask Room Air Room Air Oxygen Flow Rate 10 07/15/23 11:39 07/15/23 11:59 07/15/23 13:50 Temperature 98.1 F 98.5 F Pulse Rate 74 83 83 Respiratory Rate 14 16 14 Blood Pressure 107/67 138/93 H 120/69 Pulse Oximetry 96 99 98 Oxygen Delivery Room Air Oxygen Flow Rate 07/15/23 21:03 07/15/23 20:00 07/16/23 05:40 Temperature 99.2 F 99.0 F Pulse Rate 79 74 Respiratory Rate 18 18 Blood Pressure 120/77 115/63 Pulse Oximetry 97 97 Oxygen Delivery Room Air Oxygen Flow Rate Intake/Output Intake/Output: Intake & Output 07/13/23 07/14/23 07/15/23 07/16/23 23:59 23:59 23:59 23:59 Intake Total 1050 1720 1460 Output Total 200 600 Balance 1050 1520 860 Meds/Results Medications: Active Medications Generic Name Dose Route Start Last Admin Trade Name Freq PRN Reason Stop Dose Admin Acetaminophen 650 mg 07/14/23 18:21 Acetaminophen 325 Mg Tablet PO Q4H PRN Mild Pain (1-3) or Fever Hydromorphone HCl 0.5 mg 07/14/23 20:29 07/15/23 04:13 Hydromorphone Hcl Inj (*Crx) 1 Mg/Ml Syr IV PUSH 0.5 mg Q3H PRN Administration Pain Rated 7-10 Ceftriaxone Sodium 1 gm in 50 mls @ 100 mls/hr 07/15/23 18:00 07/15/23 18:20 Rocephin 1 Gm/Ns 50 Ml IVPB Infused Q24H MERLY Infusion Ondansetron HCl 4 mg 07/14/23 18:21 07/15/23 12:25 Ondansetron Inj 4 Mg/2 Ml Vial IV PUSH 4 mg Q4H PRN Administration Nausea
--- NOTE | 2023-07-16 09:36 | PM.IMPN ---
Progress Note: A&P Assessment and Plan (1) Right ureteral calculus: Code(s): N20.1 - Calculus of ureter Status: Acute Assessment and Plan: Underwent cystoscopy right retrograde pyelogram, right ureteroscopy, right ureteral stent placement on 07/15/[address] Lino. Tolerated procedure well. Plan for CT and KUB for stone evaluation per urology. If no stone visualized in the ureter will plan on stent removal as an outpatient in the office. (2) UTI (urinary tract infection): Qualifiers: Hematuria presence: without hematuria Urinary tract infection type: site unspecified Qualified Code(s): N39.0 - Urinary tract infection, site not specified Code(s): N39.0 - Urinary tract infection, site not specified Status: Acute Assessment and Plan: Urine culture with growth of E coli sensitive to ceftriaxone. will switch to oral antibiotics (3) Bilateral nephrolithiasis: Code(s): N20.0 - Calculus of kidney Status: Acute Assessment and Plan: Significant bilateral nephrolithiasis. Will need outpatient management of stones as well as metabolic evaluation. Time Spent With Patient Time with patient: less than 15 minutes Subjective Date/time seen: 07/16/23 09:36 Interval history: Linnette is doing well today. She tolerated her procedure well yesterday and pain has been well controlled. She denies nausea, vomiting, fever, chills. She is tolerating her diet. Reports mild stent discomfort and soreness of the right flank. Denies dysuria or hematuria. States urine appears dark in color. Urology note reviewed.? CT/KUB eval-pending outpt f/u with urology Review of Systems Review of Systems: 12 systems were reviewed and are negative except for as per HPI. All systems reviewed & are unremarkable except as noted in HPI and below Exam Narrative: General: Awake, alert, comfortable, no acute distress HEENT: Normocephalic, atraumatic, sclerae anicteric Respiratory: Normal respiratory effort, no accessory muscle use Abdomen: Nondistended, soft, nontender Skin: Normal coloration, warm and dry Neurologic: No focal neuro deficits noted Psychiatric: Appropriate mood and affect, judgment and insight intact Objective Data Vital Signs Vital Signs: Vital Signs - 24 hr 07/15/23 09:56 07/15/23 10:40 07/15/23 10:55 Temperature 99.1 F 97.4 F L Pulse Rate 74 96 92 Respiratory Rate 14 20 18 Blood Pressure 107/64 103/76 117/79 Pulse Oximetry 100 97 96 Oxygen Delivery Room Air Simple Face Mask Room Air Oxygen Flow Rate 10 07/15/23 10:45 07/15/23 11:10 07/15/23 11:25 Temperature Pulse Rate 92 77 Respiratory Rate 18 15 Blood Pressure 118/89 117/83 Pulse Oximetry 97 95 96 Oxygen Delivery Simple Face Mask Room Air Room Air Oxygen Flow Rate 07/15/23 11:39 07/15/23 11:59 07/15/23 13:50 Temperature 98.1 F 98.5 F Pulse Rate 74 83 83 Respiratory Rate 14 16 14 Blood Pressure 107/67 138/93 H 120/69 Pulse Oximetry 96 99 98 Oxygen Delivery Room Air Oxygen Flow Rate 07/15/23 21:03 07/15/23 20:00 07/16/23 05:40 Temperature 99.2 F 99.0 F Pulse Rate 79 74 Respiratory Rate 18 18 Blood Pressure 120/77 115/63 Pulse Oximetry 97 97 Oxygen Delivery Room Air Oxygen Flow Rate Intake/Output Intake/Output: Intake & Output 07/13/23 07/14/23 07/15/23 07/16/23 23:59 23:59 23:59 23:59 Intake Total 1050 1720 1460 Output Total 200 600 Balance 1050 1520 860 Meds/Results Medications: Active Medications Generic Name Dose Route Start Last Admin Trade Name Freq PRN Reason Stop Dose Admin Acetaminophen 650 mg 07/14/23 18:21 Acetaminophen 325 Mg Tablet PO Q4H PRN Mild Pain (1-3) or Fever Hydromorphone HCl 0.5 mg 07/14/23 20:29 07/15/23 04:13 Hydromorphone Hcl Inj (*Crx) 1 Mg/Ml Syr IV PUSH 0.5 mg Q3H PRN Administration Pain Rated 7-10 Ceftriaxone Sodium 1 gm in 50 mls @ 100 mls
[2023-07-16] MEDS: CEFDINIR 300 MG CAPSULE PO (12:54)
[2023-07-16 14:07] VITALS: BP 109/62; PULSE 75; RESP 17; TEMP 36.6; O2SAT 99
--- NOTE | 2023-07-16 16:42 | PM.DS ---
DS: Admitting Diagnosis Discharge Date 07/15 Admitting Diagnosis uti DS: Discharge Diagnosis Discharge Diagnosis (1) Right ureteral calculus: Code(s): N20.1 - Calculus of ureter Status: Acute Assessment and Plan: Underwent cystoscopy right retrograde pyelogram, right ureteroscopy, right ureteral stent placement on 07/15/[address] Lino. Tolerated procedure well. Plan for CT and KUB for stone evaluation per urology. If no stone visualized in the ureter will plan on stent removal as an outpatient in the office. (2) UTI (urinary tract infection): Qualifiers: Hematuria presence: without hematuria Urinary tract infection type: site unspecified Qualified Code(s): N39.0 - Urinary tract infection, site not specified Code(s): N39.0 - Urinary tract infection, site not specified Status: Acute Assessment and Plan: Urine culture with growth of E coli sensitive to ceftriaxone. will switch to oral antibiotics (3) Bilateral nephrolithiasis: Code(s): N20.0 - Calculus of kidney Status: Acute Assessment and Plan: Significant bilateral nephrolithiasis. Will need outpatient management of stones as well as metabolic evaluation. Plan Final dx: UTI, Right ureteral calculus DS: Summary Hospital Course Hospital Course: Linnette is doing well today. She tolerated her procedure well yesterday and pain has been well controlled. She denies nausea, vomiting, fever, chills. She is tolerating her diet. Reports mild stent discomfort and soreness of the right flank. Denies dysuria or hematuria. States urine appears dark in color. Underwent cystoscopy right retrograde pyelogram, right ureteroscopy, right ureteral stent placement on 07/15/[address] Lino.? Tolerated procedure well.? Will plan for CT and KUB for stone evaluation.? If no stone visualized in the ureter will plan on stent removal as an outpatient.? Status at Discharge Functional status at discharge: independent ambulation Overall status at discharge: patient is back to baseline Time Spent with Patient Time attestation: Total time spent providing and/or coordinating discharge services: Time spent: Less than 30 minutes Exam Narrative: General: Awake, alert, comfortable, no acute distress HEENT: Normocephalic, atraumatic, sclerae anicteric Respiratory: Normal respiratory effort, no accessory muscle use Abdomen: Nondistended, soft, nontender Skin: Normal coloration, warm and dry Neurologic: No focal neuro deficits noted Psychiatric: Appropriate mood and affect, judgment and insight intact DS: Data Data Completed and Pending Completed studies during hospitalization: cystoscopy Pending studies at discharge: none Labs on day of discharge: Labs from last 24 hours 07/16/23 07/15/23 05:14 18:02 WBC 8.3 RBC 4.53 Hgb 12.9 Hct 40.2 MCV 88.7 MCH 28.5 MCHC 32.1 RDW 12.1 Plt Count 173 MPV 11.8 H Immature Gran % (Auto) 0.2 Neut % (Auto) 78.2 H Lymph % (Auto) 14.5 L [place] % (Auto) 7.0 Eos % (Auto) 0.0 Baso % (Auto) 0.1 L Lymph # (Auto) 1.21 [place] # (Auto) 0.6 Eos # (Auto) 0.0 Baso # (Auto) 0.0 Abs Immat Gran (auto) 0.02 Absolute Neuts (auto) 6.5 Absolute Nucleated RBC 0.000 Nucleated RBC % 0.0 Sodium 140 Potassium 3.5 Chloride 110 H Carbon Dioxide 23 Anion Gap 7 BUN 15 Creatinine 1.00 Estim Creat Clear Calc 84 Estimated GFR > 60 Glucose 94 Uric Acid 4.5 Calcium 8.8 Magnesium 1.9 Total Bilirubin 1.0 AST 17 ALT 16 Alkaline Phosphatase 45 Total Protein 6.0 L Albumin 3.8 Discharge Plan Discharge Consulting providers: Donnie Parsons Discharging Clinician: Joan Correa Patient Disposition: Home, Self-Care Activity: as tolerated Diet: as tolerated Patient Instructions: Antibiotic Form, How to Stop Smoking (DC) Stand Alone Forms: General Discharge Informatio
== END 2023-07-16 17:20 | disposition home or self-care (01) | DRG 661 ==
LOC: ANHED 18:26 → ANH3MEDSUR 19:04
PROVIDERS: Nurse Practitioner Acute Care; Physician Assistant; Urology; Admitting Provider Internal Medicine; Emergency Provider Family Medicine; PCP Family Medicine; Visit Provider Nurse Practitioner
PROC: 0T768DZ Dilation of Right Ureter with Intraluminal Device, Via Natural or Artificial Opening Endoscopic (ICD-10-PCS; CPT 52352; principal; 2023-07-15 11:15)
DX: N13.6 Pyonephrosis (principal); N17.9 Acute kidney failure, unspecified; B96.20 Unspecified Escherichia coli [E. coli] as the cause of diseases classified elsewhere; E86.0 Dehydration; F17.290 Nicotine dependence, other tobacco product, uncomplicated; E66.9 Obesity, unspecified; Z68.33 Body mass index [BMI] 33.0-33.9, adult; Z90.721 Acquired absence of ovaries, unilateral; Z90.710 Acquired absence of both cervix and uterus
CPT/HCPCS: 36415; 74018; 74176; 74420; 80048; 80053; 80076; 81001; 83690; 83735; 84550; 85025; 87077; 87086; 87088; 87186; 96361; 96374; 96375; 96376; 99285; A9270; C1758; C1769; C2617; J0330; J0696; J0780; J1100; J1170; J1200; J1885; J2250; J2270; J2405; J2550; J2704; J3010; J7030; J7120; Q9966

== ENCOUNTER 2024-03-25 09:57 | Day surgery (SDC) | payer BC, SELFPAY ==
[2024-03-25] VITALS (9 sets, daily range): BP systolic 91–135; BP diastolic 58–88; PULSE 64–90; RESP 12–19; TEMP 36.1–37; O2SAT 93–100
--- NOTE | ~2024-03-25 | XR_ITS ---
EXAMINATION: XR retrograde pyelo w/stent RT DATE: 03/25/2024 17:30 RN NEW GRAD INDICATION: RIGHT SIDE STENT PLACEMENT . TECHNIQUE: 3 fluoroscopic images of the right abdomen and pelvis were obtained during right retrograd e pyelography with stent placement, performed by Andrew Spencer MD. I was not present during the procedure. Fluoroscopy exposure time was 13 seconds. Air Kerma 6.38 mGy. DAP 0.40198 mGym2. COMPARISON: None FINDINGS/IMPRESSION: Fluoroscopic documentation of right retrograde pyelography with stent placement,. Please refer to the operative note for complete procedural details . Reviewed, dictated and finalized at location K. NEW GRAD
--- NOTE | ~2024-03-25 | CT_ITS ---
CLINICAL INDICATION: Right flank pain COMPARISON: 07/16/2023. TECHNIQUE: Multiple contiguous axial images of the abdomen and pelvis were performed without the admi nistration of intravenous contrast The dose-length product (DLP) was 975.75 mGy-cm. Automated exposure control and iterative reconstruction technique were employed. FINDINGS/OBSERVATIONS: Visualized lower thorax: The bilateral lung bases are clear. The heart is of normal size, without pericardial effusion. Moderate hiatal hernia is present. Liver: The liver demonstrates homogeneous attenuation and is not enlarged measuring 16. cm in longitudinal d imension. Gallbladder and biliary system: The gallbladder is only minimally distended, and otherwise unremarkable. Pancreas: Limited evaluation of the pancreas secondary to the lack of intravenous contrast. Spleen: The spleen demonstrates homogeneous attenuation and is not enlarged measuring 6 cm in longitudinal di mension. Kidneys: Innumerable subcentimeter calculi within the bilateral kidneys, along with a nodular contour and foci of increased and decreased attenuation. Right-sided hydroureteronephrosis, without an obstructing calculi identified. Stable calcifications within the retroperitoneum, adjacent to and along the course of the right urete r. Interval removal of the double-J stent, seen on 07/16/2023. Adrenal glands: Unremarkable. Gastrointestinal tract: Colonic diverticulosis without surrounding inflammatory change. Fecal stasis within the colon. Appendix: The appendix is not definitively visualized. However, no pericecal inflammatory change is identified suggest the presence of acute appendicitis. Vasculature: Unremarkable. Lymph nodes: No pathologically enlarged or morphologically suspicious lymph nodes within the retroperitoneum or at the root of the mesentery. Pelvic structures: The bladder is distended, and otherwise unremarkable. The uterus is either surgically absent or markedly atrophic.. Body wall and musculoskeletal: Small fat-containing umbilical hernia. No significant degenerative disease within the lower thoracic or lumbosacral spine. IMPRESSION: Moderate right-sided hydroureteronephrosis without a discrete stone identified. Multiple stable renal calculi and renal ureteral stone disease is present. Multiple subcentimeter nonobstructing renal calculi within the right kidney. Reviewed, dictated and finalized at location A. E SPLICING TECHNICIAN
--- OUTSIDE RECORDS SUMMARY | 2024-03-25 10:32 | XMS_ITS | Continuity of Care Document ---
Author Name [facility] Organization [facility] Care Team Providers Care Rubbish Collection Supervisor Name Role Phone [facility] Unavailable Unavailable Problems Combined list of problems from Department of Defense and [facility] facilities. It does not include entries that were removed or entered in error. Problem Status Onset Date Problem Type Date of Resolution Comments Source Diagnosis: ICD-10-CM Z63.6 Dependent relative needing care at home Active Diagnosis [facility] Diagnosis: ICD-10-CM Z63.79 Other stressful life events affecting family and household Active Diagnosis [facility] Encounters Combined list of: 1) Encounters from Department of Veterans Affairs facilities going back up to thelast 18 months. 2) Encounters from the Department of [facility] facilities going back up to 280 months. Location Location Details Encounter Type Encounter Number Reason For Visit Attending Provider ADM Date DC Date Status Disposition Source [facility] HLTH [facility] ASSMT/REAS SESSMENT [id number] Diagnos is: ICD-10- CM Z63.6 Depende nt relativ e needing care at home
NOEMÍ PEREZ 02/07 [facility] PROGRAM INTAKE ASSESSMENT [id number] Diagnos is: ICD-10- CM Z63.6 Depende nt relativ e needing care at home
Rebekah COLE 03/06 [facility] HC PRO PHONE CALL 5-10 MIN [id number] Diagnos is: ICD-10- CM Z63.79 Other stressf ul life events affecti ng family and househo ld
EFREN SIMON 03/14 [facility] En[facility] [id number] EDA BIRCH L 03/20 [facility] Outpatient Encounter [id number] 03/26 [facility] ASSMT/REAS SESSMENT [id number] Diagnos is: ICD-10- CM Z63.6 Depende nt relativ e needing care at home
SEO,STA CY L 07/31 [facility] Outpatient Encounter [id number] 11/26 [facility] ASSMT/REAS SESSMENT [id number] Diagnos is: ICD-10- CM Z63.6 Depende nt relativ e needing care at home
SEO,STA CY L 12/02 [facility] Outpatient Encounter [id number] 03/12 [facility] ASSMT/REAS SESSMENT [id number] Diagnos is: ICD-10- CM Z63.6 Depende nt relativ e needing care at home
SEO,STA CY L 03/17 [facility]
--- OUTSIDE RECORDS SUMMARY | 2024-03-25 10:32 | XMS_ITS | Encounter Summary ---
Author Organization [facility] Address [address] [place] [address]. [place], [place] [id number] [place] [address] Care Team Providers Care Plant Technician/Control Room Operator Name Role Phone Phu Valladares DO Primary Care Provider + Encounter Details Date Type Department Care Team ([facility] st Contact Info) Description 04/24/2020 Key Cybersecurity Message Support Your App [facility] Health Information Management [address] [place] [address] [place], [facility] Provider Proxy Access Request Social History Tobacco Use Types Packs/Day Years Used Date Smoking Tobacco: Every Day Cigarettes 1 15 Electronic Cigarettes Smokeless Tobacco: Never Comments:Current e-cigarette use Alcohol Use Standard Drinks/Week Comments Never 0 (1 standard drink = 0.6 oz pur e alcohol) AUDIT-C Answer Date Recorded Q1: How often do you have a drink containing alc ohol? Never 04/06/2020 Average Number of Drinks Not on file 021 Frequency of Binge Drinking Not on file 03/27 PHQ-2 Answer Date Recorded PHQ-2 Score - If the patient scores above 3, please move on to questions 3-9 0 04/06/2020 Comments Unknown Sex and Gender Information Value Date Recorded Sex Assigned at Not on file Legal Sex Female 8:30 PM CDT Gender Identity Not on file Sexual Orientation Not on file Occupation Industry Job Start Date Job End Date Not on file Not on file Not on file Not on file COVID-19 Exposure Response Date Recorded In the last month, have you been in contact with someone who was confirmed or suspected to have Coronavirus / COVID-19? 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 documented as of this encounter Plan of Treatment Not on file documented as of this encounter Visit Diagnoses Not on filedocumented in this encounter Additional Health Concerns Infection Onset Date Last Indicated Resolved Time COVID-19 Rule Out 03/01/2021 03/01/2021 03/01/2021 11:36 AM NAIL MILL WORKER COVID-19 Rule Out 03/01/2021 03/01/2021 03/02/2021 6:37 PM NAIL MILL WORKER COVID-19 Rule Out 03/05/2021 03/05/2021 03/12/2021 12:32 AM NAIL MILL WORKER documented as of this encounter Care Teams Plant Technician/Control Room Operator Relationship Specialty Start Date End Date Phu Valladares DO [address] [place] [id number] PCP - General FAMILY PRACTICE 04/06/20 documented as of this encounter
--- OUTSIDE RECORDS SUMMARY | 2024-03-25 10:32 | XMS_ITS | Clinical Summary ---
Author Organization [facility] Address [facility]. [place], [place] [address] [place] [address] Care Team Providers Care Welder Assembler Name Role Phone Phu Valladares DO Primary Care Provider + Allergies Active Allergy Reactions Criticality Noted Date Comments Morphine Itching 08/23/2015 Penicillins Unknown 08/23/2015 Medications Cholecalciferol (VITAMIN D) 50 MCG (1999) CapIndications:V itamin D deficiency Take 1 capsule by mouth daily. 30 capsule 1 Active benzonatate (TESSALON PERLES) 100 MG capsuleIndicatio ns:Cough,Fever, unspecified fever cause Take 1-2 capsules (100-200 mg total) by mouth 3 (three) times daily as needed for Cough. 40 capsule 2 Active methylPREDNISolo ne, BERTA, 4 MG tabletIndication s:Cough 6 TABLETS ON DAY ONE, 5 TABLETS DAY TWO, 4 TABLETS DAY THREE, 3 TABLETS DAY FOUR, 2 TABLETS DAY FIVE, AND 1 TABLET DAY SIX 1 each 2 Active Active Problems Problem Noted Date Diagnosed Date Vitamin D deficiency 04/27/2020 Endometriosis 04/06/2020 Bleeding from anus 04/06/2020 Onychomycosis of toenail 08/23/2015 Dyslipidemia 08/23/2015 Resolved Problems Problem Noted Date Diagnosed Date Resolved Date Lichen planus 08/23/2015 04/06/2020 Insomnia 08/23/2015 04/06/2020 Fatigue 08/23/2015 04/06/2020 Immunizations Name Administration Dates Next Due Influenza Adult (Generic) 01/07/2018 Tdap (Adacel) 04/06/2020 Family History Medical History Relation Comments Hypertension Mother Stroke Mother Cancer Paternal Aunt Relation Status Comments Mother Paternal Aunt Social History Tobacco Use Types Packs/Day Years [...] please move on to questions 3-9 0 03/01/2021 Comments Unknown Sex and Gender Information Value Date Recorded Sex Assigned at Not on file Legal Sex Female 8:30 PM CDT Gender Identity Not on file Sexual Orientation Not on file Occupation Industry Job Start Date Job End Date Not on file Not on file Not on file Not on file Last Filed Vital Signs Vital Sign Reading Time Taken Comments Blood Pressure 108/76 04/06/2020 1:21 PM MARKETING SERVICES COORDINATOR Pulse 85 04/06/2020 1:21 PM MARKETING SERVICES COORDINATOR Temperature 36.8 ??C (98.2 ??F) 04/06/2020 1:21 PM CS T Respiratory Rate 16 04/06/2020 1:21 PM MARKETING SERVICES COORDINATOR Oxygen Saturation 97% 04/06/2020 1:21 PM MARKETING SERVICES COORDINATOR Inhaled Oxygen Concentration - - Weight 112.5 kg (248 lb) 04/06/2020 1:21 PM MARKETING SERVICES COORDINATOR Height 172.1 cm (5' 7.75 ) 04/06/2020 1:21 PM CS T Body Mass Index 37.99 04/06/2020 1:21 PM MARKETING SERVICES COORDINATOR Plan of Treatment Health Maintenance Due Date Last Done Comments Annual Physical 10/19/1982 Pneumococcal Vaccine: Pediatrics (0 to 5 Years) and At-Risk Patients (6 to 64 Years) (1 of 2 - PCV) 10/19/1985 Hepatitis C 10/19/1997 Hepatitis B Vaccines (1 of 3 - 19+ 3-dose series) 10/19/1998 COVID-19 Vaccine (1 - season) 2023 Mammogram Screening 11/23/2023 11/22/2021, 10/23/2020, 04/17/2020, Additional history exists Influenza Adult (#1) 2023 01/07/2018 DTaP, Tdap and Td Vaccines (2 - Td or Tdap) 04/06/2030 04/06/2020 HPV Vaccines Aged Out No longer eligi ble based on patient's age to complete this topic Meningococcal B Vaccine Aged Out No l onger eligible based on patient's age to complete this topic Meningococcal Vaccine Aged Out No jose logan eligible based on patient's age to complete this topic RSV Immunizations Under 20 Months Aged Out No longer eligible based on patient's age to complete this topic Procedures Procedure Name Priority Date/Time Associated Diagnosis Comments MAMMOGRAM GENERIC (SCAN ORDER) 11/22/2021 from Last 3 Months or Most Recently Relevant to Health Maintenance Results * MAMMOGRAM GENERIC (11/22/2021) Anatomical Region Laterality Modality Other 11/22/2021 Narrative 11/22/2021 Ordered by an unspecified provider. us Documents Scanned SCANNING Final Result from Last 3 Months or Most Recently Relevant to Health Maintenance Insurance [facility] Care Teams Welder Assembler Relationship Specialty Start Date End Date Phu Valladares DO [address] [place] [address] PCP - General FAMILY PRACTICE 04/06/20
--- OUTSIDE RECORDS SUMMARY | 2024-03-25 10:32 | XMS_ITS | Encounter Summary ---
Author Organization [facility] Address [facility]ly [facility]. [place], [place] [address] [place] [address] Care Team Providers Care Detailer School Photographs Name Role Phone Puh Valladares DO Primary Care Provider + Encounter Details Date Type Department Care Team (Late st Contact Info) Description 12/05/2021 [employer] Message [employer] [facility] Medical Group Family & Internal Medicine [address] [phone] [place], [facility] Provider results Social History Tobacco Use Types Packs/Day Years [...] file Not on file Not on file documented as of this encounter Plan of Treatment Not on file documented as of this encounter Visit Diagnoses Not on filedocumented in this encounter Additional Health Concerns Assessment Noted Time PHQ-9 Depression Total Score: 0 03/01/19 22 9:55 AM STEAM FLATTENER documented as of this encounter Care Teams Detailer School Photographs Relationship Specialty Start Date End Date Phu Valladares DO [address] [place] [address] PCP - General FAMILY PRACTICE 04/06/20 documented as of this encounter
[2024-03-25 11:43] LABS: Basophils Percent Auto 0.3 % (0.2-1.2); Eosinophils Absolute Auto 0.1 K/mm3 (0-0.3); Eosinophils Percent Auto 1.6 % (0-4.4); Hematocrit 40.2 % (37.0-47.0); Immature Granulocyte Absolute 0.03 K/mm3 (0.00-0.031); Immature Granulocyte Percent A 0.3 % (0-0.5); Lymphocytes Absolute Auto 1.79 K/mm3 (0.9-3.2); Lymphocytes Percent Auto 20.7 % (18.3-44.2); Mean Corpuscular HGB Conc 32.3 g/dl (32-36); Mean Corpuscular Hemoglobin 28.3 pg (26-34); Mean Corpuscular Volume 87.6 fl (80-100); Mean Platelet Volume 10.3 fl (7.4-10.4); Monocytes Absolute Auto 0.5 K/mm3 (0.1-0.6); Monocytes Percent Auto 5.6 % (2.6-8.5); Neutrophils Absolute Auto 6.2 K/mm3 (1.3-6.7); Neutrophils Percent Auto 71.5 % (45.5-73.1); Platelet Count Result 231 k/mm3 (150-375); Red Blood Count 4.59 M/mm3 (4.2-5.4); Red Cell Distribution Width 12.2 % (11.5-14.5); White Blood Count 8.6 K/mm3 (4.5-10.0)
[2024-03-25 11:54] LABS: Alanine Aminotransferase 17 U/L (6-35); Alkaline Phosphatase 55 U/L (38-126); Anion Gap 10 mmol/L (4-12); Aspartate Amino Transferase 20 U/L (14-36); Bilirubin,Total 1.2 mg/dL (0.2-1.3); Blood Urea Nitrogen 20 mg/dL (7-17); Calcium 9.3 mg/dL (8.4-10.2); Carbon Dioxide 24 mmol/L (22-30); Chloride 108 mmol/L (98-107); Estimated CRCL calculation 92 ml/min; Estimated Glomerular Filt Rate > 60; Glucose 105 mg/dL (65-110); Lipase 244 U/L (23-300); Sodium 142 mmol/L (137-145)
[2024-03-25] MEDS: HYDROmorphone HCL INJ (*CRX) 1 MG/ML SYR IV PUSH (12:45)
--- OUTSIDE RECORDS SUMMARY | 2024-03-25 13:01 | XMS_ITS | Continuity of Care Document ---
Author Name [facility] Organization [facility] Care Team Providers Care Brim Raiser Name Role Phone [facility] Unavailable Unavailable Problems Combined list of problems from Department of Defense and Veterans [facility] facilities. It does not include entries that were removed or entered in error. Problem Status Onset Date Problem Type Date of Resolution Comments Source Diagnosis: ICD-10-CM Z63.6 Dependent relative needing care at home Active Diagnosis [facility] Diagnosis: ICD-10-CM Z63.79 Other stressful life events affecting family and household Active Diagnosis [facility] Encounters Combined list of: 1) Encounters from Department of Veterans Affairs facilities going back up to thelast 18 months. 2) Encounters from the Department of [facility] facilities going back up to 280 months. Location Location Details Encounter Type Encounter Number Reason For Visit Attending Provider ADM Date DC Date Status Disposition Source [facility] HLTH BHV ASSMT/REAS SESSMENT [id number] Diagnos is: ICD-10- CM Z63.6 Depende nt relativ e needing care at home
NOEMÍ PEREZ 02/07 [facility] PROGRAM INTAKE ASSESSMENT [id number] Diagnos is: ICD-10- CM Z63.6 Depende nt relativ e needing care at home
Rebekah COLE 03/06 [facility] HC PRO PHONE CALL 5-10 MIN [id number] Diagnos is: ICD-10- CM Z63.79 Other stressf ul life events affecti ng family and househo ld
EFREN SIMON 03[facility]14 [facility] [id number] EDA BIRCH L 03/20 [facility] Outpatient Encounter [id number] 03/26 [facility] ASSMT/REAS SESSMENT [id number] Diagnos is: ICD-10- CM Z63.6 Depende nt relativ e needing care at home
SEO,STA CY L 07/31 [facility] Outpatient Encounter [id number] 11/26 [facility] ASSMT/REAS SESSMENT [id number] Diagnos is: ICD-10- CM Z63.6 Depende nt relativ e needing care at home
SEO,STA CY L 12/02 [facility] Outpatient Encounter [id number] 03/12 [facility] ASSMT/REAS SESSMENT [id number] Diagnos is: ICD-10- CM Z63.6 Depende nt relativ e needing care at home
SEO,STA CY L 03/17 [facility]
--- OUTSIDE RECORDS SUMMARY | 2024-03-25 13:01 | XMS_ITS | Encounter Summary ---
Author Organization [facility] Address [address] [place] [address]. [place], [place] [address] [place] [address] Care Team Providers Care Ob/Gyn Doctor Name Role Phone Phu Valladares DO Primary Care Provider + Encounter Details Date Type Department Care Team ([facility] st Contact Info) Description 04/24/2020 [employer] Message [employer] [facility] Health Information Management [address] [place] [address] [place], [facility] Provider Proxy Access Request Social History Tobacco [...] COVID-19? No / Unsure 04/06/2020 1:02 PM [employer] documented as of this encounter Plan of Treatment Not on file documented as of this encounter Visit Diagnoses Not on filedocumented in this encounter Additional Health Concerns Infection Onset Date Last Indicated Resolved Time COVID-19 Rule Out 03/01/2021 03/01/2021 03/01/2021 11:36 AM [employer] COVID-19 Rule Out 03/01/2021 03/01/2021 03/02/2021 6:37 PM [employer] COVID-19 Rule Out 03/05/2021 03/05/2021 03/12/2021 12:32 AM [employer] documented as of this encounter Care Teams Ob/Gyn Doctor Relationship Specialty Start Date End Date Phu Valladares DO [address] [place] [address] PCP - General FAMILY PRACTICE 04/06/20 documented as of this encounter
--- OUTSIDE RECORDS SUMMARY | 2024-03-25 13:01 | XMS_ITS | Encounter Summary ---
Author Organization [facility] Address [facility]. [place], [place] [address] [place] [address] Care Team Providers Care Shipping Supervisor Name Role Phone Phu Valladares DO Primary Care Provider + Encounter Details Date Type Department Care Team (Late st Contact Info) Description 12/05/2021 [employer] Message [employer] [facility] Medical Group Family & Internal Medicine [address] [phone] [place], [facility] Provider results Social History Tobacco Use Types [...] Total Score: 0 03/01/19 22 9:55 AM PHARMACOGENETICIST documented as of this encounter Care Teams Shipping Supervisor Relationship Specialty Start Date End Date Phu Valladares DO [address] [place] [address] PCP - General FAMILY PRACTICE 04/06/20 documented as of this encounter
--- OUTSIDE RECORDS SUMMARY | 2024-03-25 13:01 | XMS_ITS | Clinical Summary ---
Author Organization [facility] Address [facility]6 [facility]. [place], [place] [address] [place] [address] Care Team Providers Care Biomedical Engineer Name Role Phone Phu Valladares DO Primary [...] Comments Blood Pressure 108/76 04/06/2020 1:21 PM PRESCRIPTIONIST Pulse 85 04/06/2020 1:21 PM PRESCRIPTIONIST Temperature 36.8 ??C (98.2 ??F) 04/06/2020 1:21 PM CS T Respiratory Rate 16 04/06/2020 1:21 PM PRESCRIPTIONIST Oxygen Saturation 97% 04/06/2020 1:21 PM PRESCRIPTIONIST Inhaled Oxygen Concentration - - Weight 112.5 kg (248 lb) 04/06/2020 1:21 PM PRESCRIPTIONIST Height 172.1 cm (5' 7.75 ) 04/06/2020 1:21 PM CS T Body Mass Index 37.99 04/06/2020 1:21 PM PRESCRIPTIONIST Plan of Treatment Health Maintenance Due Date [...] Most Recently Relevant to Health Maintenance Insurance [facility] Care Teams Biomedical Engineer Relationship Specialty Start Date End Date Phu Valladares DO [address] [place] [address] PCP - General FAMILY PRACTICE 04/06/20
[2024-03-25] MEDS: KETOROLAC 15 MG/ML VIAL (*BKC) IV PUSH ×2 (13:04→17:28)
[2024-03-25] MEDS: ACETAMINOPHEN 500 MG TABLET 1000 MG PO (13:05)
[2024-03-25] MEDS: ONDANSETRON INJ 4 MG/2 ML VIAL IV PUSH ×2 (13:11→18:45)
[2024-03-25 14:02] LABS: Add Urine Microscopic? YES; Appearance Urine Turbid (Clear); Bacteria Urine 4+ /hpf; Bilirubin Urine Negative (Negative); Blood Urine Negative (Negative); Color Urine Yellow (Yellow); Glucose Urine UA Negative (Negative); Ketones Urine Negative (Negative); Leukocyte Esterase Ur 2+ LEU/UL (Negative); Nitrate Urine Negative (Negative); Non Pathogenic Casts 0-2; Protein Urine Negative (Negative); RBC Urine 0-2 /hpf (0-2); Specific Grav Ur 1.013 (1.001-1.035); Squamous Epithelial Cell Urine Few /hpf (Few); Urobilinogen Urine 0.2 mg/dL (<2.0); WBC Urine 21-50 /hpf (0-3)
--- NOTE | 2024-03-25 14:40 | ED_ITS ---
HPI - General Adult General Chief complaint: Urogenital-Female Stated complaint: R flank pain, hx of kidney stones Time Seen by Provider: 03/25/24 12:02 History of Present Illness HPI narrative: This is a 43-year-old female with history of kidney stones presenting for right- sided flank pain. Pain is sharp wraps around from her back into her groin. It is feels similar to previous kidney stones she has had in the past. She has had associated nausea. She denies fever chills. She does not have dysuria but she does have increased urgency and frequency. She has required stent placement in the past. 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 Code status: Full code. Smoking packs per day: 1 Smoking cigarettes per day: 20.0 Years smoked: 15 Smoking pack-years: 15.00 Smoking status: Current every day smoker Additional smoking assessment comments: fills little pod once every two days Alcohol intake: former Substance use: current Substance use type: does not use Do You Feel Safe in your Home?: Yes Lack of Transportation: No Lack of Food: Never True Current Housing: I Have Housing Concerned About Future Housing: No Difficulty Paying Gas/Electric Bills: No Difficulty Paying for Meds: No Currently Unemployed: No Education: Trade/Vocational Certificate Difficulty w/ Childcare or Family Care: No Living arrangements: with family Additional living arrangements comments: Lives with spouse. They have 2 children. Occupation/Education: occupation Spiritual care concerns: No Exam 2 Narrative: APPEARANCE: No apparent distress. Head: atraumatic. EYES: EOMI, NOSE: Atraumatic NECK: Trachea midline RESPIRATORY: No increased rate of breathing CTAB CARDIOVASCULAR: RRR, no peripheral edema ABDOMINAL: Right-sided CVA pain, abdomen soft nontender guarding rebound MUSCULOSKELETAl: No obvious deformities NEURO: Alert. Moving 4/4 extremities SKIN:: Warm, dry. Normal color PSYCHIATRIC: Normal affect Course Vital Signs Vital signs: Vital Signs Temperature 98.6 F 03/25/24 10:03 Pulse Rate 90 03/25/24 10:03 Respiratory Rate 18 03/25/24 10:03 Blood Pressure 116/85 03/25/24 10:03 Pulse Oximetry 99 03/25/24 10:03 Oxygen Delivery Room Air 03/25/24 10:03 Temperature 97.1 F L 03/25/24 17:36 Pulse Rate 66 03/25/24 18:48 Respiratory Rate 19 03/25/24 18:15 Blood Pressure 126/65 03/25/24 18:48 Pulse Oximetry 93 03/25/24 18:15 Oxygen Delivery Room Air 03/25/24 18:48 Oxygen Flow Rate 8 03/25/24 17:51 Medical Decision Making [facility] Narrative Medical decision making narrative: -Course: 43-year-old female presenting with right-sided flank pain. CT shows a 6mm stone in the distal ureter with moderate hydronephrosis. Urine with 21-50 white blood cells, +2 leuk esterase 4+ bacteria. Patient has urgency and frequency but no dysuria. No fevers. White count is normal. Case was discussed with Dr. [place] - Urology. Tj has evaluated the patient and she will be taken to the OR. Further care per urology. -DDX includes but is not limited to: Kidney stone, infected stone, muscle strain, pyelonephritis -Co-morbidities complicating care: History of kidney stones requiring stents -Independent interpretation of studies: Labs imaging reviewed White count 8.6, UA with 21-50 white blood cells +2 leuk esterase with 4+ bacteria -Discussion of Management/Consultants: Tj -Interventions: Diluadid, toradol, zofran -Shared decision making / Disposition: Vital Signs Vital Signs: Vital Signs Temperature 98.6 F 03/25/24 10:03 Pulse Rate 90 03/25/24 10:03 Respiratory Rate 18 03/25/24 10:03 Blood Pressure 116/85 03/25/24 10:03 Pulse Oximetry 99 03/25/24 10:03 Oxygen Delivery Room Air 03/25/24 10:03 Temperature 97.1 F L 03/25/24 17:36 Pulse Rate 66 03/25/24 18:48 Respiratory Rate 19 03/25/24 18:15 Blood Pressure 126/65 03/25/24 18:48 Pulse Oximetry 93 03/25/24 18:15 Oxygen Delivery Room Air 03/25/24 18:48 Oxygen Flow Rate 8 03/25/24 17:51 Lab Data 03/25/24 11:34 03/25/24 11:34 Labs: Lab Results 03/25/24 03/25/24 Range/Units 11:34 13:07 WBC 8.6 (4.5-10.0) K/mm3 RBC 4.59 (4.2-5.4) M/mm3 Hgb 13.0 (12.0-15.0) g/dL Hct 40.2 (37.0-47.0) % MCV 87.6 (80-100) fl MCH 28.3 (26-34) pg MCHC 32.3 (32-36) g/dl RDW 12.2 (11.5-14.5) % Plt Count 231 (150-375) k/mm3 MPV 10.3 (7.4-10.4) fl Immature Gran % (Auto) 0.3 (0-0.5) % Neut % (Auto) 71.5 (45.5-73.1) % Lymph % (Auto) 20.7 (18.3-44.2) % [place] % (Auto) 5.6 (2.6-8.5) % Eos % (Auto) 1.6 (0-4.4) % Baso % (Auto) 0.3 (0.2-1.2) % Lymph # (Auto) 1.79 (0.9-3.2) K/mm3 [place] # (Auto) 0.5 (0.1-0.6) K/mm3 Eos # (Auto) 0.1 (0-0.3) K/mm3 Baso # (Auto) 0.0 (0.0-0.1) K/mm3 Abs Immat Gran (auto) 0.03 (0.00-0.031) K/mm3 Absolute Neuts (auto) 6.2 (1.3-6.7) K/mm3 Absolute Nucleated RBC 0.000 (0.0-0.012) K/mm3 Nucleated RBC % 0.0 (0.0-0.2) % Sodium 142 (137-145) mmol/L Potassium 4.0 (3.4-5.0) mmol/L Chloride 108 H (98-107) mmol/L Carbon Dioxide 24 (22-30) mmol/L Anion Gap 10 (4-12) mmol/L BUN 20 H (7-17) mg/dL Creatinine 0.89 (0.7-1.0) mg/dL Estim Creat Clear Calc 92 ml/min Estimated GFR > 60 (59 - ) Glucose 105 (65-110) mg/dL Calcium 9.3 (8.4-10.2) mg/dL Total Bilirubin 1.2 (0.2-1.3) mg/dL AST 20 (14-36) U/L ALT 17 (6-35) U/L Alkaline Phosphatase 55 (38-126) U/L Total Protein 7.0 (6.3-8.2) g/dL Albumin 4.0 (3.5-5.1) g/dL Lipase 244 (23-300) U/L Urine Color Yellow (Yellow) Urine Appearance Turbid H (Clear) Urine pH 8.0 (5.0-9.0) Ur Specific [place] 1.013 (1.001-1.035) Urine Protein Negative (Negative) mg/dL Urine Glucose (UA) Negative (Negative) mg/dL Urine Ketones Negative (Negative) mg/dL Ur Blood (Man) Negative (Negative) Urine Nitrate Negative (Negative) Urine Bilirubin Negative (Negative) Urine Urobilinogen 0.2 (<2.0) mg/dL Leukocyte Esterase Rfl 2+ H (Negative) USAMA/UL Urine RBC 0-2 (0-2) /hpf Urine WBC 21-50 H (0-3) /hpf Ur Squamous Epith Cells Few (Few) /hpf Urine Bacteria 4+ H /hpf Urine Casts 0-2 Discharge Plan Discharge Clinical Impression: Kidney stone Patient Disposition: Home, Self-Care Condition: Stable
--- NOTE | 2024-03-25 16:34 | P.HP_ITS ---
History of Present Illness History of Present Illness Consent: Risks, benefits, and alternatives have been discussed and questions answered. Patient agrees to proceed with procedure. Chief complaint: R flank pain, hx of kidney stones Narrative: Linnette Rice is a 43 year old female Who had 1 ureteral stone requiring endoscopic extraction in June 2023. She presents the emergency department with acute right flank pain, nausea vomiting and irritable voiding. This is reminiscent of her prior stone. She has had no fever chills or gross hematuria. CT imaging demonstrates an obstructing 5-6 mm right distal ureteral calculus. Pain has been difficult to manage in after discussion of therapeutic options including medical expulsive therapy and endoscopic intervention she has elected for the latter. She is aware that we likely will leave a indwelling ureteral stent. She is aware the risk including, not limited to, need for additional procedures and ureteral injury. 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 Code status: Full code. Smoking packs per day: 1 Smoking cigarettes per day: 20.0 Years smoked: 15 Smoking pack-years: 15.00 Smoking status: Current every day smoker Additional smoking assessment comments: fills little pod once every two days Alcohol intake: former Substance use: current Substance use type: does not use Do You Feel Safe in your Home?: Yes Lack of Transportation: No Lack of Food: Never True Current Housing: I Have Housing Concerned About Future Housing: No Difficulty Paying Gas/Electric Bills: No Difficulty Paying for Meds: No Currently Unemployed: No Education: Trade/Vocational Certificate Difficulty w/ Childcare or Family Care: No Living arrangements: with family Additional living arrangements comments: Lives with spouse. They have 2 children. Occupation/Education: occupation Spiritual care concerns: No Meds Home Medications and Allergies Home Medications ?Medication ?Instructions ?Recorded ?Confirmed ?Type benzonatate 100 mg capsule 100 mg PO TID PRN cough #30 caps 03/02/24 03/02/24 Rx Allergies Allergy/AdvReac Type Severity Reaction Status Date / Time Penicillins Allergy Unknown UNKNOWN Verified 03/25/24 10:07 morphine AdvReac Mild Itching Verified 03/25/24 10:07 Vital Signs Vital Signs - 24 hr 03/25/24 10:03 Temperature 98.6 F Pulse Rate 90 Respiratory Rate 18 Blood Pressure 116/85 Pulse Oximetry 99 Oxygen Delivery Room Air Exam Const: General: no acute distress Resp: Effort & Inspection: normal respiratory effort GI: Inspection: non-distended GI Palp: No abdominal tenderness and No Guarding due to palpation present (GI) Auscultation: normal bowel sounds Assessment and Plan Assessment and plan (1) Right ureteral calculus: Code(s): N20.1 - Calculus of ureter Status: Acute Assessment and Plan: * Cystoscopy, right ureteroscopy with stone extraction, possible laser lithotripsy, retrograde pyelography and stent placement
--- NOTE | 2024-03-25 16:36 | WPDHPUPDATE1 ---
History and Physical Update Update Date/Time: 03/25/24 16:36 History and Physical has been reviewed, including an updated exam of the patient. There are NO changes in the patient's condition. Risks, benefits, and alternatives have been discussed and questions answered. Patient agrees to proceed with procedure.
--- OUTSIDE RECORDS SUMMARY | 2024-03-25 16:45 | XMS_ITS | Clinical Summary ---
Author Organization [facility] Address [facility]6 [facility]. [place], [place] [address] [place] [address] Care Team Providers Care Coil Former Name Role Phone Phu Valladares DO Primary [...] Comments Blood Pressure 108/76 04/06/2020 1:21 PM PLANT MAINTENANCE WORKER Pulse 85 04/06/2020 1:21 PM PLANT MAINTENANCE WORKER Temperature 36.8 ??C (98.2 ??F) 04/06/2020 1:21 PM CS T Respiratory Rate 16 04/06/2020 1:21 PM PLANT MAINTENANCE WORKER Oxygen Saturation 97% 04/06/2020 1:21 PM PLANT MAINTENANCE WORKER Inhaled Oxygen Concentration - - Weight 112.5 kg (248 lb) 04/06/2020 1:21 PM PLANT MAINTENANCE WORKER Height 172.1 cm (5' 7.75 ) 04/06/2020 1:21 PM CS T Body Mass Index 37.99 04/06/2020 1:21 PM PLANT MAINTENANCE WORKER Plan of Treatment Health Maintenance Due Date [...] Most Recently Relevant to Health Maintenance Insurance [facility] Care Teams Coil Former Relationship Specialty Start Date End Date Phu Valladares DO [address] [place] [address] PCP - General FAMILY PRACTICE 04/06/20
--- OUTSIDE RECORDS SUMMARY | 2024-03-25 16:45 | XMS_ITS | Continuity of Care Document ---
Author Name [facility] Organization [facility] Care Team Providers Care Java Technical Manager Name Role Phone [facility] Unavailable Unavailable Problems Combined list of problems from Department of Defense and Veterans [facility] facilities. It does not include entries that were removed or entered in error. Problem Status Onset Date Problem Type Date of Resolution Comments Source Diagnosis: ICD-10-CM Z63.6 Dependent relative needing care at home Active Diagnosis [facility] Diagnosis: ICD-10-CM Z63.79 Other stressful life events affecting family and household Active Diagnosis [facility] Encounters Combined list of: 1) Encounters from Department of Veterans Affairs facilities going back up to thelast 18 months. 2) Encounters from the Department of [facility] facilities going back up to 280 months. Location Location Details Encounter Type Encounter Number Reason For Visit Attending Provider ADM Date DC Date Status Disposition Source [facility] HLTH BHV ASSMT/REAS SESSMENT [id number] Diagnos is: ICD-10- CM Z63.6 Depende nt relativ e needing care at home
NOEMÍ PEREZ 02/07 [facility] PROGRAM INTAKE ASSESSMENT [id number] Diagnos is: ICD-10- CM Z63.6 Depende nt relativ e needing care at home
Rebekah COLE 03/06 [facility] HC PRO PHONE CALL 5-10 MIN [id number] Diagnos is: ICD-10- CM Z63.79 Other stressf ul life events affecti ng family and househo ld
EFREN SIMON 03/14 [facility] Encounter [id number] EDA BIRCH L 03/20 [facility] Outpatient Encounter [id number] 03/26 [facility] ASSMT/REAS SESSMENT [id number] Diagnos is: ICD-10- CM Z63.6 Depende nt relativ e needing care at home
SEO,STA CY L 07/31 [facility] Outpatient Encounter [id number] 11/26 [facility] ASSMT/REAS SESSMENT [id number] Diagnos is: ICD-10- CM Z63.6 Depende nt relativ e needing care at home
SEO,STA CY L 12/02 [facility] Outpatient Encounter [id number] 03/12 [facility] ASSMT/REAS SESSMENT [id number] Diagnos is: ICD-10- CM Z63.6 Depende nt relativ e needing care at home
SEO,STA CY L 03/17 [facility]
--- OUTSIDE RECORDS SUMMARY | 2024-03-25 16:45 | XMS_ITS | Encounter Summary ---
Author Organization [facility] Address [address] [place] [address]. [place], [place] [address] [place] [address] Care Team Providers Care Middle Card Tender Name Role Phone Phu Valladares DO Primary Care Provider + Encounter Details Date Type Department Care Team ([facility] st Contact Info) Description 04/24/2020 [employer] [facility] Health Information Management [address] [place] [address] [place], [facility] Provider Proxy Access Request Social History Tobacco [...] COVID-19? No / Unsure 04/06/2020 1:02 PM FOREIGN LANGUAGE STENOGRAPHER documented as of this encounter Plan of Treatment Not on file documented as of this encounter Visit Diagnoses Not on filedocumented in this encounter Additional Health Concerns Infection Onset Date Last Indicated Resolved Time COVID-19 Rule Out 03/01/2021 03/01/2021 03/01/2021 11:36 AM FOREIGN LANGUAGE STENOGRAPHER COVID-19 Rule Out 03/01/2021 03/01/2021 03/02/2021 6:37 PM FOREIGN LANGUAGE STENOGRAPHER COVID-19 Rule Out 03/05/2021 03/05/2021 03/12/2021 12:32 AM FOREIGN LANGUAGE STENOGRAPHER documented as of this encounter Care Teams Middle Card Tender Relationship Specialty Start Date End Date Phu Valladares DO [address] [place] [address] PCP - General FAMILY PRACTICE 04/06/20 documented as of this encounter
--- OUTSIDE RECORDS SUMMARY | 2024-03-25 16:45 | XMS_ITS | Encounter Summary ---
Author Organization [facility] Address [facility]6 [facility]. [place], [place] [id number] [place] [address] Care Team Providers Care Demurrage Clerk Name Role Phone Phu Valladares DO Primary Care Provider + Encounter Details Date Type Department Care Team (Late st Contact Info) Description 12/05/2021 Jajah Message [employer] [facility] Family & Internal Medicine [address] [phone] [employer], [facility] Provider results Social History Tobacco Use Types [...] Total Score: 0 03/01/19 22 9:55 AM LICENSED RETAIL SUPERVISOR documented as of this encounter Care Teams Demurrage Clerk Relationship Specialty Start Date End Date Phu Valladares DO [address] [place] [id number] PCP - General FAMILY PRACTICE 04/06/20 documented as of this encounter
[2024-03-25] MEDS: LACTATED RINGERS 1,000 ML 30 ML IV CONT ×2 (17:00→18:00)
--- NOTE | 2024-03-25 17:00 | WPDANESEPPF ---
Anes - Initial Pre Proc Eval Procedure: Operation Date: 03/25/24 16:30 Proposed Procedures p Cysto, RPG, Stone Ext, Stent Placement(Right) - Andrew Spencer MD Date/Time: 03/25/24 17:00 Surgeon: Andrew Spencer MD Pre Op Diagnosis: right ureteral calculi Pre Op Diagnosis: R flank pain, hx of kidney stones Patient Data Age: 43 Gender: F Height: 1.78 m Weight: 104.1 kg Last Vital Signs Temp 36.8 C 03/25/24 16:34 Pulse 75 03/25/24 16:34 Resp 16 03/25/24 16:34 BP 135/88 03/25/24 16:34 Pulse Ox 99 03/25/24 16:34 O2 Del Method Room Air 03/25/24 10:03 Allergies Allergy/AdvReac Type Severity Reaction Status Date / Time Penicillins Allergy Unknown UNKNOWN Verified 03/25/24 10:07 morphine AdvReac Mild Itching Verified 03/25/24 10:07 Home Medications ?Medication ?Instructions ?Recorded ?Confirmed ?Type benzonatate 100 mg capsule 100 mg PO TID PRN cough #30 caps 03/02/24 03/02/24 Rx Laboratory Tests 03/25/24 03/25/24 11:34 13:07 WBC 8.6 K/mm3 (4.5-10.0) RBC 4.59 M/mm3 (4.2-5.4) Hgb 13.0 g/dL (12.0-15.0) Hct 40.2 % (37.0-47.0) MCV 87.6 fl (80-100) MCH 28.3 pg (26-34) MCHC 32.3 g/dl (32-36) RDW 12.2 % (11.5-14.5) Plt Count 231 k/mm3 (150-375) MPV 10.3 fl (7.4-10.4) Immature Gran % (Auto) 0.3 % (0-0.5) Neut % (Auto) 71.5 % (45.5-73.1) Lymph % (Auto) 20.7 % (18.3-44.2) Elliott % (Auto) 5.6 % (2.6-8.5) Eos % (Auto) 1.6 % (0-4.4) Baso % (Auto) 0.3 % (0.2-1.2) Lymph # (Auto) 1.79 K/mm3 (0.9-3.2) Elliott # (Auto) 0.5 K/mm3 (0.1-0.6) Eos # (Auto) 0.1 K/mm3 (0-0.3) Baso # (Auto) 0.0 K/mm3 (0.0-0.1) Abs Immat Gran (auto) 0.03 K/mm3 (0.00-0.031) Absolute Neuts (auto) 6.2 K/mm3 (1.3-6.7) Absolute Nucleated RBC 0.000 K/mm3 (0.0-0.012) Nucleated RBC % 0.0 % (0.0-0.2) Sodium 142 mmol/L (137-145) Potassium 4.0 mmol/L (3.4-5.0) Chloride 108 H mmol/L (98-107) Carbon Dioxide 24 mmol/L (22-30) Anion Gap 10 mmol/L (4-12) BUN 20 H mg/dL (7-17) Creatinine 0.89 mg/dL (0.7-1.0) Estim Creat Clear Calc 92 ml/min Estimated GFR > 60 (59 - ) Glucose 105 mg/dL (65-110) Calcium 9.3 mg/dL (8.4-10.2) Total Bilirubin 1.2 mg/dL (0.2-1.3) AST 20 U/L (14-36) ALT 17 U/L (6-35) Alkaline Phosphatase 55 U/L (38-126) Total Protein 7.0 g/dL (6.3-8.2) Albumin 4.0 g/dL (3.5-5.1) Lipase 244 U/L (23-300) Urine Color Yellow (Yellow) Urine Appearance Turbid H (Clear) Urine pH 8.0 (5.0-9.0) Ur Specific [place] 1.013 (1.001-1.035) Urine Protein Negative mg/dL (Negative) Urine Glucose (UA) Negative mg/dL (Negative) Urine Ketones Negative mg/dL (Negative) Ur Blood (Man) Negative (Negative) Urine Nitrate Negative (Negative) Urine Bilirubin Negative (Negative) Urine Urobilinogen 0.2 mg/dL (<2.0) Leukocyte Esterase Rfl 2+ H USAMA/UL (Negative) Urine RBC 0-2 /hpf (0-2) Urine WBC 21-50 H /hpf (0-3) Ur Squamous Epith Cells Few /hpf (Few) Urine Bacteria 4+ H /hpf Urine Casts 0-2 : patient denies (s/p hysterectomy) Patient hx anesthesia problems: none Family hx anesthesia problems: none Prior surgeries: hysterectomy, BSO Results Review: All pre-operative results and documents have been reviewed as part of the pre-operative evaluation. [facility] Past Medical History Medical History Acute pancreatitis Endometriosis Kidney stones Chondromalacia of both patellae Vaping nicotine dependence, non-tobacco product Surgical History Surgical History History of left oophorectomy (03/2020) Ovarian cyst History of right salpingo-oophorectomy (2003) Ovarian cyst History of vaginal hysterectomy (2011) History of laparoscopy endometriosis Family History Family History Mother Hypertension Cerebrovascular accident, Onset Age: 58 Small cell carcinoma Father Hypertension Social History Social History Social History: Surrogate medical decision maker: Jai Rice, spouse. Code status: Full code. Smoking packs per day: 1 Smoking cigarettes per day: 20.0 Years smoked: 15 Smoking pack-years: 15.00 Smoking status: Current every day smoker Additional smoking assessment comments: fills little pod once every two days Alcohol intake: former Substance use: current Substance use type: does not use Do You Feel Safe in your Home?: Yes Lack of Transportation: No Lack of Food: Never True Current Housing: I Have Housing Concerned About Future Housing: No Difficulty Paying Gas/Electric Bills: No Difficulty Paying for Meds: No Currently Unemployed: No Education: Trade/Vocational Certificate Difficulty w/ Childcare or Family Care: No Living arrangements: with family Additional living arrangements comments: Lives with spouse. They have 2 children. Occupation/Education: occupation Spiritual care concerns: No Anes - Eval Final PreProcedure Day of Procedure 03/25/24 17:00 Patient weight: obese Heart: regular rate and rhythm Lungs: normal air movement Airway: Mallampati scale class II Neurological: alert and oriented Last oral intake: >/= 8 hours ASA classification: II Emergent: yes Anesthetic plan: proceed Anesthesia type and monitoring: general Results Review: All pre-operative results and documents have been reviewed as part of the pre-operative evaluation. Informed Consent: The patient's anesthetic plan and its attendant risks and benefits were discussed with the patient/family/POA. Questions were solicited and answers provided to the satisfaction of the patient/family/POA.
[2024-03-25] MEDS: LIDOCAINE 2% GEL UROJET 10 ML PKG MUCOUS MEM (17:23)
--- NOTE | 2024-03-25 17:30 | W.PM.PROC2 ---
Procedure Note - Detailed Date of Procedure 03/25/24 Pre-op Diagnosis Right distal ureteral stone Post-op Diagnosis Same Procedure Performed Cystoscopy, right ureteroscopy with stone extraction, right ureteral stent placement Surgeon Andrew Spencer MD Anesthesia General Description of Procedure The patient was brought to the operative suite where she is prepped and draped in a routine sterile fashion while in the dorsal lithotomy position after the uneventful induction of a general LMA anesthetic. A 19F rigid cystoscope was placed in the bladder. The patient had no evidence of urethral stricture or bladder neck contracture. The bladder mucosa was endoscopically normal without hyperemia or neoplasm. There was a single, orthotopic ureteral orifice bilaterally. A 0.035 glidewire was advanced into the right renal pelvis under fluoroscopy. The distal ureter was dilated with an 8F/10F ureteral dilator. Ureteroscopy was undertaken with a short tapered semi-rigid ureteroscope. There was mild ureteral edema. With ureteroscopy I was able to extract the stone using a 1.9F Escape disposable stone basket. Due to the extent of this manipulation I did place a 4.8F double-J ureteral stent. The proximal coil of the stent was confirmed to be in the renal pelvis and the distal coil in the bladder. The patient's bladder was emptied and she was taken to the recovery room having tolerated this procedure well. Drains Yes Packing No Pathology Yes Complications No immediate complications
[2024-03-25] MEDS: oxyCODONE HCL (*CRX) 5 MG TAB IR PO (18:25)
== END 2024-03-25 18:55 | disposition home or self-care (01) ==
LOC: ANHED 12:17 → ANHSURGERY 16:43
PROVIDERS: Physician Assistant; Emergency Provider Emergency Medicine; PCP Family Medicine; Visit Provider Urology
PROC: (CPT 52352; principal; 2024-03-25 16:30)
DX: N20.1 Calculus of ureter (principal); N80.9 Endometriosis, unspecified; F17.290 Nicotine dependence, other tobacco product, uncomplicated; E66.9 Obesity, unspecified; Z68.32 Body mass index [BMI] 32.0-32.9, adult; Z98.890 Other specified postprocedural states; Z80.1 Family history of malignant neoplasm of trachea, bronchus and lung; Z82.49 Family history of ischemic heart disease and other diseases of the circulatory system
CPT/HCPCS: 52352; 52332; 36415; 74176; 74420; 80053; 81001; 82365; 83690; 85025; 87077; 87086; 87186; 88300; 96365; 96375; 99285; A9270; C1769; C2617; J0696; J1100; J1171; J1885; J2003; J2250; J2405; J2704; J3010; J7120

== ENCOUNTER 2024-04-06 15:27 | Outpatient (CLI) | payer BC, SELFPAY ==
--- NOTE | ~2024-04-06 | XR_ITS ---
Exam: Abdomen 1V HISTORY: Calculus of left ureter COMPARISON: Reference is made to CT examination of the abdomen and pelvis dated 03/25/2024. Reference is also made to intraoperative fluoroscopy, performed the same day. TECHNIQUE: Supine images of the abdomen FINDINGS: Bowel gas pattern is non-obstructive. There is no free air or deep sulci. Right sided double-J stent is identified. Interval migration of the right sided double-J stent with the distal pigtail projecting over the righ t ureterovesicular junction, rather than coiled within the bladder, possibly secondary to positioning . Innumerable 2 and 3 mm calculi are detected projecting over the left kidney, without discrete calculu s projecting over the expected course of the left ureter (as described in the patient's history). Lung bases are unremarkable. IMPRESSION: Nonspecific, nonobstructive bowel gas pattern. Interval retrograde migration of the right sided double-J stent, possibly secondary to positioning. Innumerable 2 and 3 mm calculi projecting over the left kidney without a discrete calculus projecting over the expected course of the left ureter (as described in the patient's history). Reviewed, dictated and finalized at location A. OTIONAL DEMONSTRATOR IMPRESSION: Nonspecific, nonobstructive bowel gas pattern. Interval retrograde migration of the right sided double-J stent, possibly secon margaux to positioning. Innumerable 2 and 3 mm calculi projecting over the left kidney without a discre te calculus projecting over the expected course of the left ureter (as describe d in the patient's history).
== END 2024-04-06 15:28 | disposition home or self-care (01) ==
LOC: MICIMG 15:28
PROVIDERS: PCP Family Medicine; Visit Provider Urology
DX: T83.192A Other mechanical complication of indwelling ureteral stent, initial encounter (principal); N20.1 Calculus of ureter
CPT/HCPCS: 74018

== ENCOUNTER 2024-04-07 00:02 | Day surgery (SDC) | payer BC, SELFPAY ==
--- NOTE | 2024-04-06 18:13 | PC.NURSE ---
Report to the Outpatient Waiting Room, entrance under the green pavilion located off [facility], at time 1330 on date 04/07/24. Planned Procedure Time: 1530 Time changes happen often and if your time is changed the preop area will call you the afternoon before. - You and your visitor will be asked to self-screen and do not enter if you have any COVID symptoms. Please call surgeon if you need to reschedule. - A mask is optional within the hospital at this time. Patients may have clear liquids (water, carbonated beverages, clear teas, apple juice) until 3 hours prior to surgery with a maximum of 20 ounces. 1230 - No food from midnight until time of surgery and no smoking, or chewing tobacco (or any form of nicotine). No chewing gum, candy or mints. - Infants may have breast milk until 4 hours before surgery, infant formula 6 hours prior to surgery. - Children will be allowed to drink immediately following surgery.? If applicable, please bring a bottle or sippy cup to assist with drinking. Juice, water, soda, and popsicles are readily available.? For infants on formula, please bring formula the day of surgery.? Pacifiers are allowed. Take only the following medications with a SIP of water on the morning of surgery: antibiotic DO NOT STOP ANY OF YOUR OTHER PRESCRIPTION MEDICATIONS PRIOR TO SURGERY EXCEPT THE FOLLOWING Hold all vitamins and supplements for 3 days per anesthesiologist. Medications to discontinue per physician toradol Date to take last dose 04/06/24 Please no make-up, nail slovenian, hairspray, perfume, deodorant, or body powder the day of surgery.? No jewelry (including any body piercings) or valuables the day of surgery, leave them at home.? Please take a shower or bath the night before, or the morning of, surgery with an antibacterial soap.? Wear comfortable, loose fitting clothing.? Children are encouraged to wear pajamas. - Jewelry must be removed prior to entering the operating room.? Rings and piercings that are not removed may be cut off. - The hospital will not accept responsibility for valuables.? - Please leave all valuables, including medications, at home the day of surgery. If you are going home after surgery, a licensed locomotive driver must drive you home.? - NO public transportation without another adult if you receive anesthesia. - We recommend that an adult stay with you for 24 hours following discharge. - We also recommend that you do not drive, make important decision, drink alcoholic beverages, or take any drugs that were not prescribed by your health care provider for at least 24 hours after your discharge time. For Pediatric surgeries, we recommend two adults accompany the child home. Follow any additional instructions given to you from your surgeon. Telephone instructions given to Patient- Linnette Rice and asked if any additional questions and then verbalized understanding. Patient advised to call surgeon office or pre surgery nurse liaison [phone] if any additional questions.
[2024-04-06 18:17] VITALS: BMI 33.8
[2024-04-07] VITALS (9 sets, daily range): BP systolic 94–135; BP diastolic 64–90; PULSE 66–92; RESP 12–20; TEMP 36.3–36.9; O2SAT 97–100
--- NOTE | ~2024-04-07 | XR_ITS ---
EXAMINATION: XR fluoroscopy no charge DATE: 04/07/2024 15:50 INDICATION: Right ureteral stent removal TECHNIQUE: 4 fluoroscopic images of the abdomen and pelvis were obtained during procedure performed eugenio Spencer. Radiologist was not present for the imaging or procedure. The amount of fluoroscopy lynn e used during this procedure was 0.1 minutes. COMPARISON: KUB dated 03/27/2024 FINDINGS/IMPRESSION: Removal of the previously seen right internal ureteral stent. See procedure note for further detail. Reviewed, dictated and finalized at location A. SPOTTER
--- OUTSIDE RECORDS SUMMARY | 2024-04-07 00:05 | XMS_ITS | Encounter Summary ---
Author Organization [facility] Address [address] [place] [address] Care Team Providers Care Filing And Polishing Supervisor Name Role Phone Phu Valladares DO Primary Care Provider + Encounter Details Date Type Department Care Team (Late st Contact Info) Description 04/24/2020 Next[employer] Message [employer] [facility] [address] [place] [id number] [employer], [facility] Provider Proxy Access Request Social [...] COVID-19? No / Unsure 04/06/2020 1:02 PM COATING MACHINE FEEDER documented as of this encounter Plan of Treatment Not on file documented as of this encounter Visit Diagnoses Not on filedocumented in this encounter Additional Health Concerns Infection Onset Date Last Indicated Resolved Time COVID-19 Rule Out 03/01/2021 03/01/2021 03/01/2021 11:36 AM COATING MACHINE FEEDER COVID-19 Rule Out 03/01/2021 03/01/2021 03/02/2021 6:37 PM COATING MACHINE FEEDER COVID-19 Rule Out 03/05/2021 03/05/2021 03/12/2021 12:32 AM COATING MACHINE FEEDER documented as of this encounter Care Teams Filing And Polishing Supervisor Relationship Specialty Start Date End Date Phu Valladares DO [address] [place] [place] [id number] PCP - General FAMILY PRACTICE 04/06/20 documented as of this encounter
--- OUTSIDE RECORDS SUMMARY | 2024-04-07 00:05 | XMS_ITS | Continuity of Care Document ---
Author Name [facility] Organization [facility] Care Team Providers Care Frame Bender Name Role Phone [facility] Unavailable Unavailable Problems Combined list of problems from Department of Defense and [facility] facilities. It does not include entries that were removed or entered in error. Problem Status Onset Date Problem Type Date of Resolution Comments Source Diagnosis: ICD-10-CM Z63.6 Dependent relative needing care at home Active Diagnosis [facility] Diagnosis: ICD-10-CM Z63.79 Other stressful life events affecting family and household Active Diagnosis [facility] Encounters Combined list of: 1) Encounters from Department of [facility] facilities going backup to the last 18 months, not all VA inpatient encounters are included; 2) Encounters from the Department of [facility] facilities going backup to 280 months. Location Location Details Encounter Type Encounter Number Reason For Visit Attending Provider ADM Date DC Date Status [facility] [id number] Diagnos is: ICD-10- CM Z63.6 Depende nt relativ e needing care at home NOEMÍ PEREZ 02/07 [facility] PROGRAM INTAKE ASSESSMENT [id number] Diagnos is: ICD-10- CM Z63.6 Depende nt relativ e needing care at home Rebekah COLE 03/06 [facility] HC PRO PHONE CALL 5-10 MIN [id number] Diagnos is: ICD-10- CM Z63.79 Other stressf ul life events affecti ng family and househo EFREN Hunt 03/14 [facility] Outpatient Encounter [id number] EDA BIRCH L 03/20 [facility] Outpatient Encounter [id number] 03/26 [facility] ASSMT/REAS SESSMENT [id number] Diagnos is: ICD-10- CM Z63.6 Depende nt relativ e needing care at home SEO,STA CY L 07/31 [facility] Outpatient Encounter [id number] 11/26 [facility] ASSMT/REAS SESSMENT [id number] Diagnos is: ICD-10- CM Z63.6 Depende nt relativ e needing care at home SEO,STA CY L 12/02 [facility] Outpatient Encounter [id number] 03/12 [facility] ASSMT/REAS SESSMENT [id number] Diagnos is: ICD-10- CM Z63.6 Depende nt relativ e needing care at home SEO,STA CY L 03/17 [facility] N
--- OUTSIDE RECORDS SUMMARY | 2024-04-07 00:05 | XMS_ITS | Clinical Summary ---
Author Organization [facility] Address [address] [place] [address] Care Team Providers Care Physicist Light And Optics Name Role Phone Phu Valladares Linnette LEE Primary Care Provider + Allergies Active Allergy [...] Comments Blood Pressure 108/76 04/06/2020 1:21 PM STAFF NUCLEAR MEDICINE TECHNOLOGIST Pulse 85 04/06/2020 1:21 PM STAFF NUCLEAR MEDICINE TECHNOLOGIST Temperature 36.8 C (98.2 F) 04/06/2020 1:21 PM STAFF NUCLEAR MEDICINE TECHNOLOGIST Respiratory Rate 16 04/06/2020 1:21 PM STAFF NUCLEAR MEDICINE TECHNOLOGIST Oxygen Saturation 97% 04/06/2020 1:21 PM STAFF NUCLEAR MEDICINE TECHNOLOGIST Inhaled Oxygen Concentration - - Weight 112.5 kg (248 lb) 04/06/2020 1:21 PM STAFF NUCLEAR MEDICINE TECHNOLOGIST Height 172.1 cm (5' 7.75 ) 04/06/2020 1:21 PM CS T Body Mass Index 37.99 04/06/2020 1:21 PM STAFF NUCLEAR MEDICINE TECHNOLOGIST Plan of Treatment Health Maintenance Due Date Last Done Comments Annual Physical 10/19/1982 Pneumococcal Vaccine: Pediatrics (0 to 5 Years) and At-Risk Patients (6 to 64 Years) (1 of 2 - PCV) 10/19/1985 Hepatitis C 10/19/1997 Hepatitis B Vaccines (1 of 3 - 19+ 3-dose series) 10/19/1998 COVID-19 Vaccine ( season) 2023 Mammogram Screening 11/23/2023 11/22/2021, 10/23/2020, [...] Most Recently Relevant to Health Maintenance Insurance [facility] Care Teams Physicist Light And Optics Relationship Specialty Start Date End Date Phu Valladares DO [facility] [place] [address] PCP - General FAMILY PRACTICE 04/06/20
--- OUTSIDE RECORDS SUMMARY | 2024-04-07 00:05 | XMS_ITS | Encounter Summary ---
Author Organization [facility] Address [address] [place] [address] Care Team Providers Care Flitch Hanger Name Role Phone Phu Valladares Primary Care Provider + Encounter Details Date Type Department Care Team (Late st Contact Info) Description 12/05/2021 [employer] Message [facility] Family & Internal Medicine [address] [phone] [facility] Provider results Social History Tobacco [...] Noted Time PHQ-9 Depression Total Score: 0 01/06/20 22 9:55 AM SILVERWARE SUPERVISOR documented as of this encounter Care Teams Flitch Hanger Relationship Specialty Start Date End Date Phu Valladares DO [address] [place] [phone] PCP - General FAMILY PRACTICE 04/06/20 documented as of this encounter
[2024-04-07] MEDS: LACTATED RINGERS 1,000 ML 30 ML IV CONT ×2 (14:00→16:15)
[2024-04-07] MEDS: fentaNYL CITRATE INJ (*CRX) 100 MCG/2 ML VIAL 50 MCG IV PUSH (14:05)
--- NOTE | 2024-04-07 15:01 | WPDHPUPDATE1 ---
History and Physical Update Update Date/Time: 04/07/24 15:01 History and Physical has been reviewed, including an updated exam of the patient. There are NO changes in the patient's condition. Risks, benefits, and alternatives have been discussed and questions answered. Patient agrees to proceed with procedure.
--- NOTE | 2024-04-07 15:21 | WPDANESEPPF ---
Anes - Initial Pre Proc Eval Procedure: Operation Date: 04/07/24 15:30 Proposed Procedures p Cystoscopy Right Ureteroscopy, Right Stent Placement - Andrew Spencer MD Date/Time: 04/07/24 15:21 Surgeon: Andrew Spencer MD Pre Op Diagnosis: Migrated Right Ureteral Stent Patient Data Age: 43 Gender: F Height: 1.75 m Weight: 104.1 kg Last Vital Signs Temp 98.4 F 04/07/24 14:00 Pulse 88 04/07/24 14:00 Resp 16 04/07/24 14:00 BP 121/74 04/07/24 14:00 Pulse Ox 100 04/07/24 14:00 O2 Del Method Room Air 04/07/24 14:00 Allergies Allergy/AdvReac Type Severity Reaction Status Date / Time Penicillins Allergy Unknown UNKNOWN Verified 04/07/24 14:00 morphine AdvReac Mild Itching Verified 04/07/24 14:00 Home Medications ?Medication ?Instructions ?Recorded ?Confirmed ?Type ketorolac 10 mg tablet 10 mg PO Q6H 5 days #20 tabs 03/25/24 04/06/24 Rx sulfamethoxazole 800 1 tablet PO Q12H 04/06/24 04/06/24 History mg-trimethoprim 160 mg tablet Patient hx anesthesia problems: none Family hx anesthesia problems: none Results Review: All pre-operative results and documents have been reviewed as part of the pre-operative evaluation. [facility] Past Medical History Medical History Acute pancreatitis Endometriosis Kidney stones Chondromalacia of both patellae Vaping nicotine dependence, non-tobacco product Surgical History Surgical History History of left oophorectomy (03/2020) Ovarian cyst History of right salpingo-oophorectomy (2003) Ovarian cyst History of vaginal hysterectomy (2011) History of laparoscopy endometriosis Family History Family History Mother Hypertension Cerebrovascular accident, Onset Age: 58 Small cell carcinoma Father Hypertension Social History Social History Social History: Surrogate medical decision maker: Jai Rice, spouse. Code status: Full code. Smoking packs per day: 1 Smoking cigarettes per day: 20.0 Years smoked: 15 Smoking pack-years: 15.00 Smoking status: Current every day smoker Tobacco type: e-cigarettes/vaping Additional smoking assessment comments: fills little pod once every two days Alcohol intake: former Substance use: current Substance use type: marijuana Other substance usage details: smoking/edibles- couple times a month Do You Feel Safe in your Home?: Yes Lack of Transportation: No Lack of Food: Never True Current Housing: I Have Housing Concerned About Future Housing: No Difficulty Paying Gas/Electric Bills: No Difficulty Paying for Meds: No Currently Unemployed: No Education: Trade/Vocational Certificate Difficulty w/ Childcare or Family Care: No Living arrangements: with family Additional living arrangements comments: Lives with spouse. They have 2 children. Occupation/Education: occupation Spiritual care concerns: No Anes - Eval Final PreProcedure Day of Procedure 04/07/24 15:21 Patient weight: obese Lungs: normal air movement Airway: Mallampati scale class II Neurological: alert and oriented Last oral intake: >/= 8 hours ASA classification: II Emergent: yes Anesthetic plan: proceed Anesthesia type and monitoring: general and standard monitoring Results Review: All pre-operative results and documents have been reviewed as part of the pre-operative evaluation. Pt vapes daily. Obesity, BMI 33. Informed Consent: The patient's anesthetic plan and its attendant risks and benefits were discussed with the patient/family/POA. Questions were solicited and answers provided to the satisfaction of the patient/family/POA.
[2024-04-07] MEDS: ceFAZolin 2 GM/D5W 50 ML 2 GM/50 ML BAG IVPB (15:26)
[2024-04-07] MEDS: LIDOCAINE 2% GEL UROJET 10 ML PKG MUCOUS MEM (15:37)
[2024-04-07] MEDS: KETOROLAC 15 MG/ML VIAL (*BKC) IV PUSH (15:45)
--- NOTE | 2024-04-07 15:52 | W.PM.PROC2 ---
Procedure Note - Detailed Date of Procedure 04/07/24 Pre-op Diagnosis Migrated Right Ureteral Stent Post-op Diagnosis Same Procedure Performed Cystoscopy, right ureteroscopy with stent extraction Surgeon Andrew Spencer MD Anesthesia General Description of Procedure Patient brought to the operative suite areas prepped draped in routine sterile fashion while in dorsal lithotomy position after the uneventful induction of a general LMA anesthetic. Cystoscopy was undertaken with a 19 F rigid cystoscope. Again, her right ureteral stent cannot be visualized from with inside the bladder. Her ureter appeared dilated so I simply proceed with right distal ureteroscopy with a short tapered semi-rigid ureteral scope. The stent was migrated proximally 2-3 6 in above the ureterovesical junction. Placed a disposable stone basket inside the lumen of the stent and open the basket. That allowed us to extracted to the external urethral meatus where standard cystoscopy and stent extraction was undertaken. This was a simple procedure. Opted not to replace the stent. The patient tolerated the procedure well was taken recovery room good condition. Drains No Packing No Pathology None sent Complications No immediate complications Disposition PACU
[2024-04-07] MEDS: fentaNYL CITRATE INJ (*CRX) 100 MCG/2 ML VIAL 25 MCG IV PUSH ×2 (16:39→16:41)
[2024-04-07] MEDS: oxyCODONE HCL (*CRX) 5 MG TAB IR PO (17:21)
== END 2024-04-07 17:52 | disposition home or self-care (01) ==
PROVIDERS: PCP Family Medicine; Visit Provider Urology
PROC: (CPT 52352; principal; 2024-04-07 15:30)
DX: T83.89XA Other specified complication of genitourinary prosthetic devices, implants and grafts, initial encounter (principal); Y83.8 Other surgical procedures as the cause of abnormal reaction of the patient, or of later complication, without mention of misadventure at the time of the procedure; F17.290 Nicotine dependence, other tobacco product, uncomplicated; F12.90 Cannabis use, unspecified, uncomplicated; E66.9 Obesity, unspecified; Z68.33 Body mass index [BMI] 33.0-33.9, adult
CPT/HCPCS: 52310; 99199; A9270; C1769; J0690; J1100; J1885; J2003; J2250; J2405; J2704; J3010; J7120; Q9966

== ENCOUNTER 2024-10-14 13:52 | Observation (INO) | payer BC, SELFPAY ==
--- OUTSIDE RECORDS SUMMARY | 2024-07-05 06:00 | XMS_ITS | Continuity of Care Document ---
Author Name [facility] Organization [facility] Care Team Providers Care Helicopter Repairer Name Role Phone [facility] Unavailable Unavailable Problems Combined list of problems from Department of Defense and Veterans [facility] facilities. It does not include entries that were removed or entered in error. Problem Status Onset Date Problem Type Date of Resolution Comments Source Diagnosis: ICD-10-CM Z63.6 Dependent relative needing care at home Active Diagnosis [facility] Encounters Combined list of: 1) Encounters from Department of Veterans Affairs facilities going backup to the last 18 months, not all [place] inpatient encounters are included; 2) Encounters from the Department of [facility] facilities going backup to 280 months. Location Location Details Encounter Type Encounter Number Reason For Visit Attending Provider ADM Date DC Date Status Disposition Source [facility] ASSMT/REAS SESSMENT [id number] Diagnos is: ICD-10- CM Z63.6 Depende nt relativ e needing care at home FAVIOLA SEO CY L 07/[address] [facility] Outpatient Encounter [id number] 11/26 [facility] ASSMT/REAS SESSMENT [id number] Diagnos is: ICD-10- CM Z63.6 Depende nt relativ e needing care at home GABBISTA CY L 12/[address] [facility] Outpatient Encounter [id number] 03/12 [facility] ASSMT/REAS SESSMENT [id number] Diagnos is: ICD-10- CM Z63.6 Depende nt relativ e needing care at home FAVIOLA SEO CY L 03/17 [facility] [place] [facility] [place] [id number] Diagnos is: ICD-10- CM Z63.6 Depende nt relativ e needing care at home FAVIOLA SEO CY L 07/05 [facility]
--- OUTSIDE RECORDS SUMMARY | 2024-07-05 06:00 | XMS_ITS | Continuity of Care Document ---
Author Name [facility] Organization [facility] Care Team Providers Care Telephone Directory Distributor Driver Name Role Phone [facility] Unavailable Unavailable Problems Combined list of problems from Department of Defense and Veterans [facility] facilities. It does not include entries that were removed or entered in error. Problem Status Onset Date Problem Type Date of Resolution Comments Source Diagnosis: ICD-10-CM Z63.6 Dependent relative needing care at home Active Diagnosis [facility] Encounters Combined list of: 1) Encounters from Department of Veterans Affairs facilities going backup to the last 18 months, not all [place] inpatient encounters are included; 2) Encounters from the Department of [facility] facilities going backup to 280 months. Location Location Details Encounter Type Encounter Number Reason For Visit Attending Provider ADM Date DC Date Status Disposition Source [facility] ASSMT/REAS SESSMENT [id number] Diagnos is: ICD-10- CM Z63.6 Depende nt relativ e needing care at home FAVIOLA SEO CY L 07/31 [facility] Outpatient Encounter [id number] 11/26 [facility] ASSMT/REAS SESSMENT [id number] Diagnos is: ICD-10- CM Z63.6 Depende nt relativ e needing care at home GABBISTA CY L 12/02 [facility] Outpatient Encounter [id number] 03/12 [facility] ASSMT/REAS SESSMENT [id number] Diagnos is: ICD-10- CM Z63.6 Depende nt relativ e needing care at home FAVIOLA SEO CY L 03/17 [facility] [place] [facility] [place] [id number] Diagnos is: ICD-10- CM Z63.6 Depende nt relativ e needing care at home FAVIOLA SEO CY L 07/05 [facility] N
--- OUTSIDE RECORDS SUMMARY | 2024-07-05 06:00 | XMS_ITS | Continuity of Care Document ---
Author Name [facility] Organization [facility] Care Team Providers Care Aircraft Mechanic Armament Name Role Phone [facility] Unavailable Unavailable Problems Combined list of problems from Department of Defense and Veterans [facility] facilities. It does not include entries that were removed or entered in error. Problem Status Onset Date Problem Type Date of Resolution Comments Source Diagnosis: ICD-10-CM Z63.6 Dependent relative needing care at home Active Diagnosis [facility] Encounters Combined list of: 1) Encounters from Department of Veterans Affairs facilities going backup to the last 18 months, not all [place] inpatient encounters are included; 2) Encounters from the Department of [facility] facilities going backup to 280 months. Location Location Details Encounter Type Encounter Number Reason For Visit Attending Provider ADM Date DC Date Status Disposition Source [facility] ASSMT/REAS SESSMENT [id number] Diagnos is: ICD-10- CM Z63.6 Depende nt relativ e needing care at home FAVIOLA SEO CY L 07/31 [facility] Outpatient Encounter [id number] 11/26 [facility] ASSMT/REAS SESSMENT [id number] Diagnos is: ICD-10- CM Z63.6 Depende nt relativ e needing care at home GABBISTA CY L 12/02 [facility] Outpatient Encounter [id number] 03/12 [facility] ASSMT/REAS SESSMENT [id number] Diagnos is: ICD-10- CM Z63.6 Depende nt relativ e needing care at home FAVIOLA SEO CY L 03/17 [facility] [place] [facility] [place] [id number] Diagnos is: ICD-10- CM Z63.6 Depende nt relativ e needing care at home FAVIOLA SEO CY L 07/05 [facility] N
[2024-10-14] VITALS (12 sets, daily range): BP systolic 96–140; BP diastolic 60–95; PULSE 87–108; RESP 14–20; TEMP 36.8–37.9; O2SAT 94–100; BMI 35.7
--- NOTE | ~2024-10-14 | CT_ITS ---
EXAMINATION: CT abdomen pelvis wo con DATE: 10/14/2024 15:07 INDICATION: Right flank pain TECHNIQUE: Computed tomography (CT) of the abdomen and pelvis was performed without intravenous contrast. Automated exposure control and iterative reconstruction technique were employed. The dose-length product was 549.35 mGy-cm. COMPARISON: CT dated 03/25/2024 FINDINGS: Lung bases are clear. Heart size normal. No pericardial or pleural effusion. Small sliding-type hiatal hernia. Diffuse hepatic steatosis. Gallbladder, pancreas and bilateral adrenal glands are normal. Splenic calcific location consistent with old granulomatous disease. There are multiple small stones s cattered throughout both kidneys, at least 10-15 in the right kidney measuring up to 5 mm and 15-20 stones in the left kidney, also measuring up to 5 mm. There is a larger 1.2 cm obstructing stone at the right ureteropelvic junction with mild right hydronephrosis. Stones more distally in either ureter. Bladder is normal. There are several bilateral hypodense renal cysts, the largest in both the left kidney measuring 2.8 cm. There are couple hypoattenuation complex proteinaceous/hemorrhagic cyst at the lower pole of the left kidney the larger measuring 1.5 cm. The uterus is not identified and has likely been surgically resected. Bowels including the appendix are normal. Small fat-containing umbilical hernia. No free intraperitoneal gas or fluid. No pathologically enlarged abdominal or pelvic lymphadenopathy. Mild lumbar and lower thoracic spondylosis. IMPRESSION: 1. Multiple bilateral renal stones with obstructing 1.2 cm stone at the right ureteropelvic junction resulting in mild right hydronephrosis. Reviewed, dictated and finalized at location A. IMPRESSION: 1. Multiple bilateral renal stones with obstructing 1.2 cm stone at the right u reteropelvic junction resulting in mild right hydronephrosis.
--- NOTE | ~2024-10-14 | XR_ITS ---
EXAMINATION: XR retrograde pyelo w/stent RT DATE: 10/14/2024 17:24 INDICATION: Right internal ureteral stent placement TECHNIQUE: Fluoroscopic images from a right internal ureteral stent placement are submitted for review. 19 seconds of fluoroscopy time. FINDINGS: There is a right double-J internal ureteral stent projecting in expected position, with proximal [place] loop at the level of the renal pelvis and distal loop in the pelvis within the bladder lumen. IMPRESSION: 1. Right internal ureteral stent placement. Please refer to real-time procedural findings for details. Reviewed, dictated and finalized at location O. IMPRESSION: 1. Right internal ureteral stent placement. Please refer to real-time procedu ral findings for details.
--- NOTE | ~2024-10-14 | XR_ITS ---
EXAMINATION: XR abdomen/kub 1V DATE: 10/14/2024 16:01 INDICATION: Right UPJ stone TECHNIQUE: A supine view of the abdomen on 2 radiographs was obtained. COMPARISON: CT dated 10/14/2024 FINDINGS: The 1.2 cm stone at right ureteropelvic junction is clearly visible on the plain radiographs projecting lateral to the right transverse processes of L2 and L3. There are a few additional subtle small densities projecting over the upper pole the left kidney and lower pole the right kidney likely representing a few of the larger of multiple tiny bilateral renal stone seen on the prior CT. There are few phleboliths in the pelvis. No dilated loops of bowel to suggest obstruction. IMPRESSION: 1. Bilateral nephrolithiasis with greater visibility of the 1.2 cm stone at the right ureteropelvic junction. Reviewed, dictated and finalized at location A.
--- OUTSIDE RECORDS SUMMARY | 2024-10-14 14:02 | XMS_ITS | Clinical Summary ---
Author Organization [facility] Address [address] [place] [address] Care Team Providers Care Kettle Fry Cook Operator Name Role Phone Phu Valladares Primary Care Provider + Allergies Active Allergy [...] Insomnia 08/23/2015 04/06/2020 Fatigue 08/23/2015 04/06/2020 Immunizations Immunization Administration Dates Next Due Influenza Adult (Generic) [...] Comments Blood Pressure 108/76 04/06/2020 1:21 PM SCIENCE SPECIALIST Pulse 85 04/06/2020 1:21 PM SCIENCE SPECIALIST Temperature 36.8 C (98.2 F) 04/06/2020 1:21 PM SCIENCE SPECIALIST Respiratory Rate 16 04/06/2020 1:21 PM SCIENCE SPECIALIST Oxygen Saturation 97% 04/06/2020 1:21 PM SCIENCE SPECIALIST Inhaled Oxygen Concentration - - Weight 112.5 kg (248 lb) 04/06/2020 1:21 PM SCIENCE SPECIALIST Height 172.1 cm (5' 7.75) 04/06/2020 1:21 PM CS T Body Mass Index 37.99 04/06/2020 1:21 PM SCIENCE SPECIALIST Plan of Treatment Health Maintenance Due Date Last Done Comments Annual Physical 10/19/1982 Hepatitis C 10/19/1997 Hepatitis B Vaccines (1 of 3 - 19+ 3-dose series) 10/19/1998 Pneumococcal Vaccine: Pediatrics (0 to 5 Years) and At-Risk Patients (6 to 49 Years) (1 of 2 - PCV) 10/19/1998 HPV Vaccines (1 - 3-dose SCDM series) 10/19/2006 COVID-19 Vaccine ( season) 2023 Mammogram Screening 11/23/2023 11/22/2021, 10/23/2020, 04/17/2020, Additional history exists DTaP, Tdap and Td Vaccines (2 - Td or Tdap) 04/06/2030 04/06/2020 Meningococcal B Vaccine Aged Out No l [...] Most Recently Relevant to Health Maintenance Insurance [facility] Care Teams Kettle Fry Cook Operator Relationship Specialty Start Date End Date Phu Valladares DO [address] [place], [place] [phone] PCP - General FAMILY PRACTICE 04/06/20
--- OUTSIDE RECORDS SUMMARY | 2024-10-14 14:02 | XMS_ITS | Encounter Summary ---
Author Organization [facility] Address [address] [place] [address] Care Team Providers Care Sausage Smoker Name Role Phone Phu Valladares Primary Care Provider + Encounter Details Date Type Department Care Team (Late st Contact Info) Description 12/05/2021 [employer] Message [facility] Family & Internal Medicine [address] [phone] mangof[facility] jobsbristol hospitalCloudFX, [facility] Provider results Social History Tobacco [...] Total Score: 0 01/06/20 22 9:[address]ICE [address]ICER documented as of this encounter Care Teams Sausage Smoker Relationship Specialty Start Date End Date Phu Valladares DO [address] [place] [id number] PCP - General FAMILY PRACTICE 04/06/20 documented as of this encounter
--- OUTSIDE RECORDS SUMMARY | 2024-10-14 14:02 | XMS_ITS | Encounter Summary ---
Author Organization [facility] Address [address] [place] [address] Care Team Providers Care Director Supply Chain Name Role Phone Phu Valladares DO Primary Care Provider + Encounter Details Date Type Department Care Team (Late st Contact Info) Description 04/24/2020 [employer] Message Enc [facility] [address] [place] [id number] [facility], [facility] Provider Proxy Access Request Social [...] COVID-19? No / Unsure 04/06/2020 1:02 PM DIGITAL CONTENT PRODUCER documented as of this encounter Plan of Treatment Not on file documented as of this encounter Visit Diagnoses Not on filedocumented in this encounter Additional Health Concerns Infection Onset Date Last Indicated Resolved Time COVID-19 Rule Out 03/01/2021 03/01/2021 03/01/2021 11:36 AM DIGITAL CONTENT PRODUCER COVID-19 Rule Out 03/01/2021 03/01/2021 03/02/2021 6:37 PM DIGITAL CONTENT PRODUCER COVID-19 Rule Out 03/05/2021 03/05/2021 03/12/2021 12:32 AM DIGITAL CONTENT PRODUCER documented as of this encounter Care Teams Director Supply Chain Relationship Specialty Start Date End Date Phu Valladares DO [address] [place] [id number] PCP - General FAMILY PRACTICE 04/06/20 documented as of this encounter
[2024-10-14 14:29] LABS: Hematocrit 43.3 % (37.0-47.0); Hemoglobin 14.6 g/dL (12.0-15.0); Immature Granulocyte Percent A 0.4 % (0-0.5); Lymphocytes Absolute Auto 0.84 K/mm3 (0.9-3.2); Mean Corpuscular HGB Conc 33.7 g/dl (32-36); Mean Corpuscular Hemoglobin 28.4 pg (26-34); Mean Corpuscular Volume 84.2 fl (80-100); Nucleated Red Blood Cells Absolute Auto 0.000 K/mm3 (0.0-0.012); Nucleated Red Blood Cells Perc 0.0 % (0.0-0.2); Platelet Count Result 247 k/mm3 (150-375); Red Blood Count 5.14 M/mm3 (4.2-5.4); White Blood Count 14.0 K/mm3 (4.5-10.0)
[2024-10-14 14:37] LABS: Add Urine Microscopic? YES; Appearance Urine Cloudy (Clear); Glucose Urine UA Negative (Negative); Leukocyte Esterase Ur 3+ LEU/UL (Negative); Nitrate Urine Positive (Negative); Non Pathogenic Casts 0-2; Specific Grav Ur 1.015 (1.001-1.035)
[2024-10-14] MEDS: SODIUM CHLORIDE 0.9% IV 1,000 ML 999 ML IV CONT (14:48)
[2024-10-14] MEDS: ONDANSETRON INJ 4 MG/2 ML VIAL IV PUSH ×4 (14:48→22:53)
[2024-10-14] MEDS: HYDROmorphone HCL INJ (*CRX) 1 MG/ML SYR 0.5 MG IV PUSH (14:48)
[2024-10-14 14:49] LABS: Alanine Aminotransferase 27 U/L (6-35); Albumin Level 4.4 g/dL (3.5-5.1); Alkaline Phosphatase 62 U/L (38-126); Anion Gap 10 mmol/L (4-12); Aspartate Amino Transferase 27 U/L (14-36); Bilirubin,Total 1.7 mg/dL (0.2-1.3); Blood Urea Nitrogen 16 mg/dL (7-17); Calcium 9.9 mg/dL (8.4-10.2); Carbon Dioxide 21 mmol/L (22-30); Chloride 108 mmol/L (98-107); Estimated CRCL calculation 89 ml/min; Estimated Glomerular Filt Rate > 60; Glucose 128 mg/dL (65-110); Potassium 3.7 mmol/L (3.4-5.0); Sodium 139 mmol/L (137-145); Total Protein 7.6 g/dL (6.3-8.2)
--- OUTSIDE RECORDS SUMMARY | 2024-10-14 14:55 | XMS_ITS | Clinical Summary ---
Author Organization [facility] Address [address] [place] [address] Care Team Providers Care Geochemical Laboratory Technician Name Role Phone Phu Valladares Primary Care [...] Comments Blood Pressure 108/76 04/06/2020 1:21 PM LEAD SEWAGE PLANT OPERATOR Pulse 85 04/06/2020 1:21 PM LEAD SEWAGE PLANT OPERATOR Temperature 36.8 C (98.2 F) 04/06/2020 1:21 PM LEAD SEWAGE PLANT OPERATOR Respiratory Rate 16 04/06/2020 1:21 PM LEAD SEWAGE PLANT OPERATOR Oxygen Saturation 97% 04/06/2020 1:21 PM LEAD SEWAGE PLANT OPERATOR Inhaled Oxygen Concentration - - Weight 112.5 kg (248 lb) 04/06/2020 1:21 PM LEAD SEWAGE PLANT OPERATOR Height 172.1 cm (5' 7.75) 04/06/2020 1:21 PM CS T Body Mass Index 37.99 04/06/2020 1:21 PM LEAD SEWAGE PLANT OPERATOR Plan of Treatment Health Maintenance Due Date [...] Most Recently Relevant to Health Maintenance Insurance [facility] Care Teams Geochemical Laboratory Technician Relationship Specialty Start Date End Date Phu Valladares DO [address] [place], [place] [phone] PCP - General FAMILY PRACTICE 04/06/20
--- OUTSIDE RECORDS SUMMARY | 2024-10-14 14:55 | XMS_ITS | Encounter Summary ---
Author Organization [facility] Address [address] [place] [address] Care Team Providers Care Men'S Designer Name Role Phone Phu Valladares Primary Care Provider + Encounter Details Date Type Department Care Team (Late st Contact Info) Description 12/05/2021 [employer] Message [facility] Family & Internal Medicine [address] [phone] [facility] Pharmaceuticalsnew milford hospitalCredit Coach, [facility] Provider results Social History [...] Total Score: 0 01/06/20 22 9:55 AM BANJO REPAIR PERSON documented as of this encounter Care Teams Men'S Designer Relationship Specialty Start Date End Date Phu Valladares DO [address] [place] [phone] PCP - General FAMILY PRACTICE 04/06/20 documented as of this encounter
--- OUTSIDE RECORDS SUMMARY | 2024-10-14 14:55 | XMS_ITS | Encounter Summary ---
Author Organization [facility] Address [address] [place] [address] Care Team Providers Care Research Asst Name Role Phone Phu Valladares DO Primary Care Provider + Encounter Details Date Type Department Care Team (Late st Contact Info) Description 04/24/2020 F?rsat Bu F?rsat Message Enc [facility] [address] [place] [id number] [facility], [facility] Provider Proxy Access Request Social History Tobacco [...] COVID-19? No / Unsure 04/06/2020 1:02 PM LAND LEASING EXAMINER documented as of this encounter Plan of Treatment Not on file documented as of this encounter Visit Diagnoses Not on filedocumented in this encounter Additional Health Concerns Infection Onset Date Last Indicated Resolved Time COVID-19 Rule Out 03/01/2021 03/01/2021 03/01/2021 11:36 AM LAND LEASING EXAMINER COVID-19 Rule Out 03/01/2021 03/01/2021 03/02/2021 6:37 PM LAND LEASING EXAMINER COVID-19 Rule Out 03/05/2021 03/05/2021 03/12/2021 12:32 AM LAND LEASING EXAMINER documented as of this encounter Care Teams Research Asst Relationship Specialty Start Date End Date Phu Valladares DO [address] [place] [phone] PCP - General FAMILY PRACTICE 04/06/20 documented as of this encounter
--- NOTE | 2024-10-14 15:33 | ED_ITS ---
HPI - Female Genitourinary General Chief complaint: Urogenital-Female <JOHANNE Mansfield Last Filed: 10/14/24 16:44> Stated complaint: kidney stones <JOHANNE Mansfield Last Filed: 10/14/24 16:44> Time Seen by Provider: 10/14/24 14:18 <JOHANNE Mansfield Last Filed: 10/14/24 16:44> Source: patient <JOHANNE Mansfield Last Filed: 10/14/24 16:44> Mode of arrival: ambulatory <JOHANNE Mansfield Last Filed: 10/14/24 16:44> Limitations: no limitations <JOHANNE Mansfield Last Filed: 10/14/24 16:44> History of Present Illness HPI Narrative: Patient is a 43-year-old female who presents the ED with report of right flank pain. Patient reports pain began around midnight, has been worsening throughout the day today. Present in right flank, radiates to right lower abdomen. Reports long history of kidney stones and states this feels similar. Sees Dr. Spencer. Reports difficulty urinating, decreased urination, nausea, vomiting. Denies known fevers. Denies known hematuria. <JOHANNE Mansfield Last Filed: 10/14/24 16:44> Related Data Home medications: Home Medications ?Medication ?Instructions ?Recorded ?Confirmed ?Last Taken ?Type No Home Medications 10/14/24 10/14/24 U nknown History <JOHANNE Mansfield Last Filed: 10/14/24 16:44> Allergies/Adverse reactions: Allergies Allergy/AdvReac Type Severity Reaction Status Date / Time Penicillins Allergy Unknown UNKNOWN Verified 10/14/24 15:47 morphine AdvReac Mild Itching Verified 10/14/24 15:47 <JOHANNE Mansfield Last Filed: 10/14/24 16:44> Review of Systems 2 Review of Systems: All systems reviewed & are unremarkable except as noted in HPI. 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, non-tobacco product <Jia Alvarado PA-C - Last Filed: 10/14/24 16:44> Surgical History Surgical History: Surgical History History of left oophorectomy (03/2020) Ovarian cyst History of right salpingo-oophorectomy (2003) Ovarian cyst History of vaginal hysterectomy (2011) History of laparoscopy endometriosis <Jia Alvarado PA-C - Last Filed: 10/14/24 16:44> Family History Family History: Family History Mother Hypertension Cerebrovascular accident, Onset Age: 58 Small cell carcinoma Father Hypertension <JOHANNE Mansfield Last Filed: 10/14/24 16:44> Social History Social History: Social History Social History: Surrogate medical decision maker: Jai Rice, spouse. Code status: Full code. Smoking packs per day: 1 Smoking cigarettes per day: 20.0 Years smoked: 15 Smoking pack-years: 15.00 Smoking status: Current every day smoker Tobacco type: e-cigarettes/vaping Additional smoking assessment comments: fills little pod once every two days Alcohol intake: current Substance use: never Substance use type: does not use Other substance usage details: smoking/edibles- couple times a month Do You Feel Safe in your Home?: Yes Lack of Transportation: No Lack of Food: Never True Current Housing: I Have Housing Concerned About Future Housing: No Difficulty Paying Gas/Electric Bills: No Difficulty Paying for Meds: No Currently Unemployed: No Education: Trade/Vocational Certificate Difficulty w/ Childcare or Family Care: No Living arrangements: with family Additional living arrangements comments: Lives with spouse. They have 2 children. Occupation/Education: occupation Spiritual care concerns: No <Jia Alvarado PA-C - Last Filed: 10/14/24 16:44> Exam 2 Narrative: GENERAL: Uncomfortable appearing, difficulty sitting still, moderate acute distress due to pain. Obese with BMI of 35.8 HEAD: Normocephalic, atraumatic. RESPIRATORY: Airway patent, respirations nonlabored. Clear to auscultation bilaterally, no rales, rhonchi, wheezing. CARDIOVASCULAR: Tachycardic with regular rhythm without murmurs, rubs, or gallops. ABDOMINAL: Soft, diffuse tenderness throughout right lower abdomen, nondistended. Normoactive BS. Positive flank tenderness on right MUSCULOSKELETAL: Moves all extremities. No gross deformities. SKIN: Warm, dry, normal color. NEURO: A&O X3. Speech clear. PSYCHIATRIC: Appropriate mood and affect. Normal interaction. <Jia Alvarado PA-C - Last Filed: 10/14/24 16:44> Course SOFTWARE APPLICATIONS DESIGNER/PA Physician Supervision This visit was performed by both a physician and an APC. I performed all aspects of the MDM as documented. <Johnson Crum MD - Last Filed: 10/14/24 20:16> Vital Signs Vital signs: Vital Signs Pulse Rate 108 H 10/14/24 13:58 Respiratory Rate 20 10/14/24 13:58 Blood Pressure 135/95 H 10/14/24 13:58 Pulse Oximetry 100 10/14/24 13:58 Oxygen Delivery Room Air 10/14/24 13:58 Temperature 98.2 F 10/14/24 20:03 Pulse Rate 96 10/14/24 20:03 Respiratory Rate 18 10/14/24 20:03 Blood Pressure 140/86 10/14/24 20:03 Pulse Oximetry 99 10/14/24 20:03 Oxygen Delivery Room Air 10/14/24 18:55 Oxygen Flow Rate 8 10/14/24 17:55 <Jia Alvarado PA-C - Last Filed: 10/14/24 16:44> Vital Signs Pulse Rate 108 H 10/14/24 13:58 Respiratory Rate 20 10/14/24 13:58 Blood Pressure 135/95 H 10/14/24 13:58 Pulse Oximetry 100 10/14/24 13:58 Oxygen Delivery Room Air 10/14/24 13:58 Temperature 98.2 F 10/14/24 20:03 Pulse Rate 96 10/14/24 20:03 Respiratory Rate 18 10/14/24 20:03 Blood Pressure 140/86 10/14/24 20:03 Pulse Oximetry 99 10/14/24 20:03 Oxygen Delivery Room Air 10/14/24 18:55 Oxygen Flow Rate 8 10/14/24 17:55 <Johnson Crum MD - Last Filed: 10/14/24 20:16> MDM - Female Genitourinary MDM Narrative Medical decision making narrative: Patient presented to ED with right flank and abdominal pain, onset last night and worsening today. History of kidney stones. Sees Dr. Spencer. Tachycardic upon arrival. Afebrile here. Cbc with blood cell count of 14.0. Kidney function is stable. UA concerning for infection, positive nitrate, greater than 100 WBC, 4+ urine bacteria. Sent for culture. Patient given dose of Rocephin in the ED. CT of the abdomen/pelvis showing 1.2cm obstructing stone at R UPJ. Patient very uncomfortable appearing despite several doses of pain medication. Persistent vomiting. Will discuss with urology. Discussed case with Dr. Spencer, urology, advised will take to the OR now for stent. Recommended admission under hospitalist service afterwards for continued pain control/IV abx. Discussed case with Dr. Fay, hospitalist, accepted patient for admission. Patient in agreement with plan and need for surgery/admission. <Jia Alvarado PA-C - Last Filed: 10/14/24 16:44> Patient presented to ED with right flank and abdominal pain, onset last night and worsening today. History of kidney stones. Sees Dr. Spencer. Tachycardic upon arrival. Afebrile here. Cbc with blood cell count of 14.0. Kidney function is stable. UA concerning for infection, positive nitrate, greater than 100 WBC, 4+ urine bacteria. Sent for culture. Patient given dose of Rocephin in the ED. CT of the abdomen/pelvis showing 1.2cm obstructing stone at R UPJ. Patient very uncomfortable appearing despite several doses of pain medication. Persistent vomiting. Will discuss with urology. Discussed case with Dr. Spencer, urology, advised will take to the OR now for stent. Recommended admission under hospitalist service afterwards for continued pain control/IV abx. Discussed case with Dr. Fay, hospitalist, accepted patient for admission. Patient in agreement with plan and need for surgery/admission. <Johnson Crum MD - Last Filed: 10/14/24 20:16> Medical Records Attestation: I reviewed the patient's medical records. <Jia Alvarado PA-C - Last Filed: 10/14/24 16:44> Lab Data Attestation: I reviewed the patient's lab results. <Jia Alvarado PA-C - Last Filed: 10/14/24 16:44> Result diagrams: 10/14/24 14:24 10/14/24 14:24 <Jia Alvarado PA-C - Last Filed: 10/14/24 16:44> Labs: Lab Results 10/14/24 Range/Units 14:24 WBC 14.0 H (4.5-10.0) K/mm3 RBC 5.14 (4.2-5.4) M/mm3 Hgb 14.6 (12.0-15.0) g/dL Hct 43.3 (37.0-47.0) % MCV 84.2 (80-100) fl MCH 28.4 (26-34) pg MCHC 33.7 (32-36) g/dl RDW 12.2 (11.5-14.5) % Plt Count 247 (150-375) k/mm3 MPV 10.4 (7.4-10.4) fl Immature Gran % (Auto) 0.4 (0-0.5) % Neut % (Auto) 88.9 H (45.5-73.1) % Lymph % (Auto) 6.0 L (18.3-44.2) % [place] % (Auto) 4.4 (2.6-8.5) % Eos % (Auto) 0.1 (0-4.4) % Baso % (Auto) 0.2 (0.2-1.2) % Lymph # (Auto) 0.84 L (0.9-3.2) K/mm3 [place] # (Auto) 0.6 (0.1-0.6) K/mm3 Eos # (Auto) 0.0 (0-0.3) K/mm3 Baso # (Auto) 0.0 (0.0-0.1) K/mm3 Abs Immat Gran (auto) 0.05 H (0.00-0.031) K/mm3 Absolute Neuts (auto) 12.4 H (1.3-6.7) K/mm3 Absolute Nucleated RBC 0.000 (0.0-0.012) K/mm3 Nucleated RBC % 0.0 (0.0-0.2) % Sodium 139 (137-145) mmol/L Potassium 3.7 (3.4-5.0) mmol/L Chloride 108 H (98-107) mmol/L Carbon Dioxide 21 L (22-30) mmol/L Anion Gap 10 (4-12) mmol/L BUN 16 (7-17) mg/dL Creatinine 0.97 (0.7-1.0) mg/dL Estim Creat Clear Calc 89 ml/min Estimated GFR > 60 (59 - ) Glucose 128 H (65-110) mg/dL Calcium 9.9 (8.4-10.2) mg/dL Total Bilirubin 1.7 H (0.2-1.3) mg/dL AST 27 (14-36) U/L ALT 27 (6-35) U/L Alkaline Phosphatase 62 (38-126) U/L Total Protein 7.6 (6.3-8.2) g/dL Albumin 4.4 (3.5-5.1) g/dL Urine Color Yellow (Yellow) Urine Appearance Cloudy H (Clear) Urine pH 8.0 (5.0-9.0) Ur Specific [place] 1.015 (1.001-1.035) Urine Protein Trace (Negative) mg/dL Urine Glucose (UA) Negative (Negative) mg/dL Urine Ketones Negative (Negative) mg/dL Ur Blood (Man) 1+ H (Negative) Urine Nitrate Positive H (Negative) Urine Bilirubin Negative (Negative) Urine Urobilinogen 0.2 (<2.0) mg/dL Leukocyte Esterase Rfl 3+ H (Negative) USAMA/UL Urine RBC 3-5 H (0-2) /hpf Urine WBC >100 H (0-3) /hpf Ur Squamous Epith Cells None seen (Few) /hpf Urine Bacteria 4+ /hpf Urine Casts 0-2 <Jia Alvarado PA-C - Last Filed: 10/14/24 16:44> Lab Results 10/14/24 Range/Units 14:24 WBC 14.0 H (4.5-10.0) K/mm3 RBC 5.14 (4.2-5.4) M/mm3 Hgb 14.6 (12.0-15.0) g/dL Hct 43.3 (37.0-47.0) % MCV 84.2 (80-100) fl MCH 28.4 (26-34) pg MCHC 33.7 (32-36) g/dl RDW 12.2 (11.5-14.5) % Plt Count 247 (150-375) k/mm3 MPV 10.4 (7.4-10.4) fl Immature Gran % (Auto) 0.4 (0-0.5) % Neut % (Auto) 88.9 H (45.5-73.1) % Lymph % (Auto) 6.0 L (18.3-44.2) % [place] % (Auto) 4.4 (2.6-8.5) % Eos % (Auto) 0.1 (0-4.4) % Baso % (Auto) 0.2 (0.2-1.2) % Lymph # (Auto) 0.84 L (0.9-3.2) K/mm3 [place] # (Auto) 0.6 (0.1-0.6) K/mm3 Eos # (Auto) 0.0 (0-0.3) K/mm3 Baso # (Auto) 0.0 (0.0-0.1) K/mm3 Abs Immat Gran (auto) 0.05 H (0.00-0.031) K/mm3 Absolute Neuts (auto) 12.4 H (1.3-6.7) K/mm3 Absolute Nucleated RBC 0.000 (0.0-0.012) K/mm3 Nucleated RBC % 0.0 (0.0-0.2) % Sodium 139 (137-145) mmol/L Potassium 3.7 (3.4-5.0) mmol/L Chloride 108 H (98-107) mmol/L Carbon Dioxide 21 L (22-30) mmol/L Anion Gap 10 (4-12) mmol/L BUN 16 (7-17) mg/dL Creatinine 0.97 (0.7-1.0) mg/dL Estim Creat Clear Calc 89 ml/min Estimated GFR > 60 (59 - ) Glucose 128 H (65-110) mg/dL Calcium 9.9 (8.4-10.2) mg/dL Total Bilirubin 1.7 H (0.2-1.3) mg/dL AST 27 (14-36) U/L ALT 27 (6-35) U/L Alkaline Phosphatase 62 (38-126) U/L Total Protein 7.6 (6.3-8.2) g/dL Albumin 4.4 (3.5-5.1) g/dL Urine Color Yellow (Yellow) Urine Appearance Cloudy H (Clear) Urine pH 8.0 (5.0-9.0) Ur Specific [place] 1.015 (1.001-1.035) Urine Protein Trace (Negative) mg/dL Urine Glucose (UA) Negative (Negative) mg/dL Urine Ketones Negative (Negative) mg/dL Ur Blood (Man) 1+ H (Negative) Urine Nitrate Positive H (Negative) Urine Bilirubin Negative (Negative) Urine Urobilinogen 0.2 (<2.0) mg/dL Leukocyte Esterase Rfl 3+ H (Negative) USAMA/UL Urine RBC 3-5 H (0-2) /hpf Urine WBC >100 H (0-3) /hpf Ur Squamous Epith Cells None seen (Few) /hpf Urine Bacteria 4+ /hpf Urine Casts 0-2 <Johnson Crum MD - Last Filed: 10/14/24 20:16> Imaging Data Attestation: I personally reviewed and interpreted this imaging study as follows: < Jia Alvarado PA-C - Last Filed: 10/14/24 16:44> Radiologist's impression: ITS Impressions Abdomen/Pelvis CT 10/14/24 15:24 IMPRESSION: 1. Multiple bilateral renal stones with obstructing 1.2 cm stone at the right ureteropelvic junction resulting in mild right hydronephrosis. <Jia Alvarado PA-C - Last Filed: 10/14/24 16:44> Discharge Plan Discharge Clinical Impression: Calculus of proximal right ureter UTI (urinary tract infection) Qualifiers: Urinary tract infection type: acute cystitis Hematuria presence: with hematuria Qualified Code(s): N30.01 - Acute cystitis with hematuria <JOHANNE Mansfield Last Filed: 10/14/24 16:44> Patient Disposition: Still a Patient <JOHANNE Mansfield Last Filed: 10/14/24 16:44> Condition: Stable <JOHANNE Mansfield Last Filed: 10/14/24 16:44>
[2024-10-14] MEDS: HYDROmorphone HCL INJ (*CRX) 1 MG/ML SYR IV PUSH ×3 (15:40→23:32)
[2024-10-14] MEDS: cefTRIAXone 1 GM in SODIUM CHLORIDE 0.9% IV 50 ML 100 ML IVPB (15:40)
--- OUTSIDE RECORDS SUMMARY | 2024-10-14 15:53 | XMS_ITS | Encounter Summary ---
Author Organization [facility] Address [address] [place] [address] Care Team Providers Care Technology Advisor Name Role Phone Phu Valladares DO Primary Care Provider + Encounter Details Date Type Department Care Team (Late st Contact Info) Description 04/24/2020 [facility] Message Enc [facility] [address] [place] [phone] [facility], [facility] Provider Proxy Access Request Social History [...] COVID-19? No / Unsure 04/06/2020 1:02 PM ACCORDION REPAIRER documented as of this encounter Plan of Treatment Not on file documented as of this encounter Visit Diagnoses Not on filedocumented in this encounter Additional Health Concerns Infection Onset Date Last Indicated Resolved Time COVID-19 Rule Out 03/01/2021 03/01/2021 03/01/2021 11:36 AM ACCORDION REPAIRER COVID-19 Rule Out 03/01/2021 03/01/2021 03/02/2021 6:37 PM ACCORDION REPAIRER COVID-19 Rule Out 03/05/2021 03/05/2021 03/12/2021 12:32 AM ACCORDION REPAIRER documented as of this encounter Care Teams Technology Advisor Relationship Specialty Start Date End Date Phu Valladares DO [address] [place] [id number] PCP - General FAMILY PRACTICE 04/06/20 documented as of this encounter
--- OUTSIDE RECORDS SUMMARY | 2024-10-14 15:53 | XMS_ITS | Clinical Summary ---
Author Organization [facility] Address [address] [place] [address] Care Team Providers Care Games Dealer Name Role Phone Phu Valladares Primary Care [...] Comments Blood Pressure 108/76 04/06/2020 1:21 PM SCIENTIFIC DIRECTOR Pulse 85 04/06/2020 1:21 PM SCIENTIFIC DIRECTOR Temperature 36.8 C (98.2 F) 04/06/2020 1:21 PM SCIENTIFIC DIRECTOR Respiratory Rate 16 04/06/2020 1:21 PM SCIENTIFIC DIRECTOR Oxygen Saturation 97% 04/06/2020 1:21 PM SCIENTIFIC DIRECTOR Inhaled Oxygen Concentration - - Weight 112.5 kg (248 lb) 04/06/2020 1:21 PM SCIENTIFIC DIRECTOR Height 172.1 cm (5' 7.75) 04/06/2020 1:21 PM CS T Body Mass Index 37.99 04/06/2020 1:21 PM SCIENTIFIC DIRECTOR Plan of Treatment Health Maintenance Due Date [...] Most Recently Relevant to Health Maintenance Insurance [facility] Care Teams Games Dealer Relationship Specialty Start Date End Date Phu Valladares DO [address] [place], [place] [id number] PCP - General FAMILY PRACTICE 04/06/20
--- OUTSIDE RECORDS SUMMARY | 2024-10-14 15:53 | XMS_ITS | Encounter Summary ---
Author Organization [facility] Address [address] [place] [address] Care Team Providers Care Shaper Operator Name Role Phone Phu Valladares Primary Care Provider + Encounter Details Date Type Department Care Team (Late st Contact Info) Description 12/05/2021 [facility] Family & Internal Medicine [address] [phone] [facility] Provider results Social History Tobacco [...] Total Score: 0 01/06/20 22 9:55 AM OUTSOLE ROUNDER documented as of this encounter Care Teams Shaper Operator Relationship Specialty Start Date End Date Phu Valladares DO [address] [place] [id number] PCP - General FAMILY PRACTICE 04/06/20 documented as of this encounter
[2024-10-14] MEDS: LACTATED RINGERS 1,000 ML 30 ML IV CONT ×2 (16:30→17:41)
--- NOTE | 2024-10-14 16:34 | WPDURCON ---
Assessment and Plan Assessment and plan (1) Obstruction of right ureteropelvic junction (UPJ) due to stone: Code(s): N20.1 - Calculus of ureter Status: Acute (2) Urinary tract infection: Code(s): N39.0 - Urinary tract infection, site not specified Status: Acute Plan Obstructing large right UPJ calculus with probable urinary tract infection Plan emergent cystoscopy with right ureteral stent placement this afternoon. Once her infection has been thoroughly treated will arrange definitive management for her stone. Urology Consult Note HPI Date Seen: 10/14/24 Requesting Physician: Andrew Spencer MD Primary Care Provider: Ayan Tan MD Consult Narrative Narrative: Linnette Rice is a 43 year old female known to me with a history of recurrent urolithiasis. She Mr. Last appointment in July presents to the ER now with acute right flank pain it is pretty severe, nausea vomiting but no fevers or chills. Her urine, however, appears infected and imaging demonstrates an obstructing 1.2 mm right UPJ calculus. 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 Code status: Full code. Smoking packs per day: 1 Smoking cigarettes per day: 20.0 Years smoked: 15 Smoking pack-years: 15.00 Smoking status: Current every day smoker Tobacco type: e-cigarettes/vaping Additional smoking assessment comments: fills little pod once every two days Alcohol intake: former Substance use: current Substance use type: marijuana Other substance usage details: smoking/edibles- couple times a month Do You Feel Safe in your Home?: Yes Lack of Transportation: No Lack of Food: Never True Current Housing: I Have Housing Concerned About Future Housing: No Difficulty Paying Gas/Electric Bills: No Difficulty Paying for Meds: No Currently Unemployed: No Education: Trade/Vocational Certificate Difficulty w/ Childcare or Family Care: No Living arrangements: with family Additional living arrangements comments: Lives with spouse. They have 2 children. Occupation/Education: occupation Spiritual care concerns: No Meds Home Medications and Allergies Home Medications ?Medication ?Instructions ?Recorded ?Confirmed ?Type ketorolac 10 mg tablet 10 mg PO Q6H 5 days #20 tabs 03/25/24 04/06/24 Rx sulfamethoxazole 800 1 tablet PO Q12H 04/06/24 04/06/24 History mg-trimethoprim 160 mg tablet Allergies Allergy/AdvReac Type Severity Reaction Status Date / Time Penicillins Allergy Unknown UNKNOWN Verified 10/14/24 15:47 morphine AdvReac Mild Itching Verified 10/14/24 15:47 Vital Signs Vital Signs - 24 hr 10/14/24 13:58 10/14/24 15:33 Temperature 98.8 F Pulse Rate 108 H Respiratory Rate 20 Blood Pressure 135/95 H Pulse Oximetry 100 Oxygen Delivery Room Air Exam Const: General: no acute distress Resp: Effort & Inspection: normal respiratory effort GI: Inspection: non-distended GI Palp: No abdominal tenderness and No Guarding due to palpation present (GI) Auscultation: normal bowel sounds Results Labs 10/14/24 14:24 10/14/24 14:24 Labs: Short CBC 10/14/24 Range/Units 14:24 WBC 14.0 H (4.5-10.0) K/mm3 Hgb 14.6 (12.0-15.0) g/dL Hct 43.3 (37.0-47.0) % Plt Count 247 (150-375) k/mm3 BMP 10/14/24 14:24 Sodium 139 Potassium 3.7 Chloride 108 H Carbon Dioxide 21 L BUN 16 Creatinine 0.97 Glucose 128 H Calcium 9.9 Liver Function 10/14/24 Range/Units 14:24 Total Bilirubin 1.7 H (0.2-1.3) mg/dL AST 27 (14-36) U/L ALT 27 (6-35) U/L Alkaline Phosphatase 62 (38-126) U/L Albumin 4.4 (3.5-5.1) g/dL Urine 10/14/24 Range/Units 14:24 Urine Color Yellow (Yellow) Urine Appearance Cloudy H (Clear) Urine pH 8.0 (5.0-9.0) Ur Specific [place] 1.015 (1.001-1.035) Urine Protein Trace (Negative) mg/dL Urine Glucose (UA) Negative (Negative) mg/dL
--- NOTE | 2024-10-14 16:37 | WPDHPUPDATE1 ---
History and Physical Update Update Date/Time: 10/14/24 16:37 History and Physical has been reviewed, including an updated exam of the patient. There are NO changes in the patient's condition. Risks, benefits, and alternatives have been discussed and questions answered. Patient agrees to proceed with procedure.
--- NOTE | 2024-10-14 16:46 | P.PNAN_ITS ---
Anes - Eval Pre Procedure Procedure: Operation Date: 10/14/24 16:30 Proposed Procedures p Cystoscopy with Right Stent Placement, Possible Right Retrograde Pyelogram(Right) - Andrew Spencer MD Date/Time: 10/14/24 16:46 Patient Data Age: 43 Gender: F Height: 1.78 m Weight: 113.1 kg Last Vital Signs Temp 37.1 C 10/14/24 15:33 Pulse 108 H 10/14/24 13:58 Resp 20 10/14/24 13:58 BP 135/95 H 10/14/24 13:58 Pulse Ox 100 10/14/24 13:58 O2 Del Method Room Air 10/14/24 13:58 Allergies Allergy/AdvReac Type Severity Reaction Status Date / Time Penicillins Allergy Unknown UNKNOWN Verified 10/14/24 15:47 morphine AdvReac Mild Itching Verified 10/14/24 15:47 Home Medications ?Medication ?Instructions ?Recorded ?Confirmed ?Type ketorolac 10 mg tablet 10 mg PO Q6H 5 days #20 tabs 03/25/24 04/06/24 Rx sulfamethoxazole 800 1 tablet PO Q12H 04/06/24 History mg-trimethoprim 160 mg tablet Laboratory Tests 10/14/24 14:24 WBC 14.0 H K/mm3 (4.5-10.0) RBC 5.14 M/mm3 (4.2-5.4) Hgb 14.6 g/dL (12.0-15.0) Hct 43.3 % (37.0-47.0) MCV 84.2 fl (80-100) MCH 28.4 pg (26-34) MCHC 33.7 g/dl (32-36) RDW 12.2 % (11.5-14.5) Plt Count 247 k/mm3 (150-375) MPV 10.4 fl (7.4-10.4) Immature Gran % (Auto) 0.4 % (0-0.5) Neut % (Auto) 88.9 H % (45.5-73.1) Lymph % (Auto) 6.0 L % (18.3-44.2) [place] % (Auto) 4.4 % (2.6-8.5) Eos % (Auto) 0.1 % (0-4.4) Baso % (Auto) 0.2 % (0.2-1.2) Lymph # (Auto) 0.84 L K/mm3 (0.9-3.2) [place] # (Auto) 0.6 K/mm3 (0.1-0.6) Eos # (Auto) 0.0 K/mm3 (0-0.3) Baso # (Auto) 0.0 K/mm3 (0.0-0.1) Abs Immat Gran (auto) 0.05 H K/mm3 (0.00-0.031) Absolute Neuts (auto) 12.4 H K/mm3 (1.3-6.7) Absolute Nucleated RBC 0.000 K/mm3 (0.0-0.012) Nucleated RBC % 0.0 % (0.0-0.2) Sodium 139 mmol/L (137-145) Potassium 3.7 mmol/L (3.4-5.0) Chloride 108 H mmol/L (98-107) Carbon Dioxide 21 L mmol/L (22-30) Anion Gap 10 mmol/L (4-12) BUN 16 mg/dL (7-17) Creatinine 0.97 mg/dL (0.7-1.0) Estim Creat Clear Calc 89 ml/min Estimated GFR > 60 (59 - ) Glucose 128 H mg/dL (65-110) Calcium 9.9 mg/dL (8.4-10.2) Total Bilirubin 1.7 H mg/dL (0.2-1.3) AST 27 U/L (14-36) ALT 27 U/L (6-35) Alkaline Phosphatase 62 U/L (38-126) Total Protein 7.6 g/dL (6.3-8.2) Albumin 4.4 g/dL (3.5-5.1) Urine Color Yellow (Yellow) Urine Appearance Cloudy H (Clear) Urine pH 8.0 (5.0-9.0) Ur Specific [place] 1.015 (1.001-1.035) Urine Protein Trace mg/dL (Negative) Urine Glucose (UA) Negative mg/dL (Negative) Urine Ketones Negative mg/dL (Negative) Ur Blood (Man) 1+ H (Negative) Urine Nitrate Positive H (Negative) Urine Bilirubin Negative (Negative) Urine Urobilinogen 0.2 mg/dL (<2.0) Leukocyte Esterase Rfl 3+ H USAMA/UL (Negative) Urine RBC 3-5 H /hpf (0-2) Urine WBC >100 H /hpf (0-3) Ur Squamous Epith Cells None seen /hpf (Few) Urine Bacteria 4+ /hpf Urine Casts 0-2 Patient hx anesthesia problems: none Family hx anesthesia problems: none Results Review: All pre-operative results and documents have been reviewed as part of the pre- operative evaluation. 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 Code status: Full code. Smoking packs per day: 1 Smoking cigarettes per day: 20.0 Years smoked: 15 Smoking pack-years: 15.00 Smoking status: Current every day smoker Tobacco type: e-cigarettes/vaping Additional smoking assessment comments: fills little pod once every two days Alcohol intake: former Substance use: current Substance use type: marijuana Other substance usage details: smoking/edibles- couple times a month Do You Feel Safe in your Home?: Yes Lack of Transportation: No Lack of Food: Never True Current Housing: I Have Housing Concerned About Future Housing: No Difficulty Paying Gas/Electric Bills: No Difficulty Paying for Meds: No Currently Unemployed: No Education: Trade/Vocational Certificate Difficulty w/ Childcare or Family Care: No Living arrangements: with family Additional living arrangements comments: Lives with spouse. They have 2 children. Occupation/Education: occupation Spiritual care concerns: No Exam Day of Procedure 10/14/24 16:46 Patient weight: normal Heart: regular rate and rhythm Lungs: clear to auscultation and normal air movement Airway: Mallampati scale Neurological: alert and oriented
[2024-10-14] MEDS: LIDOCAINE 2% GEL UROJET 10 ML PKG MUCOUS MEM (17:10)
--- NOTE | 2024-10-14 17:23 | W.PM.PROC2 ---
Procedure Note - Detailed Date of Procedure 10/14/24 Pre-op Diagnosis Right UPJ calculus and urinary tract infection Post-op Diagnosis Same Procedure Performed Cystoscopy, right retrograde pyelography, right ureteral stent placement Surgeon Andrew Spencer MD Anesthesia General Description of Procedure Patient is brought to the operative suite where she is prepped and draped in routine sterile fashion while in a dorsal lithotomy position. Cystoscopy was undertaken with a 19 F rigid cystoscope. Bladder neck and urethra endoscopically normal but the bladder shows diffuse hyperemia consistent with bacterial cystitis. There is no intravesical foreign body or neoplasm. She has a single orthotopic ureteral orifice bilaterally. 0.035 in glidewire was advanced in the right renal pelvis. Retrograde pyelography is in obtained through a [place] catheter to ensure appropriate placement of a 4.8 F variable length ureteral stent with the proximal coil in the upper pole calyx and distal coil in the bladder. Scopes wires removed and she was taken to the recovery room in good condition. Drains Yes Pathology None sent Complications No immediate complications Condition Stable
--- NOTE | 2024-10-14 19:45 | ADMGEN ---
This patient, Linnette Rice, was admitted to Medical Room 349-01. Patient/family oriented to hospital policies and general routines including ID bracelet, bed and alarms, visiting hours, pain management, procedures, bathroom and other care routines, personal items, smoking policy, room service/diet, and visiting hours. Information on how to activate the Rapid Response Team has been discussed. Patient/Family are encouraged to report perceived risks to care and to ask questions if they do not understand what they are told or what they should do.
--- NOTE | 2024-10-14 20:34 | P.HP_ITS ---
H&P: HPI History of Present Illness Date/Time: 10/14/24 20:34 Chief Complaint: Right flank pain Narrative: This is a 43-year-old female who presents to the ED with report of right flank pain with started about midnight worsened throughout the day radiated right lower abdomen. History of kidney stones in the past. Reports difficulty urinating and decreased urination nausea vomiting. No fever no hematuria. She follows with Dr. Spencer. In the ED she was mildly tachycardic afebrile. Laboratory studies showed WBC of 14 hemoglobin of 14.6 platelet of 247. Chem panel showed sodium of 139 potassium 3.7 chloride 108 bicarbonate 21 BUN 16 creatinine 0.9 blood glucose 128. LFTs with total bilirubin of 1.7 rest is normal. Urinalysis showed more than 100 WBC 3-5 urine RBC with 4+ bacteria and positive nitrates and leukocyte esterase. CT abdomen pelvis showed multiple bilateral renal stones with obstructing 1.2 cm stone at the right ureteropelvic junction resulting in mild right hydronephrosis. Urology was consulted and she underwent cystoscopy with right retrograde pyelography and right ureteral stent placement this evening. She is admitted in this setting for further treatment. Review of Systems Review of Systems: - CONSTITUTIONAL: Denies weight loss, fe palmer and chills. - HEENT: Denies changes in vision and he aring - RESPIRATORY: Denies SOB and cough. - CV: Denies palpitations and CP. - GI: Reports right flank pain, nausea, vomiting and denies diarrhea. - : Reports dysuria and urinary frequ ency. Reports right flank pain - MSK: Denies myalgia and joint pain. - SKIN: Denies rash and pruritus. - NEUROLOGICAL: Denies headache and sync ope. - PSYCHIATRIC: Denies recent changes in mood. Denies anxiety and depression. 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 Code status: Full code. Smoking packs per day: 1 Smoking cigarettes per day: 20.0 Years smoked: 15 Smoking pack-years: 15.00 Smoking status: Current every day smoker Tobacco type: e-cigarettes/vaping Additional smoking assessment comments: fills little pod once every two days Alcohol intake: current Substance use: never Substance use type: does not use Other substance usage details: smoking/edibles- couple times a month Do You Feel Safe in your Home?: Yes Lack of Transportation: No Lack of Food: Never True Current Housing: I Have Housing Concerned About Future Housing: No Difficulty Paying Gas/Electric Bills: No Difficulty Paying for Meds: No Currently Unemployed: No Education: Trade/Vocational Certificate Difficulty w/ Childcare or Family Care: No Living arrangements: with family Additional living arrangements comments: Lives with spouse. They have 2 children. Occupation/Education: occupation Spiritual care concerns: No Meds Home Medications and Allergies Home Medications ?Medication ?Instructions ?Recorded ?Confirmed ?Type No Home Medications 10/14/24 10/14/24 H istory Allergies Allergy/AdvReac Type Severity Reaction Status Date / Time Penicillins Allergy Unknown UNKNOWN Verified 10/14/24 15:47 morphine AdvReac Mild Itching Verified 10/14/24 15:47 Vital Signs Vital Signs - 24 hr 10/14/24 13:58 10/14/24 15:33 10/14/24 16:30 Temperature 98.8 F 99.5 F Pulse Rate 108 H 87 Respiratory Rate 20 16 Blood Pressure 135/95 H 137/80 Pulse Oximetry 100 97 Oxygen Delivery Room Air Room Air Oxygen Flow Rate 10/14/24 17:27 10/14/24 17:40 10/14/24 17:55 Temperature 100.2 F H Pulse Rate 99 96 100 Respiratory Rate 16 20 18 Blood Pressure 120/70 96/60 L 113/75 Pulse Oximetry 98 98 100 Oxygen Delivery Simple Face Mask Simple Face Mask Simple Face Mask Oxygen Flow Rate 8 8 8 10/14/24 18:05 10/14/24 18:10 10/14/24 18:25 Temperature 99.3 F Pulse Rate 100 99 Respiratory Rate 20 17 Blood Pressure 112/78 121/81 Pulse Oximetry 95 94 Oxygen Delivery Room Air Room Air Oxygen Flow Rate 10/14/24 18:40 10/14/24 18:55 10/14/24 20:03 Temperature 98.2 F Pulse Rate 98 88 96 Respiratory Rate 16 14 18 Blood Pressure 121/74 106/70 140/86 Pulse Oximetry 95 96 99 Oxygen Delivery Room Air Room Air Oxygen Flow Rate H&P: Results Labs Labs: Short CBC 10/14/24 Range/Units 14:24 WBC 14.0 H (4.5-10.0) K/mm3 Hgb 14.6 (12.0-15.0) g/dL Hct 43.3 (37.0-47.0) % Plt Count 247 (150-375) k/mm3 BMP 10/14/24 14:24 Sodium 139 Potassium 3.7 Chloride 108 H Carbon Dioxide 21 L BUN 16 Creatinine 0.97 Glucose 128 H Calcium 9.9 Liver Function 10/14/24 Range/Units 14:24 Total Bilirubin 1.7 H (0.2-1.3) mg/dL AST 27 (14-36) U/L ALT 27 (6-35) U/L Alkaline Phosphatase 62 (38-126) U/L Albumin 4.4 (3.5-5.1) g/dL Urine 10/14/24 Range/Units 14:24 Urine Color Yellow (Yellow) Urine Appearance Cloudy H (Clear) Urine pH 8.0 (5.0-9.0) Ur Specific [place] 1.015 (1.001-1.035) Urine Protein Trace (Negative) mg/dL Urine Glucose (UA) Negative (Negative) mg/dL Assessment and Plan Assessment and plan (1) Obesity (BMI 30.0-34.9): Code(s): E66.9 - Obesity, unspecified Status: Acute (2) Obstruction of right ureteropelvic junction (UPJ) due to stone: Code(s): N20.1 - Calculus of ureter Status: Acute (3) Bilateral nephrolithiasis: Code(s): N20.0 - Calculus of kidney Status: Acute (4) Hydroureteronephrosis: Code(s): N13.30 - Unspecified hydronephrosis Status: Acute (5) Urinary tract infection: Qualifiers: Hematuria presence: with hematuria Urinary tract infection type: acute cystitis Qualified Code(s): N30.01 - Acute cystitis with hematuria Code(s): N39.0 - Urinary tract infection, site not specified Status: Acute Plan This is a 43-year-old female who presents to the ED with report of right flank pain with started about midnight worsened throughout the day radiated right lower abdomen. History of kidney stones in the past. Reports difficulty urinating and decreased urination nausea vomiting. No fever no hematuria. She follows with Dr. Spencer. In the ED she was mildly tachycardic afebrile. Laboratory studies showed WBC of 14 hemoglobin of 14.6 platelet of 247. Chem panel showed sodium of 139 potassium 3.7 chloride 108 bicarbonate 21 BUN 16 creatinine 0.9 blood glucose 128. LFTs with total bilirubin of 1.7 rest is normal. Urinalysis showed more than 100 WBC 3-5 urine RBC with 4+ bacteria and positive nitrates and leukocyte esterase. CT abdomen pelvis showed multiple bilateral renal stones with obstructing 1.2 cm stone at the right ureteropelvic junction resulting in mild right hydronephrosis. Urology was consulted and she underwent cystoscopy with right retrograde pyelography and right ureteral stent placement this evening. She is admitted in this setting for further treatment. Right obstructive uropathy with right ureteral stone 1.2 cm with mild right hydronephrosis status post right ureteral stent placement 10/14/2024 UTI will continue ceftriaxone. Urine culture pending Leukocytosis Bilateral kidney stones DVT prophylaxis SCDs Code status full code Hospitalist [facility] Advance Care Plan I have confirmed that the patient's Advanced Care Plan is present, code status is documented, or surrogate decision maker is listed in patient medical record.: Yes Medication Reconciliation I have utilized all available resources to obtain, update and review the patients current medications (includes all prescriptions, OTC, herbals, cannabis, and nutritional supplements).: Yes
[2024-10-15 00:23] VITALS: BP 137/91; PULSE 103; RESP 18; TEMP 37; O2SAT 94
[2024-10-15 04:02] VITALS: BP 115/72; PULSE 85; RESP 18; TEMP 36.6; O2SAT 95
--- NOTE | 2024-10-15 06:54 | WPDUROPN2 ---
Progress Note: A&P Assessment and Plan (1) Obstruction of right ureteropelvic junction (UPJ) due to stone: Code(s): N20.1 - Calculus of ureter Status: Acute (2) UTI (urinary tract infection): Qualifiers: Hematuria presence: without hematuria Urinary tract infection type: site unspecified Qualified Code(s): N39.0 - Urinary tract infection, site not specified Code(s): N39.0 - Urinary tract infection, site not specified Status: Acute Assessment and Plan: Ureteral colic much improved/resolved following right ureteral stent placement Continue ceftriaxone pending culture results Discharge once final cultures are available. I make arrangements for right ESWL in approximately 2 weeks Subjective Subjective Date/Time Seen: 10/15/24 06:54 Interval history: Feeling much much better following stent placement Review of Systems Cardiovascular: Cardiovascular: Denies chest pain, Denies lightheadedness, Denies palpitations and Denies dyspnea Respiratory: Respiratory: Denies dyspnea Gastrointestinal: Gastrointestinal: Denies diarrhea, Denies nausea and Denies vomiting Genitourinary: Genitourinary: Denies hematuria and Denies dysuria Endocrine: Endocrine: Denies palpitations Exam Const: General: no acute distress Resp: Effort & Inspection: normal respiratory effort GI: Inspection: non-distended GI Palp: No abdominal tenderness and No Guarding due to palpation present (GI) Auscultation: normal bowel sounds Objective Data Vital Signs Vital Signs: Vital Signs - 24 hr 10/14/24 13:58 10/14/24 15:33 10/14/24 16:30 Temperature 98.8 F 99.5 F Pulse Rate 108 H 87 Respiratory Rate 20 16 Blood Pressure 135/95 H 137/80 Pulse Oximetry 100 97 Oxygen Delivery Room Air Room Air Oxygen Flow Rate 10/14/24 17:27 10/14/24 17:40 10/14/24 17:55 Temperature 100.2 F H Pulse Rate 99 96 100 Respiratory Rate 16 20 18 Blood Pressure 120/70 96/60 L 113/75 Pulse Oximetry 98 98 100 Oxygen Delivery Simple Face Mask Simple Face Mask Simple Face Mask Oxygen Flow Rate 8 8 8 10/14/24 18:05 10/14/24 18:10 10/14/24 18:25 Temperature 99.3 F Pulse Rate 100 99 Respiratory Rate 20 17 Blood Pressure 112/78 121/81 Pulse Oximetry 95 94 Oxygen Delivery Room Air Room Air Oxygen Flow Rate 10/14/24 18:40 10/14/24 18:55 10/14/24 20:00 Temperature Pulse Rate 98 88 Respiratory Rate 16 14 Blood Pressure 121/74 106/70 Pulse Oximetry 95 96 Oxygen Delivery Room Air Room Air Room Air Oxygen Flow Rate 10/14/24 20:03 10/15/24 00:23 10/15/24 04:02 Temperature 98.2 F 98.6 F 97.8 F Pulse Rate 96 103 H 85 Respiratory Rate 18 18 18 Blood Pressure 140/86 137/91 H 115/72 Pulse Oximetry 99 94 95 Oxygen Delivery Oxygen Flow Rate Intake/Output Intake/Output: Intake & Output 10/12/24 10/13/24 10/14/24 10/15/24 23:59 23:59 23:59 23:59 Intake Total 2450 400 Output Total 350 Balance 2450 50 Meds/Results Medications: Active Medications Generic Name Dose Route Start Last Admin Trade Name Freq PRN Reason Stop Dose Admin Acetaminophen 650 mg 10/14/24 16:18 Acetaminophen 325 Mg Tablet PO Q4H PRN Mild Pain (1-3) or Fever Dextrose 12.5 gm 10/14/24 16:18 Dextrose 50% 25 Gm/50 Ml Syringe IV PUSH PRN PRN Hypoglycemia Protocol Fentanyl Citrate 25 mcg 10/14/24 16:55 Fentanyl Citrate Inj (*Crx) 100 Mcg/2 Ml Vial IV PUSH Q2M PRN Pain Glucagon 1 mg 10/14/24 16:18 Glucagon For Inj 1 Mg Vial IM PRN PRN Hypoglycemia Protocol Glucose 15 gm 10/14/24 16:18 Glucose Oral Gel 15 Gm Of Glucse In 37.5 Gm Tube PO PRN PRN Hypoglycemia Protocol Hydromorphone HCl 1 mg 10/14/24 16:18 10/14/24 23:32 Hydromorphone Hcl Inj (*Crx) 1 Mg/Ml Syr IV PUSH 1 mg Q4H PRN Administration Pain Rated 7-10 Dextrose 1,000 mls @ 100 mls/hr 10/14/24 16:18 Dextrose 5% 1,000 Ml IVPB PRN PRN Hypoglycemia Protocol Ceftriaxone Sodium 1 gm/ 50 mls @ 100 mls/hr 10/15/24 16:00 Sodium Chloride IVPB Q24H MERLY Ondansetron HCl 4 mg 10/14/24 16:18 10/14/24 22:53 Ondansetron Inj 4 Mg/2 Ml Vial IV PUSH 4 mg Q4H PRN Administration Nausea Radiology Results: ITS Impressions Abdomen/Pelvis CT 10/14/24 15:24 IMPRESSION: 1. Multiple bilateral renal stones with obstructing 1.2 cm stone at the right ureteropelvic junction resulting in mild right hydronephrosis. Abdomen X-Ray 10/14/24 16:17 IMPRESSION: 1. Bilateral nephrolithiasis with greater visibility of the 1.2 cm stone at the right ureteropelvic junction. Retrograde Pyelogram 10/14/24 17:27 IMPRESSION: 1. Right internal ureteral stent placement. Please refer to real-time procedural findings for details. Labs Labs: Laboratory Results - last 24 hr 10/14/24 14:24 WBC 14.0 H RBC 5.14 Hgb 14.6 Hct 43.3 MCV 84.2 MCH 28.4 MCHC 33.7 RDW 12.2 Plt Count 247 MPV 10.4 Immature Gran % (Auto) 0.4 Neut % (Auto) 88.9 H Lymph % (Auto) 6.0 L [place] % (Auto) 4.4 Eos % (Auto) 0.1 Baso % (Auto) 0.2 Lymph # (Auto) 0.84 L [place] # (Auto) 0.6 Eos # (Auto) 0.0 Baso # (Auto) 0.0 Abs Immat Gran (auto) 0.05 H Absolute Neuts (auto) 12.4 H Absolute Nucleated RBC 0.000 Nucleated RBC % 0.0 Sodium 139 Potassium 3.7 Chloride 108 H Carbon Dioxide 21 L Anion Gap 10 BUN 16 Creatinine 0.97 Estim Creat Clear Calc 89 Estimated GFR > 60 Glucose 128 H Calcium 9.9 Total Bilirubin 1.7 H AST 27 ALT 27 Alkaline Phosphatase 62 Total Protein 7.6 Albumin 4.4 Urine Color Yellow Urine Appearance Cloudy H Urine pH 8.0 Ur Specific [place] 1.015 Urine Protein Trace Urine Glucose (UA) Negative Urine Ketones Negative Ur Blood (Man) 1+ H Urine Nitrate Positive H Urine Bilirubin Negative Urine Urobilinogen 0.2 Leukocyte Esterase Rfl 3+ H Urine RBC 3-5 H Urine WBC >100 H Ur Squamous Epith Cells None seen Urine Bacteria 4+ Urine Casts 0-2
[2024-10-15] MEDS: HYDROcodone/acetaminophen (*CRX) 5-325 MG TABLET 1 TAB PO ×3 (08:18→21:20)
--- NOTE | 2024-10-15 08:54 | P.PNIM_ITS ---
Progress Note: A&P Assessment and Plan (1) Obstruction of right ureteropelvic junction (UPJ) due to stone: Code(s): N20.1 - Calculus of ureter Status: Acute Assessment and Plan: - CT A/P with multiple bilateral renal stones with obstructing 1.2 cm stone at the right ureteropelvic junction resulting in mild right hydronephrosis -s/p right ureteral stent placement 10/14/24. Will need to follow-up with Urology in 2 weeks. -creatinine stable -UA consistent with infection, continue IV Rocephin -pain control (2) Urinary tract infection: Qualifiers: Hematuria presence: with hematuria Urinary tract infection type: acute cystitis Qualified Code(s): N30.01 - Acute cystitis with hematuria Code(s): N39.0 - Urinary tract infection, site not specified Status: Acute Assessment and Plan: -UA with positive nitrates, 3+ LE, greater than 100 WBC - WBC 14, afebrile -previous urine culture 02/2024 with E coli, resistant to fluoroquinolones, sensitive to cephalosporins -continue IV Rocephin, await urine culture (3) Obesity (BMI 30.0-34.9): Code(s): E66.9 - Obesity, unspecified Status: Acute Plan DVT prophylaxis: SCDs Disposition: possibly home tomorrow Subjective Date/time seen: 10/15/24 08:54 Interval history: Patient is a 43 yo female who presented to the ED 10/15 with right flank pain. Patient seen and examined at bedside. Having some RLQ discomfort and mild nausea. Also with some mild dysuria. Patient requested thyroid testing. Review of Systems Review of Systems: All systems reviewed & are unremarkable except as noted in HPI and below Exam Narrative: General: NAD Eyes: EOMI ENT: neck supple Cardiovascular: Regular rate and rhythm Respiratory: Clear to auscultation, respirations even and unlabored on RA Gastrointestinal: Soft, mild RLQ tenderness Genitourinary: no suprapubic tenderness Musculoskeletal: No edema Skin: warm, dry Neuro: Alert. Psych: Mood appropriate Objective Data Vital Signs Vital Signs: Vital Signs - 24 hr 10/14/24 13:58 10/14/24 15:33 10/14/24 16:30 Temperature 98.8 F 99.5 F Pulse Rate 108 H 87 Respiratory Rate 20 16 Blood Pressure 135/95 H 137/80 Pulse Oximetry 100 97 Oxygen Delivery Room Air Room Air Oxygen Flow Rate 10/14/24 17:27 10/14/24 17:40 10/14/24 17:55 Temperature 100.2 F H Pulse Rate 99 96 100 Respiratory Rate 16 20 18 Blood Pressure 120/70 96/60 L 113/75 Pulse Oximetry 98 98 100 Oxygen Delivery Simple Face Mask Simple Face Mask Simple Face Mask Oxygen Flow Rate 8 8 8 10/14/24 18:05 10/14/24 18:10 10/14/24 18:25 Temperature 99.3 F Pulse Rate 100 99 Respiratory Rate 20 17 Blood Pressure 112/78 121/81 Pulse Oximetry 95 94 Oxygen Delivery Room Air Room Air Oxygen Flow Rate 10/14/24 18:40 10/14/24 18:55 10/14/24 20:00 Temperature Pulse Rate 98 88 Respiratory Rate 16 14 Blood Pressure 121/74 106/70 Pulse Oximetry 95 96 Oxygen Delivery Room Air Room Air Room Air Oxygen Flow Rate 10/14/24 20:03 10/15/24 00:23 10/15/24 04:02 Temperature 98.2 F 98.6 F 97.8 F Pulse Rate 96 103 H 85 Respiratory Rate 18 18 18 Blood Pressure 140/86 137/91 H 115/72 Pulse Oximetry 99 94 95 Oxygen Delivery Oxygen Flow Rate Intake/Output Intake/Output: Intake & Output 10/12/24 10/13/24 10/14/24 10/15/24 23:59 23:59 23:59 23:59 Intake Total 2450 400 Output Total 350 Balance 2450 50 Meds/Results Medications: Active Medications Generic Name Dose Route Start Last Admin Trade Name Jamesq PRN Reason Stop Dose Admin Acetaminophen 650 mg 10/14/24 16:18 Acetaminophen 325 Mg Tablet PO Q4H PRN Mild Pain (1-3) or Fever Hydrocodone Bitart/Acetaminophen 1 tab 10/15/24 07:26 10/15/24 08:18 Hydrocodone/Acetaminophen (*Crx) 5-325 Mg Tablet PO 1 tab Q6H PRN Administration Pain Rated 4-6 Dextrose 12.5 gm 10/14/24 16:18 Dextrose 50% 25 Gm/50 Ml Syringe IV PUSH PRN PRN Hypoglycemia Protocol Fentanyl Citrate 25 mcg 10/14/24 16:55 Fentanyl Citrate Inj (*Crx) 100 Mcg/2 Ml Vial IV PUSH Q2M PRN Pain Glucagon 1 mg 10/14/24 16:18 Glucagon For Inj 1 Mg Vial IM PRN PRN Hypoglycemia Protocol Glucose 15 gm 10/14/24 16:18 Glucose Oral Gel 15 Gm Of Glucse In 37.5 Gm Tube PO PRN PRN Hypoglycemia Protocol Hydromorphone HCl 1 mg 10/14/24 16:18 10/14/24 23:32 Hydromorphone Hcl Inj (*Crx) 1 Mg/Ml Syr IV PUSH 1 mg Q4H PRN Administration Pain Rated 7-10 Dextrose 1,000 mls @ 100 mls/hr 10/14/24 16:18 Dextrose 5% 1,000 Ml IVPB PRN PRN Hypoglycemia Protocol Ceftriaxone Sodium 1 gm/ 50 mls @ 100 mls/hr 10/15/24 16:00 Sodium Chloride IVPB Q24H MERLY Ondansetron HCl 4 mg 10/14/24 16:18 10/14/24 22:53 Ondansetron Inj 4 Mg/2 Ml Vial IV PUSH 4 mg Q4H PRN Administration Nausea Radiology Results: ITS Impressions Abdomen/Pelvis CT 10/14/24 15:24 IMPRESSION: 1. Multiple bilateral renal stones with obstructing 1.2 cm stone at the right ureteropelvic junction resulting in mild right hydronephrosis. Abdomen X-Ray 10/14/24 16:17 IMPRESSION: 1. Bilateral nephrolithiasis with greater visibility of the 1.2 cm stone at the right ureteropelvic junction. Retrograde Pyelogram 10/14/24 17:27 IMPRESSION: 1. Right internal ureteral stent placement. Please refer to real-time procedural findings for details. Labs Labs: Laboratory Results - last 24 hr 10/14/24 14:24 WBC 14.0 H RBC 5.14 Hgb 14.6 Hct 43.3 MCV 84.2 MCH 28.4 MCHC 33.7 RDW 12.2 Plt Count 247 MPV 10.4 Immature Gran % (Auto) 0.4 Neut % (Auto) 88.9 H Lymph % (Auto) 6.0 L [place] % (Auto) 4.4 Eos % (Auto) 0.1 Baso % (Auto) 0.2 Lymph # (Auto) 0.84 L [place] # (Auto) 0.6 Eos # (Auto) 0.0 Baso # (Auto) 0.0 Abs Immat Gran (auto) 0.05 H Absolute Neuts (auto) 12.4 H Absolute Nucleated RBC 0.000 Nucleated RBC % 0.0 Sodium 139 Potassium 3.7 Chloride 108 H Carbon Dioxide 21 L Anion Gap 10 BUN 16 Creatinine 0.97 Estim Creat Clear Calc 89 Estimated GFR > 60 Glucose 128 H Calcium 9.9 Total Bilirubin 1.7 H AST 27 ALT 27 Alkaline Phosphatase 62 Total Protein 7.6 Albumin 4.4 Urine Color Yellow Urine Appearance Cloudy H Urine pH 8.0 Ur Specific [place] 1.015 Urine Protein Trace Urine Glucose (UA) Negative Urine Ketones Negative Ur Blood (Man) 1+ H Urine Nitrate Positive H Urine Bilirubin Negative Urine Urobilinogen 0.2 Leukocyte Esterase Rfl 3+ H Urine RBC 3-5 H Urine WBC >100 H Ur Squamous Epith Cells None seen Urine Bacteria 4+ Urine Casts 0-2
[2024-10-15 09:36] LABS: Hematocrit 39.5 % (37.0-47.0); Hemoglobin 12.9 g/dL (12.0-15.0); Immature Granulocyte Percent A 0.6 % (0-0.5); Lymphocytes Absolute Auto 0.97 K/mm3 (0.9-3.2); Mean Corpuscular HGB Conc 32.7 g/dl (32-36); Mean Corpuscular Hemoglobin 28.1 pg (26-34); Mean Corpuscular Volume 86.1 fl (80-100); Nucleated Red Blood Cells Absolute Auto 0.000 K/mm3 (0.0-0.012); Nucleated Red Blood Cells Perc 0.0 % (0.0-0.2); Platelet Count Result 192 k/mm3 (150-375); Red Blood Count 4.59 M/mm3 (4.2-5.4); White Blood Count 14.4 K/mm3 (4.5-10.0)
[2024-10-15 09:54] LABS: Anion Gap 8 mmol/L (4-12); Blood Urea Nitrogen 20 mg/dL (7-17); Calcium 9.1 mg/dL (8.4-10.2); Carbon Dioxide 25 mmol/L (22-30); Chloride 107 mmol/L (98-107); Estimated CRCL calculation 90 ml/min; Estimated Glomerular Filt Rate > 60; Glucose 121 mg/dL (65-110); Potassium 3.7 mmol/L (3.4-5.0); Sodium 140 mmol/L (137-145)
[2024-10-15] MEDS: CALCIUM CARBONATE (TUMS) 500 MG (200 MG ELEMENTAL) PO (11:08)
[2024-10-15] MEDS: ONDANSETRON INJ 4 MG/2 ML VIAL IV PUSH (11:10)
[2024-10-15 14:00] VITALS: BP 117/70; PULSE 85; RESP 16; TEMP 36.7; O2SAT 97
[2024-10-15 15:52] LABS: Parathyroid Intact 26.1 pg/mL (14.5-75.2)
[2024-10-15 15:56] LABS: Free T4 Free Thyroxine 1.08 ng/dL (0.78-2.19)
[2024-10-15 16:10] LABS: Thyroid Stimulating Hormone Reflex 0.299 uIU/mL (0.465-4.68)
[2024-10-15] MEDS: cefTRIAXone 1 GM in SODIUM CHLORIDE 0.9% IV 50 ML 100 ML IVPB (16:30)
[2024-10-15 18:04] LABS: Free T4 Free Thyroxine Reflex 1.08 ng/dL (0.78-2.19)
[2024-10-15 18:44] LABS: Total Triiodothyronine (T3) 0.81 NG/ML (0.82-1.58)
[2024-10-15 20:01] VITALS: BP 120/74; PULSE 81; RESP 16; TEMP 36.6; O2SAT 98
[2024-10-16 04:34] VITALS: BP 101/58; PULSE 73; RESP 16; TEMP 36.4; O2SAT 96
[2024-10-16 05:44] LABS: Hematocrit 38.0 % (37.0-47.0); Hemoglobin 12.0 g/dL (12.0-15.0); Immature Granulocyte Percent A 0.3 % (0-0.5); Lymphocytes Absolute Auto 2.43 K/mm3 (0.9-3.2); Mean Corpuscular HGB Conc 31.6 g/dl (32-36); Mean Corpuscular Hemoglobin 27.9 pg (26-34); Mean Corpuscular Volume 88.4 fl (80-100); Nucleated Red Blood Cells Absolute Auto 0.000 K/mm3 (0.0-0.012); Nucleated Red Blood Cells Perc 0.0 % (0.0-0.2); Platelet Count Result 205 k/mm3 (150-375); Red Blood Count 4.30 M/mm3 (4.2-5.4); White Blood Count 9.4 K/mm3 (4.5-10.0)
[2024-10-16 06:14] LABS: Anion Gap 4 mmol/L (4-12); Blood Urea Nitrogen 23 mg/dL (7-17); Calcium 8.5 mg/dL (8.4-10.2); Carbon Dioxide 25 mmol/L (22-30); Chloride 109 mmol/L (98-107); Estimated CRCL calculation 85 ml/min; Estimated Glomerular Filt Rate 59; Glucose 104 mg/dL (65-110); Potassium 3.9 mmol/L (3.4-5.0); Sodium 138 mmol/L (137-145)
[2024-10-16] MEDS: HYDROcodone/acetaminophen (*CRX) 5-325 MG TABLET 1 TAB PO ×3 (07:40→20:30)
--- NOTE | 2024-10-16 08:25 | WPDUROPN2 ---
Progress Note: A&P Assessment and Plan (1) Calculus of proximal right ureter: Code(s): N20.1 - Calculus of ureter Status: Acute (2) Obstruction of right ureteropelvic junction (UPJ) due to stone: Code(s): N20.1 - Calculus of ureter Status: Acute (3) UTI (urinary tract infection): Qualifiers: Hematuria presence: without hematuria Urinary tract infection type: site unspecified Qualified Code(s): N39.0 - Urinary tract infection, site not specified Code(s): N39.0 - Urinary tract infection, site not specified Status: Acute Assessment and Plan: Ureteral colic much improved/resolved following right ureteral stent placement Continue ceftriaxone pending culture results Discharge once final cultures are available. Dr. Spencer to make arrangements for right ESWL in approximately 2 weeks. Subjective Subjective Date/Time Seen: 10/16/24 08:25 Interval history: NAEO, reports improvement in pain control, tolerating diet. Review of Systems Review of Systems: All systems reviewed & are unremarkable except as noted in HPI and below Exam Const: General: comfortable and no acute distress Eyes: General: appearance normal, both eyes and all related structures Resp: Effort & Inspection: normal respiratory effort Cardio: Rate: regular rate GI: Inspection: non-distended Skin: General skin exam: normal color Neuro: Speech: normal speech Extrem: General: normal to inspection Objective Data Vital Signs Vital Signs: Vital Signs - 24 hr 10/15/24 14:00 10/15/24 20:01 10/16/24 04:34 Temperature 98.1 F 97.8 F 97.6 F Pulse Rate 85 81 73 Respiratory Rate 16 16 16 Blood Pressure 117/70 120/74 101/58 L Pulse Oximetry 97 98 96 Oxygen Delivery 10/16/24 07:30 Temperature Pulse Rate Respiratory Rate Blood Pressure Pulse Oximetry Oxygen Delivery Room Air Intake/Output Intake/Output: Intake & Output 10/13/24 10/14/24 10/15/24 10/16/24 23:59 23:59 23:59 23:59 Intake Total 2450 2170 250 Output Total 650 500 Balance 2450 1520 -250 Meds/Results Medications: Active Medications Generic Name Dose Route Start Last Admin Trade Name Freq PRN Reason Stop Dose Admin Acetaminophen 650 mg 10/14/24 16:18 Acetaminophen 325 Mg Tablet PO Q4H PRN Mild Pain (1-3) or Fever Hydrocodone Bitart/Acetaminophen 1 tab 10/15/24 07:26 10/16/24 07:40 Hydrocodone/Acetaminophen (*Crx) 5-325 Mg Tablet PO 1 tab Q6H PRN Administration Pain Rated 4-6 Calcium Carbonate 200 mg 10/15/24 10:21 10/15/24 11:08 Calcium Carbonate (Tums) 500 Mg (200 Mg Elemental) PO 200 mg Q6H PRN Administration Indigestion Dextrose 12.5 gm 10/14/24 16:18 Dextrose 50% 25 Gm/50 Ml Syringe IV PUSH PRN PRN Hypoglycemia Protocol Fentanyl Citrate 25 mcg 10/14/24 16:55 Fentanyl Citrate Inj (*Crx) 100 Mcg/2 Ml Vial IV PUSH Q2M PRN Pain Glucagon 1 mg 10/14/24 16:18 Glucagon For Inj 1 Mg Vial IM PRN PRN Hypoglycemia Protocol Glucose 15 gm 10/14/24 16:18 Glucose Oral Gel 15 Gm Of Glucse In 37.5 Gm Tube PO PRN PRN Hypoglycemia Protocol Dextrose 1,000 mls @ 100 mls/hr 10/14/24 16:18 Dextrose 5% 1,000 Ml IVPB PRN PRN Hypoglycemia Protocol Ceftriaxone Sodium 1 gm/ 50 mls @ 100 mls/hr 10/15/24 16:00 10/15/24 16:30 Sodium Chloride IVPB 100 mls/hr Q24H MERLY Administration Ondansetron HCl 4 mg 10/14/24 16:18 10/15/24 11:10 Ondansetron Inj 4 Mg/2 Ml Vial IV PUSH 4 mg Q4H PRN Administration Nausea Radiology Results: ITS Impressions Abdomen/Pelvis CT 10/14/24 15:24 IMPRESSION: 1. Multiple bilateral renal stones with obstructing 1.2 cm stone at the right ureteropelvic junction resulting in mild right hydronephrosis. Abdomen X-Ray 10/14/24 16:17 IMPRESSION: 1. Bilateral nephrolithiasis with greater visibility of the 1.2 cm stone at the right ureteropelvic junction. Retrograde Pyelogram 10/14/24 17:27 IMPRESSION: 1. Right internal ureteral stent placement. Please refer to real-time procedural findings for details. Labs Labs: Laboratory Results - last 24 hr 10/15/24 10/15/24 10/15/24 09:30 09:33 09:38 WBC 14.4 H RBC 4.59 Hgb 12.9 Hct 39.5 MCV 86.1 MCH 28.1 MCHC 32.7 RDW 12.4 Plt Count 192 MPV 10.2 Immature Gran % (Auto) 0.6 H Neut % (Auto) 87.0 H Lymph % (Auto) 6.7 L [place] % (Auto) 5.6 Eos % (Auto) 0.0 Baso % (Auto) 0.1 L Lymph # (Auto) 0.97 [place] # (Auto) 0.8 H Eos # (Auto) 0.0 Baso # (Auto) 0.0 Abs Immat Gran (auto) 0.08 H Absolute Neuts (auto) 12.6 H Absolute Nucleated RBC 0.000 Nucleated RBC % 0.0 Sodium 140 Potassium 3.7 Chloride 107 Carbon Dioxide 25 Anion Gap 8 BUN 20 H Creatinine 0.96 Estim Creat Clear Calc 90 Estimated GFR > 60 Glucose 121 H Calcium 9.1 TSH (Reflex) 0.299 L Free T4 1.08 Total T3 PTH Intact 26.1 10/15/24 10/16/24 09:38 05:17 WBC 9.4 RBC 4.30 Hgb 12.0 Hct 38.0 MCV 88.4 MCH 27.9 MCHC 31.6 L RDW 12.6 Plt Count 205 MPV 10.6 H Immature Gran % (Auto) 0.3 Neut % (Auto) 62.5 Lymph % (Auto) 25.8 [place] % (Auto) 10.2 H Eos % (Auto) 0.9 Baso % (Auto) 0.3 Lymph # (Auto) 2.43 [place] # (Auto) 1.0 H Eos # (Auto) 0.1 Baso # (Auto) 0.0 Abs Immat Gran (auto) 0.03 Absolute Neuts (auto) 5.9 Absolute Nucleated RBC 0.000 Nucleated RBC % 0.0 Sodium 138 Potassium 3.9 Chloride 109 H Carbon Dioxide 25 Anion Gap 4 BUN 23 H Creatinine 1.02 H Estim Creat Clear Calc 85 Estimated GFR 59 Glucose 104 Calcium 8.5 TSH (Reflex) Free T4 1.08 Total T3 0.81 L PTH Intact
--- NOTE | 2024-10-16 08:37 | P.PNIM_ITS ---
Progress Note: A&P Assessment and Plan (1) Obstruction of right ureteropelvic junction (UPJ) due to stone: Code(s): N20.1 - Calculus of ureter Status: Acute Assessment and Plan: - CT A/P with multiple bilateral renal stones with obstructing 1.2 cm stone at the right ureteropelvic junction resulting in mild right hydronephrosis -s/p right ureteral stent placement 10/14/24. Will need to follow-up with Urology in 2 weeks. -creatinine stable -UA consistent with infection, continue IV Rocephin -pain control (2) Urinary tract infection: Qualifiers: Hematuria presence: with hematuria Urinary tract infection type: acute cystitis Qualified Code(s): N30.01 - Acute cystitis with hematuria Code(s): N39.0 - Urinary tract infection, site not specified Status: Acute Assessment and Plan: -UA with positive nitrates, 3+ LE, greater than 100 WBC - initial WBC 14. Leukocytosis resolved, remains afebrile -previous urine culture 02/2024 with E coli, resistant to fluoroquinolones, sensitive to cephalosporins - urine culture with gram-negative bacilli, awaiting speciation and sensitivities -continue IV Rocephin (3) Obesity (BMI 30.0-34.9): Code(s): E66.9 - Obesity, unspecified Status: Acute Plan Patient requested TFTs and parathyroid hormone check. TSH 0.299, free T3 0.81, free T4 WNL. PTH WNL. Patient denies over symptoms. Patient encouraged to follow-up with her primary care physician for consideration of repeat testing if there is clinical concern. DVT prophylaxis: SCDs Disposition: possibly home tomorrow Subjective Date/time seen: 10/16/24 08:37 Interval history: Patient seen and examined at bedside. Still having some RLQ cramping. Tolerating a diet. Review of Systems Review of Systems: All systems reviewed & are unremarkable except as noted in HPI and below Exam Narrative: General: NAD Eyes: EOMI ENT: neck supple Cardiovascular: Regular rate and rhythm Respiratory: Clear to auscultation, respirations even and unlabored on RA Gastrointestinal: Soft, mild RLQ tenderness Genitourinary: no suprapubic tenderness Musculoskeletal: No edema Skin: warm, dry Neuro: Alert. Psych: Mood appropriate Objective Data Vital Signs Vital Signs: Vital Signs - 24 hr 10/15/24 14:00 10/15/24 20:01 10/16/24 04:34 Temperature 98.1 F 97.8 F 97.6 F Pulse Rate 85 81 73 Respiratory Rate 16 16 16 Blood Pressure 117/70 120/74 101/58 L Pulse Oximetry 97 98 96 Oxygen Delivery 10/16/24 07:30 Temperature Pulse Rate Respiratory Rate Blood Pressure Pulse Oximetry Oxygen Delivery Room Air Intake/Output Intake/Output: Intake & Output 10/13/24 10/14/24 10/15/24 10/16/24 23:59 23:59 23:59 23:59 Intake Total 2450 2170 250 Output Total 650 500 Balance 2450 1520 -250 Meds/Results Medications: Active Medications Generic Name Dose Route Start Last Admin Trade Name Freq PRN Reason Stop Dose Admin Acetaminophen 650 mg 10/14/24 16:18 Acetaminophen 325 Mg Tablet PO Q4H PRN Mild Pain (1-3) or Fever Hydrocodone Bitart/Acetaminophen 1 tab 10/15/24 07:26 10/16/24 07:40 Hydrocodone/Acetaminophen (*Crx) 5-325 Mg Tablet PO 1 tab Q6H PRN Administration Pain Rated 4-6 Calcium Carbonate 200 mg 10/15/24 10:21 10/15/24 11:08 Calcium Carbonate (Tums) 500 Mg (200 Mg Elemental) PO 200 mg Q6H PRN Administration Indigestion Dextrose 12.5 gm 10/14/24 16:18 Dextrose 50% 25 Gm/50 Ml Syringe IV PUSH PRN PRN Hypoglycemia Protocol Fentanyl Citrate 25 mcg 10/14/24 16:55 Fentanyl Citrate Inj (*Crx) 100 Mcg/2 Ml Vial IV PUSH Q2M PRN Pain Glucagon 1 mg 10/14/24 16:18 Glucagon For Inj 1 Mg Vial IM PRN PRN Hypoglycemia Protocol Glucose 15 gm 10/14/24 16:18 Glucose Oral Gel 15 Gm Of Glucse In 37.5 Gm Tube PO PRN PRN Hypoglycemia Protocol Dextrose 1,000 mls @ 100 mls/hr 10/14/24 16:18 Dextrose 5% 1,000 Ml IVPB PRN PRN Hypoglycemia Protocol Ceftriaxone Sodium 1 gm/ 50 mls @ 100 mls/hr 10/15/24 16:00 10/15/24 16:30 Sodium Chloride IVPB 100 mls/hr Q24H MERLY Administration Ondansetron HCl 4 mg 10/14/24 16:18 10/15/24 11:10 Ondansetron Inj 4 Mg/2 Ml Vial IV PUSH 4 mg Q4H PRN Administration Nausea Radiology Results: ITS Impressions Abdomen/Pelvis CT 10/14/24 15:24 IMPRESSION: 1. Multiple bilateral renal stones with obstructing 1.2 cm stone at the right ureteropelvic junction resulting in mild right hydronephrosis. Abdomen X-Ray 10/14/24 16:17 IMPRESSION: 1. Bilateral nephrolithiasis with greater visibility of the 1.2 cm stone at the right ureteropelvic junction. Retrograde Pyelogram 10/14/24 17:27 IMPRESSION: 1. Right internal ureteral stent placement. Please refer to real-time procedural findings for details. Labs Labs: Laboratory Results - last 24 hr 10/15/24 10/15/24 10/15/24 09:30 09:33 09:38 WBC 14.4 H RBC 4.59 Hgb 12.9 Hct 39.5 MCV 86.1 MCH 28.1 MCHC 32.7 RDW 12.4 Plt Count 192 MPV 10.2 Immature Gran % (Auto) 0.6 H Neut % (Auto) 87.0 H Lymph % (Auto) 6.7 L [place] % (Auto) 5.6 Eos % (Auto) 0.0 Baso % (Auto) 0.1 L Lymph # (Auto) 0.97 [place] # (Auto) 0.8 H Eos # (Auto) 0.0 Baso # (Auto) 0.0 Abs Immat Gran (auto) 0.08 H Absolute Neuts (auto) 12.6 H Absolute Nucleated RBC 0.000 Nucleated RBC % 0.0 Sodium 140 Potassium 3.7 Chloride 107 Carbon Dioxide 25 Anion Gap 8 BUN 20 H Creatinine 0.96 Estim Creat Clear Calc 90 Estimated GFR > 60 Glucose 121 H Calcium 9.1 TSH (Reflex) 0.299 L Free T4 1.08 Total T3 PTH Intact 26.1 10/15/24 10/16/24 09:38 05:17 WBC 9.4 RBC 4.30 Hgb 12.0 Hct 38.0 MCV 88.4 MCH 27.9 MCHC 31.6 L RDW 12.6 Plt Count 205 MPV 10.6 H Immature Gran % (Auto) 0.3 Neut % (Auto) 62.5 Lymph % (Auto) 25.8 [place] % (Auto) 10.2 H Eos % (Auto) 0.9 Baso % (Auto) 0.3 Lymph # (Auto) 2.43 [place] # (Auto) 1.0 H Eos # (Auto) 0.1 Baso # (Auto) 0.0 Abs Immat Gran (auto) 0.03 Absolute Neuts (auto) 5.9 Absolute Nucleated RBC 0.000 Nucleated RBC % 0.0 Sodium 138 Potassium 3.9 Chloride 109 H Carbon Dioxide 25 Anion Gap 4 BUN 23 H Creatinine 1.02 H Estim Creat Clear Calc 85 Estimated GFR 59 Glucose 104 Calcium 8.5 TSH (Reflex) Free T4 1.08 Total T3 0.81 L PTH Intact
[2024-10-16 14:00] VITALS: BP 104/71; PULSE 81; RESP 20; TEMP 37.1; O2SAT 96
[2024-10-16] MEDS: cefTRIAXone 1 GM in SODIUM CHLORIDE 0.9% IV 50 ML 100 ML IVPB (15:09)
[2024-10-16 20:10] VITALS: BP 105/71; PULSE 73; RESP 16; TEMP 37.1; O2SAT 99
[2024-10-17 04:09] VITALS: BP 105/55; PULSE 68; RESP 16; TEMP 36.4; O2SAT 97
[2024-10-17] MEDS: HYDROcodone/acetaminophen (*CRX) 5-325 MG TABLET 1 TAB PO (07:49)
[2024-10-17 08:14] LABS: Hematocrit 40.8 % (37.0-47.0); Hemoglobin 12.9 g/dL (12.0-15.0); Immature Granulocyte Percent A 0.4 % (0-0.5); Lymphocytes Absolute Auto 1.69 K/mm3 (0.9-3.2); Mean Corpuscular HGB Conc 31.6 g/dl (32-36); Mean Corpuscular Hemoglobin 27.6 pg (26-34); Mean Corpuscular Volume 87.4 fl (80-100); Nucleated Red Blood Cells Absolute Auto 0.000 K/mm3 (0.0-0.012); Nucleated Red Blood Cells Perc 0.0 % (0.0-0.2); Platelet Count Result 214 k/mm3 (150-375); Red Blood Count 4.67 M/mm3 (4.2-5.4); White Blood Count 7.0 K/mm3 (4.5-10.0)
[2024-10-17 08:37] LABS: Anion Gap 6 mmol/L (4-12); Blood Urea Nitrogen 22 mg/dL (7-17); Calcium 9.2 mg/dL (8.4-10.2); Carbon Dioxide 25 mmol/L (22-30); Chloride 107 mmol/L (98-107); Estimated CRCL calculation 89 ml/min; Estimated Glomerular Filt Rate > 60; Glucose 101 mg/dL (65-110); Potassium 3.8 mmol/L (3.4-5.0); Sodium 138 mmol/L (137-145)
--- NOTE | 2024-10-17 11:24 | P.DS_ITS ---
DS: Admitting Diagnosis Discharge Date 10/17/24 Admitting Diagnosis - R ureterolithiasis - R hydronephrosis - urinary tract infection DS: Discharge Diagnosis Discharge Diagnosis (1) Obstruction of right ureteropelvic junction (UPJ) due to stone: Code(s): N20.1 - Calculus of ureter Status: Acute (2) Urinary tract infection: Qualifiers: Hematuria presence: with hematuria Urinary tract infection type: acute cystitis Qualified Code(s): N30.01 - Acute cystitis with hematuria Code(s): N39.0 - Urinary tract infection, site not specified Status: Acute (3) Obesity (BMI 30.0-34.9): Code(s): E66.9 - Obesity, unspecified Status: Acute DS: Summary Hospital Course Reason for hospitalization: - R ureterolithiasis - R hydronephrosis - urinary tract infection Hospital Course: Patient is a 43-year-old female with history of kidney stones who presented to the ED with report of right flank pain. Laboratory studies showed WBC of 14 hemoglobin of 14.6 platelet of 247. Chem panel showed sodium of 139 potassium 3.7 chloride 108 bicarbonate 21 BUN 16 creatinine 0.9 blood glucose 128. LFTs with total bilirubin of 1.7 rest is normal. Urinalysis showed more than 100 WBC 3-5 urine RBC with 4+ bacteria and positive nitrates and leukocyte esterase. CT abdomen pelvis showed multiple bilateral renal stones with obstructing 1.2 cm stone at the right ureteropelvic junction resulting in mild right hydronephrosis. Urology was consulted and she underwent cystoscopy with right retrograde pyelography and right ureteral stent placement 10/14/[address] Spencer. She had an uncomplicated post-operative course. Urine culture resulted with gram negative bacilli. Previous urine culture 02/2024 with E coli, resistant to fluoroquinolones, sensitive to cephalosporins and Bactrim. Patient received IV Rocephin x4 doses with significant improvement in symptoms. She remained afebrile and leukocytosis resolved. Case was discussed with urology who agreed patient could be discharged on Bactrim to completed 7-day course and we will follow her urine culture on discharge. Will call with antibiotic adjustment if necessary. She will follow-up with urology in 2 weeks. Pain well-controlled on discharge. Patient requested TFTs and parathyroid hormone check. TSH 0.299, free T3 0.81, free T4 WNL. PTH WNL. Patient denies overt symptoms. Patient encouraged to follow-up with her primary care physician for consideration of repeat testing if there is clinical concern. Patient was discharged home in stable condition. Strict return precautions discussed. Time Spent with Patient Time attestation: Total time spent providing and/or coordinating discharge services: Time spent: Greater than 30 minutes Exam Narrative: General: NAD Eyes: EOMI ENT: neck supple Cardiovascular: Regular rate and rhythm Respiratory: Clear to auscultation, respirations even and unlabored on RA Gastrointestinal: Soft, non tender Genitourinary: no suprapubic tenderness Musculoskeletal: No edema Skin: warm, dry Neuro: Alert. Psych: Mood appropriate DS: Data Data Completed and Pending Completed studies during hospitalization: ITS Impressions Abdomen/Pelvis CT 10/14/24 15:24 IMPRESSION: 1. Multiple bilateral renal stones with obstructing 1.2 cm stone at the right ureteropelvic junction resulting in mild right hydronephrosis. Abdomen X-Ray 10/14/24 16:17 IMPRESSION: 1. Bilateral nephrolithiasis with greater visibility of the 1.2 cm stone at the right ureteropelvic junction. Retrograde Pyelogram 10/14/24 17:27 IMPRESSION: 1. Right internal ureteral stent placement. Please refer to real-time procedural findings for details. Labs on day of discharge: Labs from last 24 hours 10/17/24 08:08 WBC 7.0 RBC 4.67 Hgb 12.9 Hct 40.8 MCV 87.4 MCH 27.6 MCHC 31.6 L RDW 12.5 Plt Count 214 MPV 9.9 Immature Gran % (Auto) 0.4 Neut % (Auto) 62.5 Lymph % (Auto) 24.3 [place] % (Auto) 8.2 Eos % (Auto) 4.0 Baso % (Auto) 0.6 Lymph # (Auto) 1.69 [place] # (Auto) 0.6 Eos # (Auto) 0.3 Baso # (Auto) 0.0 Abs Immat Gran (auto) 0.03 Absolute Neuts (auto) 4.4 Absolute Nucleated RBC 0.000 Nucleated RBC % 0.0 Sodium 138 Potassium 3.8 Chloride 107 Carbon Dioxide 25 Anion Gap 6 BUN 22 H Creatinine 0.97 Estim Creat Clear Calc 89 Estimated GFR > 60 Glucose 101 Calcium 9.2 Preliminary micro results at discharge 10/14/24 14:24 - Preliminary Urine Clean Catch Gram negative bacilli isolated Discharge Plan Discharge Attending physician on discharge: Roberto Fay Consulting providers: Andrew Spencre Discharging Clinician: Hawa Veloz Anticipated Discharge Date/Time: 10/17/24 11:18 Patient Disposition: Home Activity: as tolerated Diet: as tolerated Discharge Instructions: Take all medications as prescribed. Finish antibiotics if prescribed, even if you are feeling better. Follow-up with your primary care provider in one week. We will follow-up on urine culture results and call you if any changes need to be made to your antibiotics. Follow-up with your primary care provider to discuss repeating thyroid tests as your TSH was mildly low, but your free t4 was normal. Return to the emergency department if you develop chest pain, shortness of breath, persistent fever >100.4, confusion, loss of consciousness, severe flank pain, nausea/vomiting. Patient Instructions: How to Stop Smoking (DC), Electronic Cigarettes and Your Health (GEN), Antibiotic Form Patient Language: Kyr[place]z Follow-up/Referrals: Hilda Tan MD [Primary Care Provider, Family Practice] - Call for Appointment Referral Note: 1 week , hospital follow-up Andrew Spencer MD [Physician, Urology] - Call for Appointment Referral Note: in 2 weeks for stone removal Discharge Medications: New hydrocodone-acetaminophen 5-300 mg tablet 1 tablet PO Q6H PRN (Reason: pain) Qty: 12 0RF sulfamethoxazole-trimethoprim [Bactrim DS] 800-160 mg tablet 1 tablet PO Q12H 3 Days Qty: 6 0RF Date of admission: 10/14/24 16:18 Primary Care Provider: Hilda Tan Admitting Provider: Trev Gary Attending physician on admission: Trev Gary Condition: Stable
[2024-10-17] MEDS: cefTRIAXone 1 GM in SODIUM CHLORIDE 0.9% IV 50 ML 100 ML IVPB (12:04)
--- NOTE | 2024-10-17 12:04 | PC.NURSE ---
RN spoke with pharmacist and okay to give ABX early as patient is discharging today. RN updated hospitalist Hawa.
--- NOTE | 2024-10-26 11:22 | PC.NURSE ---
Renu Veloz PA aware of urine cx results. PA is to call pt and order antx.
== END 2024-10-17 13:45 | disposition home or self-care (01) ==
LOC: ANHED 14:52 → ANHSURGERY 15:51 → ANH3MED 19:50
PROVIDERS: Emergency Medicine; Physician Assistant; Urology; Admitting Provider Internal Medicine; Emergency Provider Physician Assistant; PCP Family Medicine; Visit Provider Internal Medicine
PROC: (CPT 52352; principal; 2024-10-14 16:30)
DX: N13.2 Hydronephrosis with renal and ureteral calculous obstruction (principal); N30.01 Acute cystitis with hematuria; Z87.442 Personal history of urinary calculi; F17.290 Nicotine dependence, other tobacco product, uncomplicated; E66.9 Obesity, unspecified; Z68.35 Body mass index [BMI] 35.0-35.9, adult; Z80.8 Family history of malignant neoplasm of other organs or systems; Z82.49 Family history of ischemic heart disease and other diseases of the circulatory system; Z82.3 Family history of stroke
CPT/HCPCS: 52332; 36415; 74018; 74176; 74420; 80048; 80053; 81001; 83970; 84439; 84443; 84480; 85025; 87086; 96361; 96365; 96375; 96376; 99285; A9270; C1758; C1769; C2617; G0378; J0330; J0696; J1100; J1171; J1885; J2003; J2250; J2405; J2704; J3010; J7030; J7120; Q9966

== ENCOUNTER 2024-10-22 00:51 | Day surgery (SDC) | payer BC, SELFPAY ==
--- OUTSIDE RECORDS SUMMARY | 2024-07-05 06:00 | XMS_ITS | Continuity of Care Document ---
Author Name [facility] Organization [facility] Care Team Providers Care Digital Media Buyer Name Role Phone [facility] Unavailable Unavailable Problems Combined list of problems from Department of Defense and Veterans [facility] facilities. It does not include entries that were removed or entered in error. Problem Status Onset Date Problem Type Date of Resolution Comments Source Diagnosis: ICD-10-CM Z63.6 Dependent relative needing care at home Active Diagnosis [facility] Encounters Combined list of: 1) Encounters from Department of Veterans Affairs facilities going backup to the last 18 months, not all [place] inpatient encounters are included; 2) Encounters from the Department of [facility] facilities going backup to 280 months. Location Location Details Encounter Type Encounter Number Reason For Visit Attending Provider ADM Date DC Date Status Disposition Source [facility] ASSMT/REAS SESSMENT [id number] Diagnos is: ICD-10- CM Z63.6 Depende nt relativ e needing care at home FAVIOLA SEO CY L 07/31 [facility] Outpatient Encounter [id number] 11/26 [facility] ASSMT/REAS SESSMENT [id number] Diagnos is: ICD-10- CM Z63.6 Depende nt relativ e needing care at home GABBISTA CY L 12/02 [facility] Outpatient Encounter [id number] 03/12 [facility] ASSMT/REAS SESSMENT [id number] Diagnos is: ICD-10- CM Z63.6 Depende nt relativ e needing care at home FAVIOLA SEO CY L 03/17 [facility] [place] [facility]/[place] [place] [id number] Diagnos is: ICD-10- CM Z63.6 Depende nt relativ e needing care at home FAVIOLA SEO CY L 07/05 [facility] N
[2024-10-19 09:12] VITALS: BMI 34.4
--- NOTE | 2024-10-19 09:17 | PC.NURSE ---
Report to the Outpatient Waiting Room, entrance under the green pavilion located off [facility], at time _0730_ on date _[id number]_. Planned Procedure Time: _0930_.? Time changes happen often and if your time is changed the preop area will call you the afternoon before. - You and your visitor will be asked to self-screen and do not enter if you have any COVID symptoms. Please call surgeon if you need to reschedule. - A mask is optional within the hospital at this time. Patients may have clear liquids (water, carbonated beverages, clear teas, apple juice) until 3 hours prior to surgery with a maximum of 20 ounces. - No food from midnight until time of surgery and no smoking, or chewing tobacco (or any form of nicotine). No chewing gum, candy or mints. Take only the following medications with a SIP of water on the morning of surgery: __Bactrim DS and if needed Hydrocodone. DO NOT STOP ANY OF YOUR OTHER PRESCRIPTION MEDICATIONS PRIOR TO SURGERY EXCEPT THE FOLLOWING Hold all vitamins and supplements for 3 days per anesthesiologist. Medications to discontinue per physician Date to take last dose Please no make-up, nail sri lankan, hairspray, perfume, deodorant, or body powder the day of surgery.? No jewelry (including any body piercings) or valuables the day of surgery, leave them at home.? Please take a shower or bath the night before, or the morning of, surgery with an antibacterial soap.? Wear comfortable, loose fitting clothing.? - Jewelry must be removed prior to entering the operating room.? Rings and piercings that are not removed may be cut off. - The hospital will not accept responsibility for valuables.? - Please leave all valuables, including medications, at home the day of surgery. If you are going home after surgery, a licensed class b driver must drive you home.? - NO public transportation without another adult if you receive anesthesia. - We recommend that an adult stay with you for 24 hours following discharge. - We also recommend that you do not drive, make important decision, drink alcoholic beverages, or take any drugs that were not prescribed by your health care provider for at least 24 hours after your discharge time. Follow any additional instructions given to you from your surgeon. Telephone instructions given to __Linnette___and asked if any additional questions and then verbalized understanding. Patient advised to call surgeon office or pre surgery nurse liaison [phone] if any additional questions.
--- NOTE | 2024-10-20 19:00 | P.HP_ITS ---
History of Present Illness History of Present Illness Consent: Risks, benefits, and alternatives have been discussed and questions answered. Patient agrees to proceed with procedure. Chief complaint: right upj stone Narrative: Linnette Rice is a 44 year old female who was admitted 1 week ago with a large obstructing right UPJ calculus and urinary tract infection. A right ureteral stent was placed. Urine culture subsequently grew E coli for which she has been adequately treated. She now presents for right ESWL. She is aware of risk including, but not limited to, need for additional procedures, hematuria, perinephric hematoma. 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 Code status: Full code. Smoking packs per day: 1 Smoking cigarettes per day: 20.0 Years smoked: 10 Smoking pack-years: 10.00 Smoking status: Former smoker Tobacco type: cigarettes and e-cigarettes/vaping Additional smoking assessment comments: Vaping currenetly Alcohol intake: current Substance use: never Substance use type: marijuana Other substance usage details: Daily Do You Feel Safe in your Home?: Yes Lack of Transportation: No Lack of Food: Never True Current Housing: I Have Housing Concerned About Future Housing: No Difficulty Paying Gas/Electric Bills: No Difficulty Paying for Meds: No Currently Unemployed: No Education: Trade/Vocational Certificate Difficulty w/ Childcare or Family Care: No Living arrangements: with family Additional living arrangements comments: Lives with spouse. They have 2 children. Occupation/Education: occupation Spiritual care concerns: No Meds Home Medications and Allergies Home Medications ?Medication ?Instructions ?Recorded ?Confirmed ?Type hydrocodone 5 mg-acetaminophen 300 1 tablet PO Q6H PRN pain #12 tabs 10/17/24 10/19/24 Rx mg tablet sulfamethoxazole 800 1 tablet PO Q12H 3 days #6 t abs 10/17/24 10/19/24 Rx mg-trimethoprim 160 mg tablet (Bactrim DS) Allergies Allergy/AdvReac Type Severity Reaction Status Date / Time Penicillins Allergy Unknown UNKNOWN Verified 10/19/24 09:11 morphine AdvReac Mild Itching Verified 10/19/24 09:11 Exam Const: General: no acute distress Resp: Effort & Inspection: normal respiratory effort GI: Inspection: non-distended GI Palp: No abdominal tenderness and No Guarding due to palpation present (GI) Auscultation: normal bowel sounds Assessment and Plan Assessment and plan (1) Calculus of proximal right ureter: Code(s): N20.1 - Calculus of ureter Status: Acute Assessment and Plan: * Right ESWL
[2024-10-22] VITALS (8 sets, daily range): BP systolic 115–135; BP diastolic 78–89; PULSE 69–93; RESP 12–25; TEMP 36.2–36.6; O2SAT 93–100
--- NOTE | ~2024-10-22 | XR_ITS ---
EXAMINATION: XR abdomen/kub 1V, 10/22/2024 7:40 CDT HISTORY: ESWL COMPARISON: No comparisons available. Technique: 2 view. Findings: Bowel gas pattern unremarkable. No obstruction. There are left renal calculi the largest 2 mm. No acute osseous abnormality. Right-sided ureteral stent noted with renal calculi the largest lower pole 6 x 4 mm. Impression: 1. Right stent placement with bilateral renal calculi Reviewed, dictated and finalized at location A. Impression: 1. Right stent placement with bilateral renal calculi
--- OUTSIDE RECORDS SUMMARY | 2024-10-22 00:54 | XMS_ITS | Encounter Summary ---
Author Organization [facility] Address [address] [place] [address] Care Team Providers Care Police Stenographer Name Role Phone Phu Valladares Primary Care Provider + Encounter Details Date Type Department Care Team (Late st Contact Info) Description 12/05/2021 24Symbols Message [facility] Family & Internal Medicine [address] [phone] [facility] Provider results Social History Tobacco Use [...] Total Score: 0 01/06/20 22 9:55 AM BOAT WASHER documented as of this encounter Care Teams Police Stenographer Relationship Specialty Start Date End Date Phu Valladares DO [address] [place] [id number] PCP - General FAMILY PRACTICE 04/06/20 documented as of this encounter
--- OUTSIDE RECORDS SUMMARY | 2024-10-22 00:54 | XMS_ITS | Encounter Summary ---
Author Organization [facility] Address [address] [place] [address] Care Team Providers Care Hole Digger Operator Name Role Phone Phu Valladares DO Primary Care Provider + Encounter Details Date Type Department Care Team (Late st Contact Info) Description 04/24/2020 June Blackbox Message [facility] [address] [place] [id number] [facility], [facility] Provider Proxy Access Request Social History [...] COVID-19? No / Unsure 04/06/2020 1:02 PM SUPERVISOR PUMPING documented as of this encounter Plan of Treatment Not on file documented as of this encounter Visit Diagnoses Not on filedocumented in this encounter Additional Health Concerns Infection Onset Date Last Indicated Resolved Time COVID-19 Rule Out 03/01/2021 03/01/2021 03/01/2021 11:36 AM SUPERVISOR PUMPING COVID-19 Rule Out 03/01/2021 03/01/2021 03/02/2021 6:37 PM SUPERVISOR PUMPING COVID-19 Rule Out 03/05/2021 03/05/2021 03/12/2021 12:32 AM SUPERVISOR PUMPING documented as of this encounter Care Teams Hole Digger Operator Relationship Specialty Start Date End Date Phu Valladares DO [address] [place] [id number] PCP - General FAMILY PRACTICE 04/06/20 documented as of this encounter
--- NOTE | 2024-10-22 06:40 | WPDHPUPDATE1 ---
History and Physical Update Update Date/Time: 10/22/24 06:40 History and Physical has been reviewed, including an updated exam of the patient. There are NO changes in the patient's condition. Risks, benefits, and alternatives have been discussed and questions answered. Patient agrees to proceed with procedure.
[2024-10-22] MEDS: LACTATED RINGERS 1,000 ML 30 ML IV CONT ×2 (07:56→10:46)
[2024-10-22 08:14] LABS: BEDSIDEPREGUCG Negative (Negative)
[2024-10-22 08:23] LABS: INR 1.0; Prothrombin Time 13.2 Seconds (11.1-14.7)
[2024-10-22 08:24] LABS: Partial Thromboplastin Time 26.5 Seconds (22.3-36.8)
--- NOTE | 2024-10-22 08:57 | P.PNAN_ITS ---
Anes - Initial Pre Proc Eval Procedure: Operation Date: 10/22/24 09:30 Proposed Procedures p Right Extracorporeal Shock Wave Lithotripsy - Andrew Spencer MD Date/Time: 10/22/24 08:57 Surgeon: Andrew Spencer MD Pre Op Diagnosis: right upj stone Patient Data Age: 44 Gender: F Height: 1.78 m Weight: 111.8 kg Last Vital Signs Temp 36.2 C L 10/22/24 07:56 Pulse 89 10/22/24 07:56 Resp 16 10/22/24 07:56 BP 118/82 10/22/24 07:56 Pulse Ox 98 10/22/24 07:56 O2 Del Method Room Air 10/22/24 07:56 Allergies Allergy/AdvReac Type Severity Reaction Status Date / Time Penicillins Allergy Unknown UNKNOWN Verified 10/19/24 09:11 morphine AdvReac Mild Itching Verified 10/19/24 09:11 Home Medications ?Medication ?Instructions ?Recorded ?Confirmed ?Type hydrocodone 5 mg-acetaminophen 300 1 tablet PO Q6H PRN pain #12 tabs 10/17/24 10/19/24 Rx mg tablet Laboratory Tests 10/22/24 10/22/24 07:59 08:12 PT 13.2 Seconds (11.1-14.7) INR 1.0 APTT 26.5 Seconds (22.3-36.8) POC Urine HCG, Qual Negative (Negative) Patient hx anesthesia problems: none Family hx anesthesia problems: none Results Review: All pre-operative results and documents have been reviewed as part of the pre- operative evaluation. 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 Code status: Full code. Smoking packs per day: 1 Smoking cigarettes per day: 20.0 Years smoked: 10 Smoking pack-years: 10.00 Smoking status: Former smoker Tobacco type: cigarettes and e-cigarettes/vaping Additional smoking assessment comments: Vaping currenetly Alcohol intake: current Substance use: never Substance use type: marijuana Other substance usage details: occasional Do You Feel Safe in your Home?: Yes Lack of Transportation: No Lack of Food: Never True Current Housing: I Have Housing Concerned About Future Housing: No Difficulty Paying Gas/Electric Bills: No Difficulty Paying for Meds: No Currently Unemployed: No Education: Trade/Vocational Certificate Difficulty w/ Childcare or Family Care: No Living arrangements: with family Additional living arrangements comments: Lives with spouse. They have 2 children. Occupation/Education: occupation Spiritual care concerns: No Anes - Eval Final PreProcedure Day of Procedure 10/22/24 08:57 Patient weight: obese Heart: regular rate and rhythm Lungs: clear to auscultation Airway: Mallampati scale class II Neurological: alert and oriented Last oral intake: >/= 8 hours ASA classification: II Emergent: no Anesthetic plan: proceed Anesthesia type and monitoring: general LMA and standard monitoring Results Review: All pre-operative results and documents have been reviewed as part of the pre- operative evaluation. Informed Consent: The patient's anesthetic plan and its attendant risks and benefits were discussed with the patient/family/POA. Questions were solicited and answers provided to the satisfaction of the patient/family/POA.
[2024-10-22] MEDS: ceFAZolin 2 GM in SODIUM CHLORIDE 0.9% IV 50 ML 100 ML IVPB (09:25)
--- NOTE | 2024-10-22 09:45 | W.PM.PROC2 ---
Procedure Note - Detailed Date of Procedure 10/22/24 Pre-op Diagnosis Right UPJ stone Post-op Diagnosis Same Procedure Performed Right ESWL Surgeon Andrew Spencer MD Anesthesia General Description of Procedure The patient was brought to the operative suite where she was placed in the supine position on the Dornier lithotripsy table. The focal point of the lithotripter was placed at a 1.2cm right renal calculus. A total of 2500 shocks were delivered at a power setting of 4. There appeared to be good fragmentation of the stone. The patient tolerated the procedure well and was taken to the recovery room in good condition. Drains Yes Packing No
[2024-10-22] MEDS: fentaNYL CITRATE INJ (*CRX) 100 MCG/2 ML VIAL 25 MCG IV PUSH ×8 (10:24→10:45)
[2024-10-22] MEDS: ONDANSETRON INJ 4 MG/2 ML VIAL IV PUSH (10:24)
== END 2024-10-22 11:56 | disposition home or self-care (01) ==
PROVIDERS: PCP Family Medicine; Visit Provider Urology
PROC: (CPT 50590; principal; 2024-10-22 09:30)
DX: N20.1 Calculus of ureter (principal); N80.9 Endometriosis, unspecified; F17.290 Nicotine dependence, other tobacco product, uncomplicated; F12.90 Cannabis use, unspecified, uncomplicated; E66.9 Obesity, unspecified; Z68.35 Body mass index [BMI] 35.0-35.9, adult; Z79.891 Long term (current) use of opiate analgesic; Z98.890 Other specified postprocedural states; Z87.19 Personal history of other diseases of the digestive system; Z80.1 Family history of malignant neoplasm of trachea, bronchus and lung
CPT/HCPCS: 50590; 36415; 74018; 85610; 85730; J0690; J1200; J2003; J2405; J2704; J3010; J7120

== ENCOUNTER 2024-12-13 16:20 | Outpatient (CLI) | payer BC, SELFPAY ==
--- NOTE | ~2024-12-13 | XR_ITS ---
EXAMINATION: XR knee LT min 4V, 12/13/2024 16:35 CDT HISTORY: Pain in left knee x 4 days, fell last friday, no surg COMPARISON: No comparisons available. Findings: No acute fracture or malalignment. No significant degenerative changes. Soft tissues unremarkable. Impression: No acute fracture or malalignment. Reviewed, dictated and finalized at location P. Impression: No acute fracture or malalignment.
== END 2024-12-13 16:21 | disposition home or self-care (01) ==
PROVIDERS: PCP Family Medicine; Visit Provider Family Medicine
DX: M25.562 Pain in left knee (principal)
CPT/HCPCS: 73564